=== PATIENT | female | born 1995 | race Caucasian/White ===

== ENCOUNTER → 2018-04-09 12:10 | Outpatient (CLI) | payer OTHER, SELFPAY ==
[2018-04-09 13:01] LABS: hCG Titer Quant., Serum 1918 mIU/mL (<9 non-preg)
--- OUTSIDE RECORDS SUMMARY | 2018-06-03 19:58 | XMS RPT_ITS ---
:07/05/1963 Author Organization [employer] Address [address] [place] [address] Phone Care Team Providers Name Role Phone Aj FERRO, Catalino Guerra Unavailable Reason for Visit Reason For Visit Description Start Date New - 1st visit with practice Preliminary reason for visit data, not yet signed by the author as of right knee pain Preliminary reason for visit data, not yet signed by the author as of Chief Complaint Chief Complaint Description Start Date right knee pain Preliminary chief complaint data, not yet signed by the author as of Instructions No information available. Plan of Care Type Date Detail Appointment 07:00 AM Dean Salinas PT, [address], [place], [address], Appointment 11:15 AM Catalino Rocha MD, [address] [place] [address], [place], [address], Appointment 07:00 AM Dean Salinas PT, [address], [place], [address], Appointment 07:30 AM Catalino Rocha MD, [address] , [place], [address], Appointment 01:10 PM Sydnee Sanchez PA-C, [address] [place], [address], Pending order XR KNEE 1-2 VWS-RT Medications Medication Instructions Start Stop Generic Name NDC Provider Date Date MILK THISTLE takes one daily MILK THISTLE 06295720122 Aarti CAPS 0 CAPS Czyzyk PA-C CALCIUM 1200+D3 takes 1 tablet CALCIUM-MAGN 46369574050 Hanna Gordon TABLET EXTENDED daily 0 ESIUM-VITAMI DIRECTOR OF HOTEL 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 RELEASE 24 HOUR N D BR95A-CIP VITAMIN C 500 MG takes 1 tablet ASCORBIC 58425780829 Hanna Gordon TABS daily 0 ACID DIRECTOR OF HOTEL OPERATIONS PROBIOTIC CAPS takes 1 capsule PROBIOTIC [id number] Hanna Gordon daily 0 PRODUCT DIRECTOR OF HOTEL OPERATIONS MULTIVITAMIN takes 1 tablet MULTIPLE 77762884075 Hanna Gordon ADULT TABS once a day 0 VITAMINS-MIN DIRECTOR OF HOTEL OPERATIONS ERALS Conditions or Problems Problem Name Problem Onset Status Entry Provider Comment Standard Annotate Code Date Date Description Acute medial 887073594 Active Sydnee L Acute meniscal meniscus (SNOMED 12/27 12/27 Sanchez tear, medial tear of CT) PA-C right knee Left ACL 651564396 Active Sydnee L Rupture of tear (SNOMED 12/27 12/[address]) PA-C cruciate ligament Complete 392128006 Active Sydnee L Complete tear, tear of (SNOMED 12/27 12/27 Sanchez knee, anterior right ACL CT) PA-C cruciate ligament Rupture of 678615044 Active Trae Vasquez Rupture of dislocation right (SNOMED 07/22 07/22 Joseph FERRO tendon of no tear proximal CT) biceps biceps tendon, subsequent encounter Complete 544355579 Active Trae Vasquez Full thickness tear of (SNOMED 06/22 06/22 Joseph FERRO rotator cuff right CT) tear rotator cuff Tear of 389154042 Active Trae Vasquez Disorders of 2005 surgery anterior (SNOMED 06/22 06/22 Joseph FERRO musculoskeletal reconstructi cruciate CT) implants and on spectron ligament repairs ortho graft, initial encounter Tear of 720221391 Active Trae Vasquez Current tear of medial (SNOMED 06/22 06/22 Joseph FERRO medial meniscus of CT) cartilage right knee, AND/OR meniscus current, of knee unspecified tear type, initial encounter Hx of 357836654 Active Trae Vasquez History of right knee anterior (SNOMED 06/22 06/22 Joseph FERRO reconstruction [address]) of anterior ligament cruciate tear ligament tear reconstructi on Hx of 469378031 Active Trae Vasquez History of left Dr anterior (SNOMED 06/22 06/22 Joseph FERRO operative Joseph cruciate CT) procedure on ligament knee surgery Impingement 705955773 Active Eduardo R Impingement syndrome of (SNOMED 06/07 06/07 Tu FERRO syndrome of right CT) shoulder region shoulder Allergies, Adverse Reactions, Alerts Allergy Name Reaction Start Date Severity Status Provider Description TOMATOES rash Critical Active Aarti SALCEDO-C CASHEWS rash Moderate Active Trae Ruiz MD DUST rash Mild Active Trae Ruiz MD DOGS AND CATS Critical Active Trae Ruiz MD CORNS Critical Active Trae Ruiz MD PEANUTS Critical Active Aarti Carr PA-C FEATHERS Critical Active Aarti Carr PA-C MORPHINE convulsions, Critical Active Colincharline Anaya SULFATE shortness of breath, blacking out SEASONAL Critical Active Colin Anaya Social History No information available. Vital Signs Date Name Value Unit Description BMI (Body Mass 20.62 kg/m2 Body Mass Index Index) [Ratio] Preliminary vital sign data, not yet signed by the author as of BP Diastolic 68 mm[Hg] blood pressure, diastolic Preliminary vital sign data, not yet signed by the author as of BP Systolic 100 mm[Hg] blood pressure, systolic Preliminary vital sign data, not yet signed by the author as of Heart Rate 65 /min pulse rate E&M Preliminary vital sign data, not yet signed by the author as of Height 63 [in_us] height E&M Preliminary vital sign data, not yet signed by the author as of Height 160 cm height in centimeters E&M Preliminary vital sign data, not yet signed by the author as of Weight Measured 116 [lb_av] weight E&M Preliminary vital sign data, not yet signed by the author as of Weight Measured 53 kg weight in kilograms E&M Preliminary vital sign data, not yet signed by the author as of Results Date Name Value Unit Range Flag Description Office Visit: New - 1st visit with practice, Rm: 7 MEDS REVIEW Done Documentation of current medications (procedure) Preliminary observation data, not yet signed by the author as of Preliminary observation data, not yet signed by the author as of XRAY HX of the right knee xray history - PA Flex and Beatty on 06/22/2017 at [facility] Preliminary observation data, not yet signed by the author as of MRI HX of the right knee MRI (magnetic on 07/06/[address] [facility]) history Preliminary observation data, not yet signed by the author as of Clinical Summary: [facility] [place] Office Visit: Postop - subsequent visit, Rm: 43 MEDS REVIEW Done Documentation of current medications (procedure) Clinical Summary: [facility] [place] Procedures Code Procedure Name Date Entry Date [id number] POLAR CARE [place] COMBO - KNEE (BREG) J1453C CRUTCHES - ADULT ([facility]) L1833 T-SCOPE POST-OP KNEE (BREG) P2050Q OTS ACL (DJO) J1041X CUSTOM ACL (DJO) G8730 Pain assessment documented as positive - follow-up documented G8427 Current medications documented 1036F Tobacco screening was negative - non user G8420 BMI documented within normal parameters - no follow-up plan is required G8783 Blood pressure within normal parameters - no follow-up required [facility]-[id number] Patient Encounter Medications Administered No information available. Immunizations No information available. Advance Directives There may be information available, but it has not been provided by the sender. Assessments There may be information available, but it has not been provided by the sender. Review of Systems There may be information available, but it has not been provided by the sender. Family History There may be information available, but it has not been provided by the sender. History of Past Illness There may be information available, but it has not been provided by the sender. History of Present Illness There may be information available, but it has not been provided by the sender.
--- OUTSIDE RECORDS SUMMARY | 2018-06-03 19:59 | XMS RPT_ITS ---
:1995 Author Organization OHIP Care Team Providers Name Role Phone Monique Benjamin Attending Unavailable Deoras, Shivani Referring Unavailable SealsRyan Attending Unavailable Deoras, Shivani Primary Care Unavailable MysRyan Referring Unavailable Christina Kumar Attending Unavailable Deoras, Shivani Primary Care Unavailable Christina Kumar Referring Unavailable SouravMonique Attending Unavailable Deoras, Shivani Primary Care Unavailable Deoras, Shivani Referring Unavailable Deoras, Shivani Primary Care Unavailable PROVIDER, UNKNOWN Attending Unavailable Gardenia Villafana Attending Unavailable Deoras, Shivani Referring Unavailable Deoras, Shivani Primary Care Unavailable Deoras, Shivani Referring Unavailable Deoras, Shivani Primary Care Unavailable UNKNOWN, PROVIDER Attending Unavailable Deoras, Shivani Referring Unavailable Deoras, Shivani Primary Care Unavailable Jass Scott Attending Unavailable DEORAS, SHIVANI S Attending Unavailable REFERRED, SELF Referring Unavailable DEORAS, SHIVANI S Primary Care Unavailable DEORAS, SHIVANI S Attending Unavailable REFERRED, SELF Referring Unavailable DEORAS, SHIVANI S Primary Care Unavailable AIDEN CRESPO Attending Unavailable Kathie CRESPO Attending Unavailable DEORAS, SHIVANI S Primary Care Unavailable PROBLEMS PROBLEMS DATE TYPE CONDITION / CODE ATTENDING STATUS SOURCE 04/26/2018 Unknown Z34.90 - Monique Benjamin Active [place] Encounter for Community supervision of Hospital normal , Repository unspecified, unspecified trimester / Z34.90(ICD-10) 04/26/2018 Unknown Z34.01 - Monique Benjamin Active [place] Encounter for Community supervision of [facility] normal first Repository , first trimester / Z34.01(ICD-10) 04/26/2018 Unknown Z3A.01 - Less Monique Benjamin Active [place] than 8 weeks Community gestation of Hospital / Repository Z3A.01(ICD-10) 04/11/2018 Unknown N91.2 - Antonio Active [place] Amenorrhea, Christina [facility] unspecified / Hospital N91.2(ICD-10) Repository 11/11/2017 Admitting Pneumonia, Jass Scott [employer] Diagnosis unspecified System organism / Repository J18.9(ICD-10) 11/11/2017 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) use of System non-steroidal Repository non-inflam (NSAID) / Z79.1(ICD-10) 11/11/2017 Admitting Pleurodynia / SoniaBradyin Active [facility] Diagnosis R07.81(ICD-10) System Repository 07/19/2017 Admitting Cardiac murmur, Unknown Active [facility] Diagnosis unspecified / System R01.1(ICD-10) Repository 07/19/2017 Admitting Contusion of Unknown Active [facility] Diagnosis lower back and System pelvis, initial Repository encounter / S30.0XXA(ICD-10) 07/19/2017 Admitting Unspecified Unknown Active [facility] Diagnosis injury of head, System initial encounter Repository / S09.90XA(ICD-10) 07/19/2017 Admitting Sprain of Unknown Active [facility] Diagnosis unspecified System ligament of left Repository ankle, init encntr / S93.402A(ICD-10) 07/19/2017 Admitting Sprain of Unknown Active [facility] Diagnosis unspecified site System of left knee, Repository initial encounter / S83.92XA(ICD-10) 07/19/2017 Admitting Fall (on) (from) Unknown Active [facility] Diagnosis other stairs and System steps, initial Repository encounter / W10.8XXA(ICD-10) 07/19/2017 Admitting Pain in Unknown Active [facility] Diagnosis unspecified ankle System / M25.579(ICD-10) Repository 06/21/2017 Admitting Urinary tract JeromGardenia woods Active [facility] Diagnosis infection, site System not specified / Repository N39.0(ICD-10) 06/21/2017 Admitting Rash and other Gardenia Villafana Active [facility] Diagnosis nonspecific skin System eruption / Repository R21(ICD-10) 05/22/2017 Active Unspecified lump DROGELL, Active [facility] in unspecified [facility] breast / Repository N63.0(ICD-10) 05/22/2017 Admitting Unknown / Kathie CRESPO Active [facility] diagnosis UNK(Unknown) [facility] Repository 04/30/2017 Admitting Unsp injury of Unknown Active [facility] Diagnosis left wrist, hand System and finger(s), Repository init encntr / S69.92XA(ICD-10) 04/30/2017 Admitting Striking against Unknown Active [facility] Diagnosis other stationary System object, initial Repository encounter / W22.09XA(ICD-10) PROCEDURES PROCEDURES No Procedure Records FoundRESULTS RESULTS CT/NG [facility] BY PCR Collected: 04/26/2018 Status: F Source: MICHELLE 6:48 PM [facility] REPOSITORY TYPE CODE TESTS RESULT OUT OF RANGE REFERENCE UNITS LAB L8200.2100 Negative Normal Chlam Negative Trac PCR LAB L8200.2200 Negative Normal NG by Negative PCR Performed By: #### L8200.2000 #### [facility] [address] [place], [address] PUBLIC INFORMATION DIRECTOR OFFICE VISIT Observed: 04/26/2018 Status: F Source: MICHELLE REPORT 1:19 PM [facility] REPOSITORY [facility] [address] [place] [address] OFFICE VISIT Date of Service: 04/26/18 MR#: [id number] Acct: [id number] Name: DELMA BARTON Rep #: [id number] : 1995 Provider: JOANN Benjamin Age/Sex: 22/F Location: [facility] Status: Signed Intake Intake Visit Reasons: NOB LMP? Medications promethazine 12.5 mg tablet 12.5 mg PO Q6H PRN #60 tab 04/22/18 [Rx] Last Menstral Period: 02/25/17 HPI NOB LMP?: Details: DELMA BARTON is a 22 year old who presents for New OB visit. OB Visit BEV Calculator Estimated Delivery Date 12/12/18 Based on Ultrasound Date 04/26/18 Current WG 7w 1d Number 1 Expected Delivery Route/Plan Specific Issue/Plans flu vaccine: declines minichart given: yes tdap vaccine: [] rhogam: [] LARC form signed: [] labor support person: Amy pain management: [] cut cord/dad catch: [] : [] PP control planned: [] special requests: [] Initial Weight: Not Recorded Date Weight BP Urine PrFHR FuHt Pres MoCTX DilationFetal StVisit NoProviderComments E ot v te GA G Effac lucose ed Menstrual History Last Menstral Period: 02/25/17 Reported LMP: approximate (month known) (Feb) Normal amount/duration: Yes On hormonal BC at conception: No Antepartum Record Genetic Screening: Congenital Heart Defect: Other, Neural Tube Defect: Other, Hemoglobinopathy Or Carrier: Other, Cystic Fibrosis: Other, Chromosome Abnormality: Other, Nicola-Sachs: Other, Hemophilia: Other, Intellectual Disability/Autism: Other (Cousin with autism), Recurrent Loss/Stillbirth: Other, Other Structural Defect: Other, Other Genetic Disease: Other, Maternal Metabolic Disorder: Other Comments/Counseling: Reviewed and negative Infection History: Live with someone with TB or Exposed to TB: No, Patient or Partner has history of Genital Herpes: No, Rash or Viral illness since last mentrual period: No, Prior GBS-Infected child: No, History of STD: No, HIV Infection: No, History of Hepatitis: No, Recent travel outside of : No, Concern for Hep exposure: No, Varicella immune: Yes (had vaccine) Medical History Medical History: Negative: Diabetes, Hypertension, Heart disease, Auto-immune disorder, Kidney disease/UTI, Neurologic/epilepsy, Psychiatric, Depression/ depression, Hepatitis/liver disease, Varicosities/phlebitis, Thyroid dysfunction, Trauma/domestic violence, History of blood transfusions, D (Rh) Sensitized, Pulmonary (e.g.,TB,Asthma), Seasonal allergies, Drug/latex allergies/reactions, Breast, 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, Operations/hospitalizations, Anesthetic complications, History of abnormal pap, Uterine anomaly/shandra, Infertility, Anti-retroviral treatment, Relevant family history, Other ROS Const Reports as per HPI Card Denies chest pain, Denies shortness of breath Resp Denies shortness of breath GI Denies change in stools Denies difficulty urinating, Denies abnormal vaginal bleeding, Denies vaginal odor, Denies vaginal itching, Denies vaginal discharge Exam Const General: cooperative, healthy appearing, well developed Nutritional Appearance: average body habitus, well nourished Orientation: oriented x3 Neck Neck: normal visual inspection Neck mass: No Thyroid: thyroid normal Chest Chest palpation AND inspection: normal inspection of the chest Breast inspection: normal inspection of the breasts, normal inspection of the axillae Resp Effort AND Inspection: normal respiratory effort GI Inspection: normal to inspection Palpation: soft, nontender, no masses External Female Exam: normal external appearance, normal appearance of the urethra Urethra: normal appearance of the urethra Speculum Exam - Vagina: normal appearance of the vagina, normal vaginal discharge Speculum Exam - Cervix: normal appearance of the cervix, closed cervix, other ( GCC collected) Bimanual Exam- Vagina AND Uterus: normal bimanual exam, uterine shape normal, uterine size normal (10 weeks) Bimanual Exam- Adnexa, other: normal adnexae, no adnexal masses, adnexae non-tender Other: CRL 10.5mm per US DAX: 7 wk 1 d. BEV 12/12/18 Skin General: no rashes or lesions noted, turgor normal Assessment AND Plan Problems 1. Encounter for supervision of normal first in first trimester Z34.01 Grav 1 BEV 12/12/18 BF: Amy 2. Less than 8 weeks gestation of Z3A.01 Plans NIPT Plan Patient oriented to practice and discussed care expectations and screenings. ACOG book offered to patient. labs and 19-20 week anatomy ultrasound ordered Genetic screening offered to patient and patient chose: NIPT RTO 4 weeks Coding Level of Care Code Off vis,new,level 4 Diagnoses Encounter for supervision of normal first in first trimester Z34.01 Trimester: first trimester Less than 8 weeks gestation of Z3A.01 Weeks of gestation: less than 8 weeks 04/26/18 1319 <Electronically signed by Monique THAKKAR> Date Monique THAKKAR Cosigner Signature: Date (if applicable) CC: HCG TITER QUANT., Collected: 04/09/2018 Status: F Source: MICHELLE SERUM 12:11 PM [facility] REPOSITORY Order Comment: PER REQ, PLEASE CALL DR KUMAR WITH RESULTS: [phone] TYPE CODE TESTS RESULT OUT OF RANGE REFERENCE UNITS LAB L700.8000 <9 non-preg mIU/mL High HCG 1918 QUANT. Result Comment: Critical Result(s) Called at: 13:02:31 04/09/2018 by: Charlie Fuentes to Performed By: #### L700.8000 #### [facility] [address] [place], [address] CTA CHEST W/ + W/O Observed: 11/11/2017 Status: F Source: [employer] CONTRAST 2:53 PM SYSTEM REPOSITORY Patient Name: DELMA BARTON CT Exam Date/Time 11/11/2017 14:33:39 EDT Exam CTA Chest w/ + w/o Contrast Ordering Physician MANJINDER RAMÍREZ DANIEL M Accession Number [id number] CPT4 Codes 21571 (), Q9967 () Reason For Exam dyspnea, chest pain Report Reasons for examination: Cough chest pain. CT scan of the chest were performed with bolus contrast and high resolution scans for CT pulmonary angiographic study, with images post-processed by myself on [employer] workstation, with 3D - volume rendered CT and MPR angiographic images reconstructed. The heart size is normal, and there are no pericardial or pleural effusions. There are no congestive changes in the pulmonary vasculature. The thoracic aorta is unremarkable. CT pulmonary angiographic examination is a high quality study, which demonstrates no evidence of acute pulmonary embolism. The right side of the heart, pulmonary outflow tract, right and left main, lobar, and larger segmental pulmonary arteries all appear clear. Note that the technique is limited for detection of small, subsegmental, peripheral emboli, but none are seen. IMPRESSION: 1.Negative CT scan of the chest for evidence of acute pulmonary embolism. 2. Left lower lobe alveolar infiltrate compatible with pneumonia Report Dictated on Final Dictating Physician: MD WONG WILLIAM Signed Date and Time: 11/11/2017 2:56 pm Signed by: MD WONG WILLIAM Transcribed Date and Time: 11/11/2017 2:57 CR CHEST PA/LAT Observed: 11/11/2017 Status: F Source: [employer] 1:31 PM SYSTEM REPOSITORY Patient Name: DELMA BARTON Diagnostic Radiology Exam Date/Time 11/11/2017 13:16:43 EDT Exam CR Chest PA/LAT Ordering Physician MANJINDER RAMÍREZ DANIEL M Accession Number [id number] CPT4 Codes 05112 () Reason For Exam cough, chest pain Report CHEST: CLINICAL INDICATION: Cough, chest pain TECHNIQUE: PA and Lateral COMPARISON: None FINDINGS: Patchy airspace opacities of the left lung base, which may represent atelectasis versus infiltrate. No pulmonary edema. No pleural effusions or pneumothorax. The cardiac and mediastinal silhouettes are normal. The osseous structures are unremarkable. IMPRESSION: Patchy airspace opacities of the left lung base, which may represent atelectasis versus infiltrate. Report Dictated on Final Dictating Physician: MD NEUMANN KEVIN Signed Date and Time: 11/11/2017 1:32 pm Signed by: MD NEUMANN KEVIN Transcribed Date and Time: 11/11/2017 1:33 HEMOGRAM W/ AUTODIFF Collected: 11/11/2017 Status: F Source: [employer] 12:31 PM SYSTEM REPOSITORY TYPE CODE TESTS RESULT OUT OF REFERENCE UNITS RANGE LAB IWBC 3.6-10.7 10*3/uL WBC Normal 5.1 LAB RBC 3.80-5.20 10*6/uL RBC Normal 3.81 LAB HGB 11.7-16.0 g/dL Hemoglobin Normal 11.8 LAB HCT 35.0-47.0 % Low Hematocrit 33.0 LAB MCV 79.0-98.0 fL MCV Normal 86.7 LAB MCH 26.0-34.0 pg MCH Normal 31.1 LAB MCHC 32.0-36.0 % MCHC Normal 35.9 LAB RDW 11.5-14.5 % RDW Normal 12.8 LAB PLT 140-440 10*3/uL Platelet Normal 176 LAB MPV 7.4-10.4 fL MPV Normal 9.8 LAB GRAN% 40.0-80.0 % Granulocytes Normal 51.7 LAB LYMP% 20.0-40.0 % Lymphocytes Normal 34.4 LAB MONO% 2.0-10.0 % Monocytes Normal 9.8 LAB EOS% 1.0-6.0 % Eosinophils Normal 3.4 LAB BAS% 0.0-2.0 % Basophils Normal 0.7 LAB ANC 1.8-7.0 10*3/uL Abs Normal Neutrophile Cnt 2.6 LAB ALC 1.0-4.3 10*3/uL Abs Lymph Cnt Normal 1.7 LAB AMC 0.0-0.8 10*3/uL Abs Monocyte Normal Cnt 0.5 LAB AEC 0.0-0.5 10*3/uL Abs Eosin Cnt Normal 0.2 LAB ABC 0.0-0.2 10*3/uL Abs Baso Cnt Normal 0.0 Performed By: #### HEMDF, BMP3, DDI2, TROPN, QWAL #### [employer] [facility] [address] [place] [address] BASIC METABOLIC PANEL Collected: 11/11/2017 Status: F Source: [employer] 12:31 PM SYSTEM REPOSITORY TYPE CODE TESTS RESULT OUT OF RANGE REFERENCE UNITS LAB NA3 137-145 mmol/L Sodium Normal 142 LAB K3 3.5-5.1 mmol/L Low Potassium 3.4 LAB CL3 98-107 mmol/L Chloride Normal 106 LAB CO23 22-30 mmol/L Carbon Normal Dioxide 28 LAB ANIN3 NA Anion Gap 9 LAB GLUC3 70-100 mg/dL Glucose Normal 80 LAB BUN3 7-20 mg/dL Urea Normal Nitrogen 12 LAB CRET3 0.52-1.25 mg/dL Normal Creatinine 0.75 LAB GF3BR >60 mL/min eGFR > 60.0 LAB GF3WR >60 mL/min eGFR OTHER > 60.0 Result Comment: Source- MDRD equation with creatinine calibration to IDMS(NKDEP) eGFR not recommended for drug dose adjustment LAB CA3 8.4-10.4 mg/dL Normal Calcium 9.4 Performed By: #### HEMDF, BMP3, DDI2, TROPN, QWAL #### [facility] [address] [place] [address] D-DIMER, INNOVANCE Collected: 11/11/2017 Status: F Source: [employer] 12:31 PM SYSTEM REPOSITORY TYPE CODE TESTS RESULT OUT OF REFERENCE UNITS RANGE LAB 2DDI 0.00-0.50 mg/L High D-Dimer, 0.60 [employer] Result Comment: [employer] D-Dimer values of <0.50 mg/L FEU can be used in combination with a pre-test probability model (e.g. Well's) to exclude pulmonary embolism (PE) disease, as well as an aid in the diagnosis of deep vein thrombosis (DVT). Performed By: #### HEMDF, BMP3, DDI2, TROPN, QWAL #### [facility] [employer] [facility] [address] [place] [address] TROPONIN I Collected: 11/11/2017 Status: F Source: [employer] 12:31 PM SYSTEM REPOSITORY TYPE CODE TESTS RESULT OUT OF RANGE REFERENCE UNITS LAB TROP4 0.000-0.034 ng/mL Normal Troponin I < 0.012 Result Comment: 0.046 - 0.400 = Indeterminate > 0.400 = Consider Myocardial Injury Performed By: #### HEMDF, BMP3, DDI2, TROPN, QWAL #### [facility] [address] [place] [address] HCG QUAL PREG Collected: 11/11/2017 Status: F Source: [employer] 12:31 PM SYSTEM REPOSITORY TYPE CODE TESTS RESULT OUT OF RANGE REFERENCE UNITS LAB QWLC m[IU]/mL Normal hCG NEGATIVE Qual Preg Result Comment: REF RANGE: Negative .... < 3 Questionable Rpt 48-72 Hr Positive ..... > 10 Performed By: #### HEMDF, BMP3, DDI2, TROPN, QWAL #### [employer] [facility] [address] [place] [address] CR ANKLE 3+ VIEWS Observed: 07/19/2017 Status: F Source: [employer] [facility] 1:14 PM SYSTEM REPOSITORY Patient Name: DELMA BARTON Diagnostic Radiology Exam Date/Time 07/19/2017 13:24:48 EDT Exam CR Ankle 3+ Views Left Ordering Physician MANJINDER RAMÍREZ DANIEL M Accession Number [id number] CPT4 Codes 90626 () Reason For Exam pain Report LEFT ANKLE: CLINICAL INDICATION: Left ankle pain. TECHNIQUE: AP, Lat, Oblique COMPARISON: None. FINDINGS: There is no evidence for fracture or dislocation. No bone lesion is identified. Mild lateral malleolus soft tissue swelling. IMPRESSION: Mild lateral malleolus soft tissue swelling. No fracture or dislocation. Report Dictated on Final Dictating Physician: MD NEUMANN KEVIN Signed Date and Time: 07/19/2017 1:15 pm Signed by: MD NEUMANN KEVIN Transcribed Date and Time: 07/19/2017 1:24 CR KNEE 3 VIEWS Observed: 07/19/2017 Status: F Source: [facility] LEFT 1:13 PM SYSTEM REPOSITORY Patient Name: DELMA BARTON Diagnostic Radiology Exam Date/Time 07/19/2017 13:24:48 EDT Exam CR Knee 3 Views Left Ordering Physician MANJINDER RAMÍREZ DANIEL M Accession Number [id number] CPT4 Codes 84090 () Reason For Exam pain/injury Report Left knee: 07/19/2017. Clinical Information: Pain. Findings: Three views of the left knee reveal the bones to be well mineralized. There is no evidence of fracture or dislocation. The joint spaces are maintained. No joint effusion is identified. Screws are present in the distal femur and proximal tibia from prior ligamentous reconstruction. Impression: No acute process. Report Dictated on Final Dictating Physician: MD BOWEN RISA Signed Date and Time: 07/19/2017 1:14 pm Signed by: MD BOWEN RISA Transcribed Date and Time: 07/19/2017 1:24 Observed: 06/21/2017 Status: F Source: [facility] CHLAMYDIA AND GC PCR 10:55 PM SYSTEM REPOSITORY PANEL Specimen Source Comment:[facility] Patient name: DELMA BARTON M.R.N.: [id number] : 1995 Age: 22 Sex: F Ord. Physician: GARDENIA VILLAFANA Location: [place] [address] Copy to: GARDENIA VILLAFANA DISCHARGED: 06/22/17 Adm. Date: 06/21/17 MICROBIOLOGY ORDER#: [id number] COLLECTED: 06/21/17 22:55 SOURCE: Cervix RECEIVED: 06/21/17 23:01 OE C O M M E N T S Specimen Source Comment:Cervix Chlamydia trachomatis PCR FINAL 06/22/17 12:12 06/22/17 NOT Detected Chlamydia trachomatis Nucleic Acid NOT Detected by DNA Amplification using the [employer] System. Culture is the only recommended test in medical-legal cases such as suspected child abuse or molestation. Neisseria gonorrhoeae PCR FINAL 06/22/17 12:12 06/22/17 NOT Detected Neisseria gonorrhoeae Nucleic Acid NOT Detected by DNA Amplification using the [employer] System. Culture is the only recommended test in medical-legal cases such as suspected child abuse or molestation. Performed By: #### CTNGP #### [address] [address] Observed: 06/21/2017 Status: F Source: [facility] [employer] VAGINAL PATHOGENS DNA 10:55 PM SYSTEM REPOSITORY - AFFIRM [facility] Patient name: JESUS BARTONRAJWINDER Guerra M.R.N.: [id number] : 1995 Age: 22 Sex: F Ord. Physician: GARDENIA VILLAFANA Location: Copy to: GARDENIA VILLAFANA DISCHARGED: 06/22/17 Adm. Date: 06/21/17 MICROBIOLOGY ORDER#: [id number] COLLECTED: 06/21/17 22:55 SOURCE: Vagina (Vagina) RECEIVED: 06/21/17 23:01 Danni - Vaginal Pathogens DNA FINAL 06/23/17 07:08 06/23/17 POSITIVE Gardnerella - Vaginal Pathogens DNA FINAL 06/23/17 07:08 06/23/17 POSITIVE Trichomonas - Vaginal Pathogens DNA FINAL 06/23/17 07:08 06/23/17 Negative Performed By: #### AFIRM #### [address] [address] Observed: 06/21/2017 Status: F Source: [facility] [employer] CULTURE URINE 10:55 PM SYSTEM REPOSITORY Specimen Source Comment:Urine, clean catch [facility] Patient name: JESUS BARTONRAJWINDER Guerra M.R.N.: [id number] : 1995 Age: 22 Sex: F Ord. Physician: GARDENIA VILLAFANA Location: Copy to: GARDENIA VILLAFANA DISCHARGED: 06/22/17 Adm. Date: 06/21/17 MICROBIOLOGY ORDER#: [id number] COLLECTED: 06/21/17 22:55 SOURCE: Urine RECEIVED: 06/21/17 23:09 OE C O M M E N T S Specimen Source Comment:Urine, clean catch CULTURE URINE FINAL 06/24/17 08:17 06/23/17 Normal urogenital geo present. <10,000 CFU/ml Streptococcus agalactiae (Group B) Susceptibility testing not routinely performed. Group B streptococcus is universally susceptible to beta-lactam antibiotics and vancomycin. If patient is beta-lactam allergic, please call [facility] Microbiology lab ([phone]) within 2 days to request susceptibility testing. If isolated from urine, Group B strep may indicate colonization or infection. Performed By: #### C/UR #### [place] [place] [address] BREAST LIMITED Observed: 05/31/2017 Status: F Source: [place] UNILATERAL 3:05 PM [facility] REPOSITORY [facility] Imaging Services [address] [place] [address] Breast Limited Unilateral MR#: [id number] Acct: [id number] Name: DELMA BARTON Rep #: [id number] : 1995 F 22 From: Santos Crooks MD PCP: Shivani Nur MD Status: REG CLI Study: Breast Limited Unilateral Date of Exam: 05/31/17 Exam# [id number] Ordering Dr: Ryan Sanabria MD STUDY: ULTRASOUND BREAST - RIGHT REASON FOR EXAM: Female, 22 years old. Palpable lump in the upper outer quadrant of the right breast. TECHNIQUE: Axial and longitudinal images of the RIGHT breast were performed with a high resolution ultrasound transducer. COMPARISON: None. FINDINGS: RIGHT Breast: There is a 6 mm x 8 mm x 5 mm lymph node at the 10:00 in the breast at 6 cm from the nipple. This corresponds to the palpable abnormality. IMPRESSION: The palpable abnormality corresponds to an 8 mm x 6 mm x 5 mm lymph node. ASSESSMENT CATEGORY: BIRADS Category 2: Benign. A letter regarding these results will be sent to the patient by the facility within 30 days. Electronically Signed: Santos Crooks MD at 19:24 EST Tel [phone], Service support , STUDY: ULTRASOUND BREAST - LEFT REASON FOR EXAM: Female, 22 years old. Palpable abnormality in the left retroareolar region. Breast discharge. TECHNIQUE: Axial and longitudinal images of the LEFT breast were performed with a high resolution ultrasound transducer. COMPARISON: None. FINDINGS: LEFT Breast: There is a 9 mm x 10 mm x 5 mm lymph node at the 3:00 position in the breast at 1 cm from nipple. US/Breast Limited Unilateral IMPRESSION: 9 mm x 10 mm x 5 mm lymph node in the retroareolar region of the left breast. ASSESSMENT CATEGORY: BIRADS Category 2: Benign. A letter regarding these results will be sent to the patient by the facility within 30 days. Electronically Signed: Santos Crooks MD at 19:24 EST Tel [phone], Service support , CC: Shivani Nur MD; Ryan Sanabria MD Sheet Metal Apprentice: Signed ED PROV NOTE Observed: 05/22/2017 Status: COMPLETED Source: [place] 6:55 PM [facility] REPOSITORY HNO ID: [id number] Author: Aiden Crespo MD Service: Emergency Medicine Author Type: Physician Type: ED Provider Notes Filed: 05/22/2017 6:58 PM Note Text: 22-year-old female presenting for a left breast mass. Patient states she noticed a palpable mass left breast. It is tender with palpation. She denies overlying redness, warmth. She denies fevers, chills. She denies trauma or injury. She is a family history of breast cancer. She saw her PCP has an appointment with a plating equipment tender on Wednesday. She states she noted some blood in her bra this morning and was concerned about presented for evaluation. On exam, she is nontoxic, well-appearing. Afebrile. Nontoxic, well-appearing. She has a small palpable left breast mass that is movable. She does have cystic breasts bilaterally. No overlying redness, warmth. No discharge from the nipple. No signs of cellulitis or abscess. Exam done with resident physician, Dr. Nieto. At this point, we recommended follow-up with her plating equipment tender for further workup and management. Patient and mother were comfortable with this plan. Discussed the importance of close follow-up with the specialist. They verbalized understanding. Aiden Crespo MD 05/22/17 1858 ED PROV NOTE Observed: 05/22/2017 Status: COMPLETED Source: [place] 6:29 PM [facility] REPOSITORY HNO ID: [id number] Author: Petra Vick MD Service: Emergency Medicine Author Type: Resident Type: ED Provider Notes Filed: 05/22/2017 10:21 PM Note Text: Attestation signed by Aiden Crespo MD at 05/22/2017 11:14 PM Attending Note I evaluated the patient and personally participated in the dennis components. I agree with the resident's findings and plan as documented and have discussed the case and management of the patient's care with the resident. Signature: Aiden Crespo MD Date: 05/22/2017 Time: 11:13 PM ED Provider Note Patient Name: Delma Barton SERVICE DATE: 05/22/17 History Patient presents with: Breast Mass History provided by: Patient hand alterations tailor used: No Patient is a 22-year-old female presenting with a left breast mass that has been present for the last few days. Patient states she went to her primary care physician with the mass and was instructed to make an appointment with PUBLIC INFORMATION DIRECTOR which is scheduled for May 25, 2017. Patient states however this morning when she woke up she noticed blood in her bra the left breast that she assumed was from the lesion on her breast. Patient's review was of systems was otherwise negative. PAST MEDICAL HISTORY Diagnosis Date - ACL (anterior cruciate ligament) tear - Dysfunctional uterine bleeding - Dysmenorrhea PAST SURGICAL HISTORY Procedure Laterality Date - NONE FAMILY HISTORY Problem Relation Age of Onset - Breast Cancer Maternal Grandmother - Cancer - other [Other] [OTHER] Maternal Grandfather - Hypertension Mother - Lung cancer [Other] [OTHER] Maternal Grandmother Social History Social History Main Topics - Smoking status: Never Smoker - Smokeless tobacco: None - Alcohol use No Comment: Non-drinker - Drug use: No - Sexual activity: Not Asked ALLERGIES No Known Allergies Review of Systems Constitutional: Negative for activity change, chills and fever. HENT: Negative for hearing loss, sinus pressure and tinnitus. Eyes: Negative for pain, discharge and itching. Respiratory: Negative for cough, shortness of breath and stridor. Gastrointestinal: Negative for abdominal pain, constipation and vomiting. Genitourinary: Negative for dysuria, frequency, hematuria and urgency. Musculoskeletal: Negative for arthralgias, joint swelling and myalgias. Skin: Negative for color change, pallor, rash and wound. Neurological: Negative for dizziness, weakness and numbness. Psychiatric/Behavioral: Negative for agitation and confusion. The patient is not nervous/anxious. Physical Exam BP 118/95 Pulse 63 Temp (Src) 97.5 (Oral) Resp 16 Ht 5' 5 (1.65m) Wt 155 lb (70.3kg) SpO2 99% BMI 25.79 kg/(m2). Physical Exam Constitutional: She is oriented to person, place, and time. She appears well-developed and well-nourished. No distress. HENT: Head: Normocephalic and atraumatic. Mouth/Throat: Oropharynx is clear and moist. No oropharyngeal exudate. Eyes: Right eye exhibits no discharge. Left eye exhibits no discharge. Neck: No tracheal deviation present. Cardiovascular: Normal rate, regular rhythm and normal heart sounds. No murmur heard. Pulmonary/Chest: No stridor. No respiratory distress. She has no wheezes. She has no rales. Abdominal: She exhibits no distension. There is no tenderness. There is no rebound. Musculoskeletal: She exhibits no edema or tenderness. Lymphadenopathy: She has no cervical adenopathy. Neurological: She is alert and oriented to person, place, and time. Skin: Skin is warm and dry. No rash noted. She is not diaphoretic. No erythema. No pallor. Psychiatric: She has a normal mood and affect. Her behavior is normal. Diagnostic Testing ED Labs Ordered and Reviewed - No data to display Procedures Medical Decision Making / ED Course ED Course On evaluated the patient and appreciated the 1 cm diameter nodule at the 2 O'clock position the patient is sitting up light and the need for any pole while patient is laying flat in bed. No imaging obtained as patient is denies fevers or chills, the area is not erythematous And no flatulence or drainage appreciated on palpation. 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 Discussed this plan with the patient and patient is in agreement with the plan. Encounter Diagnosis ICD-10-CM 1. Breast nodule N63.0 Plan The Patient was DISCHARGED: Counseled patient regarding need for follow-up. Discharged home with verbal and written instructions. They were instructed to return as needed for persistent or worsening symptoms or any new concerns. Condition at time of disposition: stable SIGNATURE: MD Petra Atwood (Res) MD Nava Resident 05/22/17 2221 Aiden Crespo MD 05/22/17 2314 8 Observed: 05/22/2017 Status: COMPLETED Source: [place] 5:02 PM [facility] REPOSITORY HNO ID: [id number] Author: Johnny Chaudhry) MANJINDER Pena Service: Emergency Medicine Author Type: Nurse Practitioner Type: ED Triage Notes Filed: 05/22/2017 5:04 PM Note Text: ED INTAKE NOTE Patient Name: Delma Barton Service Date: 05/22/17 BRIEF HPI: Provider in triage. Patient is 22-year-old female with a reddened area on the lateral left breast/nipple area. Patient states that she was bleeding from her left nipple upon waking this morning. Patient reports pain in left breast area. Patient denies dizziness, any known injury or trauma, chest pain, abdominal pain, nausea vomiting, consultation or diarrhea. BRIEF EXAM: Awake and Alert RRR CTAB Abd soft/NT/ND; no rebound/guarding YU Left breast 3 cm redness INTAKE WORKUP: Plan deferred SIGNATURE: Johnny Pena CNP ED NOTE Observed: 05/22/2017 Status: COMPLETED Source: [place] 4:29 PM [facility] REPOSITORY HNO ID: [id number] Author: Ivory SloanRnMary Arnold RN Service: Emergency Medicine Author Type: Registered Nurse Type: ED Notes Filed: 05/22/2017 4:29 PM Note Text: Pt has a lump on left breast. Made appt with , but this am found blood in bra. CR HAND COMPLETE 3+ Observed: 04/30/2017 Status: F Source: [employer] LEFT 2:42 PM SYSTEM REPOSITORY Patient Name: DELMA BARTON Diagnostic Radiology Exam Date/Time 04/30/2017 14:32:46 EST Exam CR Hand Complete 3+ Views Left Ordering Physician JOANN RUSHING RYAN Accession Number [id number] CPT4 Codes 42452 () Reason For Exam pain Report EXAMINATION: Left hand: Three views. COMPARISON: None. REASON FOR STUDY: Pain. FINDINGS: Osseous structures appear intact and anatomically aligned. No abnormal erosion, periosteal reaction or sclerosis is identified. Soft tissues appear normal. CONCLUSION(S): No evidence of acute bone injury or malalignment. Report Dictated on Final Dictating Physician: MD GOFF B NELSON Signed Date and Time: 04/30/2017 2:43 pm Signed by: MD GOFF B NELSON Transcribed Date and Time: 04/30/2017 2:44 ALLERGIES ALLERGIES DATE TYPE / CODE NAME / CODE REACTION SEVERITY SOURCE Drug NO KNOWN [facility] Class/[id number](SNO ALLERGIES Clinic Other MED CT) [place] Rep[facility] NG/[id number](SNOMED NO KNOWN [facility]) ALLERGIES [facility] Repository Miscellaneous NO KNOWN [place] Allergy/[id number](S ALLERGIES [facility] NOM[facility] Hospital Repository ENCOUNTERS ENCOUNTERS ADMIT/DISCHARGE ACCOUNT NUMBER ADMITTING ENCOUNTER LOCATION SOURCE CLASS 04/26/2018 [id number] Ambulatory [facility] ding:LABSPEC Repository 04/26/2018/04/26/20 [id number] Ambulatory BMSBuilding: [address] Repository 04/09/2018 [id number] Ambulatory [facility] ding:LAB.FUT Repository URE 11/15/2017/11/16/19 [id number] Ambulatory Building:[address] Repository 11/11/2017 [id number] Emergency BuildinA [facility] EDRoom: 2A System 444Bed: Repository [id number] 07/19/2017 [id number] Emergency BuildinA [facility] EDRoom: 2A System 444Bed: Repository [id number] 06/21/2017 [id number] Emergency BuildinB [facility] EDRoom: System [id number]: Repository [id number] 05/31/2017 [id number] Ambulatory [facility] ding:USHP Repository 05/22/2017/05/22/19 [id number] Emergency [address] Other [place] Repository 05/22/2017/05/22/19 [id number] Emergency [address] MEDICAL Repository CENTERildi ng:AKEDRoom: RWBed: 20 05/21/2017/05/21/19 [id number] Ambulatory Building:[address] Repository 04/30/2017 [id number] Amb[address] [place] [address] EDRoom: System 444Bed: Repository [id number] PAYERS PAYERS ENCOUNTER GUARANTOR PAYER SUBSCRIBER SOURCE 04/26/2018 DELMA Charlie PIETERJosueMicheal Primary BILL BUCYDOB: [place] Insurance:[facility] [id number] [place], [place] CAREPolicy Number: Hospital [address]Pdl: (330) [id number] Repository [phone] (HP) Date:4762-51-58XR [address] [place] [address]XV: 04/26/2018 Secondary NOT GIVENUNK Michelle Insurance:SELF PAY [facility] Number: Effective Repository Date:2018-04-26 04/26/2018 DELMA STAPLETONJosueMicheal Primary BILL BUCYDOB: [place] TANG Insurance:[facility] [id number] [place] CAREPolicy Number: Hospital [address]Rka: (330) [id number] Repository [phone] () Date:6467-71-77BS [address]OX [facility] [place] [address]PQ: 04/26/2018 Secondary NOT GIVENUNK Michelle Insurance:SELF PAY [facility] Number: Effective Repository Date:2018-04-26 04/09/2018 DELMA STAPLETONJosueMicheal Primary BILL BUCYDOB: [place] Insurance:[facility] [id number] [place] CAREPolicy Number: Hospital [id number]: (330) [id number] Repository [phone] () Date:1250-57-00DS [address] [place] [place] [address]EJ: 04/09/2018 Secondary NOT GIVENUNK [place] Insurance:SELF PAY [facility] Number: Effective Repository Date:2018-04-09 11/15/2017 DELMA KRISTIE Primary DELMA [facility] BUCYDOB: Insurance:SUMMACAREPo BUCYDOB: Hospital licy Number: [id number] Repository [place] [id number] [place], [place] Date: [place], [place] [address]Sjb: [phone] (HP) 11/15/2017 Secondary DELMA [facility] Insurance:SUMMACAREPo BUCYDOB: Hospital licy Number: [id number] Repository [id number] [place] Date: [place] [address] 11/11/2017 Delma Guerra Primary [facility] BucyDOB: Insurance:SummaCarePo BucyDOB: System licy Number: [id number] Repository [place] Effective Date: [place], [place] [address]Plz: (HP) 07/19/2017 Delma Guerra Primary [facility] BucyDOB: Insurance:SummaCarePo BucyDOB: System licy Number: [id number] Repository [place] Effective Date: [place], [place] [address]Ywt: (HP) 06/21/2017 Delma Guerra Primary [facility] BucyDOB: Insurance:SummaCarePo BucyDOB: System licy Number: [id number] [facility] Effective Date: [place], [place] [address]Tbf: (HP) 05/31/2017 DELMA [place] Primary BILL BUCYDOB: [place] Insurance:SUMMA [id number] [facility] Number: Hospital [address]Zyr: (808) [id number] Repository [phone] (HP) Date:5469-63-42MH [address] [place] [address]ZF: 05/31/2017 Secondary NOT GIVENUNK [place] Insurance:SELF PAY [facility] Number: Effective Repository Date:2017-05-25 05/22/2017 DELMA Guerra Primary Insurance:SC BILL BUCYDOB: [facility] BUCYDOB: PREMI[facility] PPOPolicy [id number] [facility] Number: Repository [place] [id number] [place], [place] Date: [address]Pzo: (HP) 05/21/2017 DELMA KRISTIE Primary [facility]MA [facility] BUCYDOB: Insurance:SUMMACAREPo BUCYDOB: Hospital licy Number: [id number] Repository [place] [id number] [place], [place] Date: [place], [place] [address]Jeh: [phone] (HP) 05/21/2017 Secondary DELMA [facility] Insurance:SUMMACAREPo BUCYDOB: Hospital licy Number: [id number] Repository [id number] [place] Date: [place] [address] 04/30/2017 Delma Guerra Primary [facility] BucyDOB: Insurance:SummaCarePo BucyDOB: System licy Number: [id number] Repository [place] Effective Date: [place], [place] [address]Aak: (HP)
== END ==
PROVIDERS: Nurse Practitioner Women's Health; Family Provider Pediatrics; PCP Pediatrics; Referring Provider Obstetrics & Gynecology; Visit Provider Obstetrics & Gynecology
DX: N91.2 Amenorrhea, unspecified (principal)
CPT/HCPCS: 84702

== ENCOUNTER → 2018-04-26 18:46 | Outpatient (CLI) | payer OTHER, SELFPAY ==
[2018-04-26 21:41] LABS: Chlamydia Trachomatis by PCR Negative (Negative); Neisserai gonorrhoeae by PCR Negative (Negative); Probe Check PASS; Sample Adequacy Control PASS; Specimen Processing Control PASS
--- OUTSIDE RECORDS SUMMARY | 2018-07-29 06:08 | XMS RPT_ITS ---
:1995 Author Organization [place] Support Name Relationship Address Phone GEORGIE BARTON Unavailable [address] + [address] [facility] [employer] Unavailable [address] + [place] [address] BUCY, GEORGIE Unavailable [address] + [address] [employer] [employer] Unavailable [address] + [place] [address] BUCY, GEORGIE Unavailable [address] + [address] [facility] [employer] Unavailable [address] + [place] [address] BUCY, GEORGIE Unavailable [address] + [address] [facility] [employer] Unavailable [address] + [place] [address] Bucy, Georgie Unavailable Unavailable + BUCY, GEORGIE Unavailable [address] + [address] [facility] [employer] Unavailable [address] + [place] [address] BUCY, GEORGIE Unavailable [address] + [address] [facility] [employer] Unavailable [address] + [place] [address] BUCY, GEORGIE Unavailable [address] + [address] [facility] [employer] Unavailable [address] + [place] [address] GEORGIE, BUCY Unavailable [address] + [place] [address] BILL, BUCY Unavailable [address] + [place] [address] Bucy, Georgie Unavailable Unavailable + Bucy, Georgie Unavailable Unavailable + Bucy, Georgie Unavailable Unavailable + Care Team Providers Name Role Phone DEORAS, SHIVANI S Attending Unavailable REFERRED, SELF Referring Unavailable DEORAS, SHIVANI S Primary Care Unavailable Gardenia Villafana Attending Unavailable Deoras, Shivani Referring Unavailable Deoras, Shivani Primary Care Unavailable Deoras, Shviani Referring Unavailable Deoras, Shivani Primary Care Unavailable UNKNOWN, PROVIDER Attending Unavailable Deoras, Shivani Referring Unavailable Deoras, Shivani Primary Care Unavailable Jass Scott Attending Unavailable PROVIDER, UNKNOWN Attending Unavailable Deoras, Shivani Referring Unavailable Deoras, Shivani Primary Care Unavailable Sourav, Monique Attending Unavailable Deoras, Shivani Primary Care Unavailable [place], Monique Referring Unavailable SantillanPatricia Attending Unavailable Sourav, Monique Attending Unavailable Deoras, Shivani Primary Care Unavailable Christina Kumar Attending Unavailable Deoras, Shivani Primary Care Unavailable Marcanthony Christina Referring Unavailable Sourav, Monique Attending Unavailable [place], Monique Referring Unavailable Deoras, Shivani Primary Care Unavailable Sourav, Monique Attending Unavailable Deoras, Shivani Referring Unavailable Sourav, Monique Attending Unavailable Deoras, Shivani Referring Unavailable PROBLEMS PROBLEMS DATE TYPE CONDITION / CODE ATTENDING STATUS SOURCE 05/24/2018 Unknown N39.0 - Urinary Sourav, Active [place] tract infection, [facility] site not specified / Hospital N39.0(ICD-10) Repository 05/24/2018 Unknown N89.8 - Other [place], Active [place] specified [facility] noninflammatory Hospital disorders of vagina Repository / N89.8(ICD-10) 04/29/2018 Admitting Mild hyperemesis Unknown Active [facility] Diagnosis gravidarum / System O21.0(ICD-10) Repository 04/29/2018 Admitting Less than 8 weeks Unknown Active [facility] Diagnosis gestation of System / Repository Z3A.01(ICD-10) 04/29/2018 Admitting Personal history of Unknown Active [facility] Diagnosis other diseases of System the circulatory Repository system / Z86.79(ICD-10) 04/29/2018 Admitting Nausea / Unknown Active [facility] Diagnosis R11.0(ICD-10) System Repository 04/27/2018 Unknown Z34.90 - Encounter Sourav, Active [place] for supervision of [facility] normal , Hospital unspecified, Repository unspecified trimester / Z34.90(ICD-10) 04/26/2018 Unknown Z34.01 - Encounter [place], Active [place] for supervision of [facility] normal first Hospital , first Repository trimester / Z34.01(ICD-10) 04/26/2018 Unknown Z3A.01 - Less than 8 Sourav, Active [place] weeks gestation of [facility] / Hospital Z3A.01(ICD-10) Repository 04/11/2018 Unknown N91.2 - Amenorrhea, Marcanthony, Active [place] unspecified / [facility] N91.2(ICD-10) Hospital Repository 11/11/2017 Admitting Pneumonia, Jass Scott Active [facility] Diagnosis unspecified organism System / J18.9(ICD-10) Repository 11/11/2017 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 manager (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) Jass Scott Active [facility] Diagnosis use of non-steroidal System non-inflam (NSAID) / Repository Z79.1(ICD-10) 11/11/2017 Admitting Pleurodynia / Jass Scott Active [facility] Diagnosis R07.81(ICD-10) System Repository 07/19/2017 Admitting Cardiac murmur, Unknown Active [facility] Diagnosis unspecified / System R01.1(ICD-10) Repository 07/19/2017 Admitting Contusion of lower Unknown Active [facility] Diagnosis back and pelvis, System initial encounter / Repository S30.0XXA(ICD-10) 07/19/2017 Admitting Unspecified injury Unknown Active [facility] Diagnosis of head, initial System encounter / Repository S09.90XA(ICD-10) 07/19/2017 Admitting Sprain of Unknown Active [facility] Diagnosis unspecified ligament System of left ankle, init Repository encntr / S93.402A(ICD-10) 07/19/2017 Admitting Sprain of Unknown Active [facility] Diagnosis unspecified site of System left knee, initial Repository encounter / S83.92XA(ICD-10) 07/19/2017 Admitting Fall (on) (from) Unknown Active [facility] Diagnosis other stairs and System steps, initial Repository encounter / W10.8XXA(ICD-10) 07/19/2017 Admitting Pain in unspecified Unknown Active [facility] Diagnosis ankle / System M25.579(ICD-10) Repository 06/21/2017 Admitting Urinary tract [place], Active [facility] Diagnosis infection, site not [place] System specified / Repository N39.0(ICD-10) 06/21/2017 Admitting Rash and other [place], Active [facility] Diagnosis nonspecific skin [place] System eruption / Repository R21(ICD-10) PROCEDURES PROCEDURES No Procedure Records FoundRESULTS RESULTS CBC W/DIFF, AUTOMATED Collected: 06/01/2018 Status: F Source: [place] 2:19 PM [facility] HOSPITAL REPOSITORY TYPE CODE TESTS RESULT OUT OF RANGE REFERENCE UNITS LAB L100.1000 4.4-11.0 K/mm3 Normal WBC 4.5 LAB L100.1200 4.2-5.4 M/mm3 Low RBC 3.93 LAB L100.1300 12.0-15.0 g/dl Low HGB 11.7 LAB L100.1400 37-47 % Low HCT 33.5 LAB L100.1500 81-99 fL Normal MCV 85.2 LAB L100.1600 27.0-32.0 pg Normal MCH 29.8 LAB L100.1700 32-36 g/gl Normal MCHC 34.9 LAB L100.1810 11.6-14.6 % Normal RDW CV 12.9 LAB L100.1820 35.1-43.9 fl Normal RDW SD 39.8 LAB L100.1900 150-450 K/mm3 Normal PLT 163 LAB L100.2000 6.2-12.0 fl Normal MPV 11.0 LAB L100.2100 47-70 % Normal NEUT% 63.7 LAB L100.2200 19-41 % Normal LY% 27.0 LAB L100.2300 0-10 % Normal MONO% 7.1 LAB L100.2400 0-5 % Normal EO% 1.8 LAB L100.2500 0-1 % Normal BASO% 0.2 LAB L100.2550 0.0-0.9 % Normal IM GRAN % 0.200 Result Comment: IG% - Immature Granulocytes (promyelocytes, myelocytes and metamyelocytes) > 1% indicates that a LEFT SHIFT is Present. LAB L100.2620 2.0-7.7 X10 3/uL Normal Absolute Neut 2.9 LAB L100.2720 0.83-4.51 X10 3/ul Normal Absolute Lymph 1.21 Performed By: #### L100.0100 #### [facility] [address] [place], [place], [address] TYPE AND SCREEN Collected: 06/01/2018 Status: F Source: [place] 2:19 PM [facility] REPOSITORY Order Comment: Reason for Type AND Screen/Red Cells: TYPE CODE TESTS RESULT OUT OF RANGE REFERENCE UNITS LAB B10.0800 O Normal BLOOD TYPE GEL POSITIVE LAB B100.4000 Normal Antibody NEGATIVE Screen Performed By: #### B101.7450 #### [facility] [address] [place], [address] RUBELLA IGG Collected: 06/01/2018 Status: F Source: [place] 2:19 PM [facility] REPOSITORY TYPE CODE TESTS RESULT OUT OF RANGE REFERENCE UNITS LAB L509.4000 IU/mL Normal Rubella IgG 91.6 Result Comment: Antibody results Interpretation of Immune Status < 5 IU/ml Presumed Non-immune 5 - < 10 IU/ml Equivocal > or = 10 IU/ml Presumed Immune Performed By: #### L509.4000, L3890.6005 #### [facility] [address] [place], [address] HIV - [facility] Collected: 06/01/2018 Status: F Source: [place] 2:19 PM [facility] REPOSITORY TYPE CODE TESTS RESULT OUT OF RANGE REFERENCE UNITS LAB L3890.6005 Nonreactive Normal HIV - [facility] Non-Reactive Performed By: #### L509.4000, L3890.6005 #### [facility] [address] [place], [address] Observed: 05/24/2018 Status: F Source: [place] CULTURE, GENITAL 5:39 PM [facility] COMPREHENSIVE REPOSITORY Reason for Exam: pelvic pain Gram Stain Score = 1 Interpretation: 0-3 Normal, 4-6 Intermediate, 7-10 Positive BV Gram Stain 4+ Gram positive rods Rare Gram negative rods No Gram negative diplococci No Yeast Like Organisms Gent Cult Comp Normal vaginal geo isolated. No yeast, Gardnerella, Neisseria or beta-hemolytic Streptococcus isolated. Performed By: #### M100.1599 #### [facility] [address] [place], [address] URINALYSIS, ROUTINE Collected: 05/24/2018 Status: F Source: [place]HELLE (DIPSTICK) 2:55 PM [facility] REPOSITORY Order Comment: How was Urine Obtained? Urine, Random TYPE CODE TESTS RESULT OUT OF RANGE REFERENCE UNITS LAB L400.3000 Yellow COLOR Normal Yellow LAB L400.3050 Clear Normal CLARITY Sl. Cloudy LAB L400.3200 Normal mg/dl Normal GLUCOSE, UR Normal LAB L400.3300 Negative mg/dL Normal BILIRUBIN URINE Negative LAB L400.3400 Negative mg/dl Normal KETONE UR Negative LAB L400.3465 1.002-1.030 Normal SP.GR. DIPSTX 1.015 LAB L400.3550 5.0 - 8.0 pH UR Normal 6.5 LAB L400.3600 Negative mg/dl High PROT 15 DIPSTX LAB L400.3700 Normal mg/dl Normal UROBILI Normal LAB L400.3750 Negative Normal NITRITE UR Negative LAB L400.3780 Negative /ul Normal OCCULT BLOOD-UR Negative LAB L400.3800 Negative /ul High LEUK 25 ESTERASE Performed By: #### L400.2010 #### [facility] [address] 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 Smoking Status: Never smoker alcohol intake: never substance use type: does not use seatbelt use: always do you feel safe at home: Yes Pregancy History 1 Elective abortions Hx Para Spontaneous abortions HPI ABD pain ?UTI: Details: DELMA BARTON is a 23 year old who presents for routine OB visit. OB Visit BEV Calculator Estimated Delivery Date 12/12/18 Based on Ultrasound Date 04/26/18 Current WG 11w 1d Number 1 Expected Delivery Route/Plan Specific [...] v te GA G Effac lucose ed 04/26/18 136 7w 1d Visit Notes Visit Date: 05/24/18 Work in for lower right pelvic pain and increased vag discharge. No VB, LOF ARIANE Cobb on 05/24/18 Visit Date: 04/26/18 No visit notes to display Diagnostics Diagnostics Labs Chlam trachomat DNA PCR Negative (Negative) 04/26/18 N.gonorrhoeae DNA (PCR) Negative (Negative) 04/26/18 Details: HIV: Urine Culture: Sequential Screen: NIPT Screen: Exam External Female Exam: normal external appearance, normal appearance of the urethra Urethra: normal appearance of the urethra Speculum Exam - Vagina: normal appearance of the vagina, normal vaginal discharge Speculum Exam - Cervix: normal appearance of the cervix (closed) Results BMS[facility] Office Urine Color ANNE Last Edit by Aarti Lira on 05/24/18 14:04 Office Urine Clarity Cloudy Last Edit by Aarti Lira on 05/24/18 14:04 Assessment AND Plan Problems 1. Encounter for supervision of normal first in first trimester Z34.01 Grav 1 BEV 12/12/18 BF: Amy 2. Less than 8 weeks gestation of Z3A.01 Plans NIPT 3. Vaginal discharge N89.8 4. Pelvic pain affecting in first trimester, antepartum O26.891; R10.2 Plan Orders placed: MARCELO BV, comp vaginal culture, urine culture:call only if positive NIPT due next week. Will want gender on order Pain may be round ligament discomfort Brief US confirmed active IUP with FHT Reviewed of labor precautions, movement/kick counts ACOG trimester education reviewed and updated See problem list details for updated plan of care Gestational age appropriate handout given RTO: 4 weeks Orders Orders: Coding Level of Care Code OB Routine Diagnoses Encounter for supervision of normal first in first trimester Z34.01 Trimester: first trimester Less than 8 weeks gestation of Z3A.01 Weeks of gestation: less than 8 weeks Vaginal discharge N89.8 Pelvic pain affecting in first trimester, antepartum O26.891; R10.2 05/24/18 5485 <Electronically signed by Monique THAKKAR> Date Monique THAKKAR Cosigner Signature: Date (if applicable) CC: COMP METABOLIC PANEL Collected: 04/29/2018 Status: F Source: [facility] [email or web address] 3:40 AM SYSTEM REPOSITORY TYPE CODE TESTS RESULT OUT OF RANGE REFERENCE UNITS LAB NA3 135-145 mmol/L Normal Sodium 137 Result Comment: NOTE: New Sodium Reference Range effective 2018 @ 10:00 LAB K3 3.5-5.1 mmol/L Normal Potassium 3.6 LAB CL3 98-107 mmol/L Normal Chloride 104 LAB CO23 22-30 mmol/L Normal Carbon Dioxide 22 LAB ANIN3 NA Anion Gap 12 LAB GLUC3 70-100 mg/dL High Glucose 102 LAB BUN3 7-20 mg/dL Normal Urea Nitrogen 11 LAB CRET3 0.52-1.25 mg/dL Normal Creatinine 0.69 LAB GF3BR >60 mL/min eGFR > 60.0 LAB GF3WR >60 mL/min eGFR OTHER > 60.0 Result Comment: Source- MDRD equation with creatinine calibration to IDMS(NKDEP) eGFR not recommended for drug dose adjustment LAB CA3 8.4-10.4 mg/dL Calcium Normal 9.2 LAB ALB3 3.5-5.0 g/dL Albumin, Serum Normal 4.5 LAB TP3 6.3-8.2 g/dL Total Protein Normal 7.6 LAB BILT3 0.2-1.3 mg/dL Normal Bilirubin,Total 0.7 LAB ALKP3 38-126 U/L Alkaline Normal Phosphatase 52 LAB ALT3 13-69 U/L ALT (SGPT) Normal 42 LAB AST3 15-46 U/L AST (SGOT) Normal 34 Performed By: #### CMP3 #### [facility] [address] [place] [address] CT/NG WC BY PCR Collected: 04/26/2018 Status: F Source: [place] 6:48 PM [facility] REPOSITORY TYPE CODE TESTS RESULT OUT OF RANGE REFERENCE UNITS LAB L8200.2100 Negative Normal Chlam Negative Trac PCR LAB L8200.2200 Negative Normal NG by Negative PCR Performed By: #### L8200.2000 #### [facility] [address] [place], [place], [address] Observed: 04/26/2018 Status: F Source: [place] CULTURE, URINE 6:48 PM [facility] REPOSITORY Urine Culture Culture exhibits no growth. Performed By: #### M100.0650 #### 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 [place] [address] OFFICE VISIT Date of Service: 04/26/18 MR#: [id number] Acct: [id number] Name: DELMA BARTON Rep #: [id number] : 1995 Provider: JOANN Benjamin Age/Sex: 22/F [place] [facility] [place]: Signed Intake Intake Visit Reasons: NOB [...] of Hepatitis: No, Recent travel outside of [place]: No, Concern for Hep exposure: No, Varicella immune: Yes (had vaccine) Medical History Medical History: Negative: Diabetes, Hypertension, Heart disease, Auto-immune disorder, Kidney disease/UTI, Neurologic/epilepsy, Psychiatric, Depression/ depression, Hepatitis/liver disease, Varicosities/phlebitis, Thyroid dysfunction, Trauma/domestic violence, History of blood transfusions, D (Rh) Sensitized, Pulmonary (e.g.,TB,Asthma), Seasonal allergies, Drug/latex allergies/reactions, Breast, Power Mule Operator surgery, Operations/hospitalizations, Anesthetic complications, History of abnormal [...] TITER QUANT., Collected: 04/09/2018 Status: F Source: [place] SER[place] 12:11 PM [facility] REPOSITORY Order Comment: PER REQ, PLEASE CALL DR UKMAR WITH RESULTS: [phone] TYPE CODE TESTS RESULT OUT OF RANGE REFERENCE UNITS LAB L700.8000 <9 non-preg mIU/mL High HCG 1918 QUANT. Result Comment: Critical Result(s) Called at: 13:02:31 04/09/2018 by: Charlie Fuentes to Performed By: #### L700.8000 #### [facility] [address] [place], [address] CTA CHEST W/ + W/O Observed: 11/11/2017 Status: F Source: e994 CONTRAST 2:53 PM SYSTEM REPOSITORY Patient Name: DELMA BARTON CT Exam Date/Time 11/11/2017 14:33:39 EDT Exam CTA Chest w/ + w/o Contrast Ordering Physician MANJINDER RAMÍREZ DANIEL M Accession Number [id number] CPT4 Codes 14792 (), Q9967 () Reason For Exam dyspnea, chest pain Report Reasons for examination: Cough chest pain. CT scan of the chest were performed with bolus contrast and high resolution scans for CT pulmonary angiographic study, with images post-processed by myself on [employer] workstation, with 3D - volume rendered CT [...] CHEST PA/LAT Observed: 11/11/2017 Status: F Source: e994 1:31 PM SYSTEM REPOSITORY Patient Name: DELMA BARTON Diagnostic Radiology Exam Date/Time 11/11/2017 13:16:43 EDT Exam CR Chest PA/LAT Ordering Physician MANJINDER RAMÍREZ DANIEL M Accession Number [id number] CPT4 Codes 38282 () Reason For Exam cough, chest pain [...] W/ AUTODIFF Collected: 11/11/2017 Status: F Source: e994 12:31 PM SYSTEM REPOSITORY TYPE CODE TESTS [...] #### HEMDF, BMP3, DDI2, TROPN, QWAL #### [facility] [address] [place] [address] BASIC METABOLIC PANEL Collected: 11/11/2017 Status: F Source: e994 12:31 PM SYSTEM REPOSITORY TYPE CODE TESTS [...] mg/dL Normal Calcium 9.4 Performed By: #### HEMODALYS, BMP3, DDI2, TROPN, QWAL #### [facility] [address] [place] [address] D-DIMER, INNOVANCE Collected: 11/11/2017 Status: F Source: e994 12:31 PM SYSTEM REPOSITORY TYPE CODE TESTS [...] #### HEMDF, BMP3, DDI2, TROPN, QWAL #### [facility] [address] [place] [address] TROPONIN I Collected: 11/11/2017 Status: F Source: e994 12:31 PM SYSTEM REPOSITORY TYPE CODE TESTS RESULT OUT OF RANGE REFERENCE UNITS LAB TROP4 0.000-0.034 ng/mL Normal Troponin I < 0.012 Result Comment: 0.046 - 0.400 = Indeterminate > 0.400 = Consider Myocardial Injury Performed By: #### HEMDF, BMP3, DDI2, TROPN, QWAL #### [facility] [address] [place] [address] HCG QUAL PREG Collected: 11/11/2017 Status: F Source: e994 12:31 PM SYSTEM REPOSITORY TYPE CODE TESTS RESULT OUT OF RANGE REFERENCE UNITS LAB QWLC m[IU]/mL Normal hCG NEGATIVE Qual Preg Result Comment: REF RANGE: Negative .... < 3 Questionable Rpt 48-72 Hr Positive ..... > 10 Performed By: #### HEMDF, BMP3, DDI2, TROPN, QWAL #### [facility] [address] [place] [address] CR ANKLE 3+ VIEWS Observed: 07/19/2017 Status: F Source: [place] 1:14 PM SYSTEM REPOSITORY Patient Name: DELMA BARTON Diagnostic Radiology Exam Date/Time 07/19/2017 13:24:48 EDT Exam CR Ankle 3+ Views Left Ordering Physician MANJINDER RAÍMREZ DANIEL M Accession Number [id number] CPT4 Codes 46411 () Reason For Exam pain Report LEFT [...] 3 VIEWS Observed: 07/19/2017 Status: F Source: [place] 1:13 PM SYSTEM REPOSITORY Patient Name: DELMA BARTON Diagnostic Radiology Exam Date/Time 07/19/2017 13:24:48 EDT Exam CR Knee 3 Views Left Ordering Physician MANJINDER RAMÍREZ DANIEL M Accession Number [id number] CPT4 Codes 33241 () Reason For Exam pain/injury Report Left [...] 07/19/2017 1:24 Observed: 06/21/2017 Status: F [facility] AND GC PCR 10:55 PM SYSTEM REPOSITORY PANEL Specimen Source Comment:Cervix [facility] Patient name: DELMA BARTON M.R.N.: [id number] : 1995 Age: 22 Sex: F Ord. Physician: GARDENIA VILLAFANA Location: [place] [address] Copy to: GARDENIA VILLAFANA DISCHARGED: 06/22/17 Adm. Date: 06/21/17 MICROBIOLOGY ORDER#: [id number] COLLECTED: 06/21/17 22:55 SOURCE: Cervix RECEIVED: 06/21/17 23:01 OE C O M M E N T S Specimen Source Comment:Cervix Chlamydia trachomatis PCR FINAL 06/22/17 12:12 06/22/17 NOT Detected Chlamydia trachomatis Nucleic Acid NOT Detected by DNA Amplification using the [employer] System. Culture is the only recommended test in medical-legal cases such as suspected child abuse or molestation. Neisseria gonorrhoeae PCR FINAL 06/22/17 12:12 06/22/17 NOT Detected Neisseria gonorrhoeae Nucleic Acid NOT Detected by DNA Amplification using the [employer] System. Culture is the only recommended test in medical-legal cases such as suspected child abuse or molestation. Performed By: #### CTNGP #### [facility] [address] [place] [address] Observed: 06/21/2017 Status: F Source: [facility] VAGINAL PATHOGENS DNA 10:55 PM SYSTEM REPOSITORY - AFFIRM [facility] Patient name: DELMA BARTON Charlie MJericaR.N.: [id number] : 1995 Age: 22 Sex: F Ord. Physician: GARDENIA VILLAFANA Location: Copy to: GARDENIA VILLAFANA DISCHARGED: 06/22/17 Adm. Date: 06/21/17 MICROBIOLOGY ORDER#: [id number] COLLECTED: 06/21/17 22:55 SOURCE: Vagina (Vagina) RECEIVED: 06/21/17 23:01 Danni - Vaginal Pathogens DNA FINAL 06/23/17 07:08 06/23/17 POSITIVE Gardnerella - Vaginal Pathogens DNA FINAL 06/23/17 07:08 06/23/17 POSITIVE Trichomonas - Vaginal Pathogens DNA FINAL 06/23/17 07:08 06/23/17 Negative Performed By: #### AFIRM #### [place] [address] Observed: 06/21/2017 Status: F Source: [facility] CULTURE URINE 10:55 PM SYSTEM REPOSITORY Specimen Source Comment:Urine, clean catch [facility] Patient name: DELMA BARTON Charlie iRchR.N.: [id number] : 1995 Age: 22 Sex: F Ord. Physician: GARDENIA VILLAFANA Location: Copy to: GARDENIA VILLAFANA DISCHARGED: 06/22/17 Adm. Date: 06/21/17 MICROBIOLOGY ORDER#: [id number] COLLECTED: 06/21/17 22:55 SOURCE: Urine RECEIVED: 06/21/17 23:09 OE C O M M E N T S Specimen Source Comment:Urine, clean catch CULTURE URINE FINAL 06/24/17 08:17 06/23/17 Normal urogenital geo present. <10,000 CFU/ml Streptococcus agalactiae (Group B) Susceptibility testing not routinely performed. Group B streptococcus is universally susceptible to beta-lactam antibiotics and vancomycin. If patient is beta-lactam allergic, please call [facility] Microbiology lab ([phone]) within 2 days to request susceptibility testing. If isolated from urine, Group B strep may indicate colonization or infection. Performed By: #### C/UR #### [address] [address] ALLERGIES ALLERGIES DATE TYPE / CODE NAME / CODE REACTION SEVERITY SOURCE 05/24/2018 Drug No Known Unknown [place] Allergy/[id number](S Allergies/F[address] [facility]) [address](RXNORM) Hospital Repository Miscellaneous NO KNOWN [place] Allergy/683923531(S ALLERGIES [facility] Hospital Repository ENCOUNTERS ENCOUNTERS ADMIT/DISCHARGE ACCOUNT NUMBER ADMITTING ENCOUNTER LOCATION SOURCE CLASS 06/01/2018 [id number] [facility]ulatory [facility] ding:PAVLAB Repository 05/27/2018 [id number] Ambulatory BMSBuilding: [place] BMS.[facility] Repository 05/24/2018 [id number] [facility] ding:LABSPEC Repository 05/24/2018/05/24/19 [id number] Ambulatory BMSBuilding: Michelle [address] [facility] Repository 04/29/2018 [id number] Emergency Buildin[address] [place] [address] EDRoom: System [id number]: Repository [id number] 04/26/2018 [id number] [facility] ding:LABSPEC Repository 04/26/2018/04/26/20 [id number] Ambulatory BMSBuilding: Michelle 18 [facility] Repository 04/09/2018 [id number] [facility] ding:LAB.FUT Repository URE 11/15/2017/07/09 [id number] Ambulatory Building:[facility] [address] Repository 11/11/2017 [id number] Emergency BuildinA [facility] EDRoom: 2A System 444Bed: Repository [id number] 07/19/2017 [id number] Emergency BuildinA [facility] EDRoom: 2A System 444Bed: Repository [id number] 06/21/2017 [id number] Emergency BuildinB [facility] EDRoom: System [id number]: Repository [id number] PAYERS PAYERS ENCOUNTER GUARANTOR PAYER SUBSCRIBER SOURCE 06/01/2018 DELMA Guerra [id number] Primary BILL BUCYDOB: [place] TANG Insurance:ANTHEMPolic [id number] [place] Number: [facility] [id number]: (330) [id number] Repository [phone] () Date:4744-88-47ME [address] [place] [address]66[address]UF: 06/01/2018 Secondary NOT GIVENUNK Michelle Insurance:SELF PAY [facility] Hospital Number: Effective Repository Date:2018-06-01 05/27/2018 DELMA Guerra [id number] Primary BILL BUCYDOB: Michelle TANG Insurance:ANTHEMPolic [id number] [place] Number: [facility] [id number]: (330) [id number] Repository [phone] () Date:1575-41-94ZB [address] [place] [address] [id number]: 05/27/2018 Secondary NOT GIVENUNK [place] Insurance:SELF PAY [facility] Hospital Number: Effective Repository Date:2018-05-27 05/24/2018 DELMA Guerra [id number] Primary BILL BUCYDOB: [place] TANG Insurance:ANTHEMPolic [id number] [place] Number: [facility] [id number]: (330) [id number] Repository [phone] () Date:8073-79-43QO [address], [place] [address]EW: 05/24/2018 Secondary NOT GIVENUNK Michelle Insurance:SELF PAY [facility] Hospital Number: Effective Repository Date:2018-05-24 05/24/2018 DELMARosie BARTON60 Primary BILL BUCYDOB: [place] TANG Insurance:ANTHEMPolic [id number] [place] Number: Hospital [id number]: 330 [id number] Repository [phone] (HP) Date:8521-52-65LE [address], [place] [address]FR: 05/24/2018 Secondary NOT GIVENUNK [place] Insurance:SELF PAY [facility] Number: Effective Repository Date:2018-05-24 04/29/2018 Delma Guerra Primary [facility] [employer] BucyDOB: Insurance:[facility] BucyDOB: System licy Number: [id number] Effective Date: [place], [place] [address]Ijk: (HP) 04/26/2018 DELMA BARTON60 Primary BILL BUCYDOB: [place] TANG Insurance:SUMMA [id number] [place] CAREPolicy Number: Hospital [id number]: (620) [id number] Repository [phone] (HP) Date:2959-92-60XN [address] [place] [id number]: 04/26/2018 Secondary NOT GIVENUNK Michelle Insurance:SELF PAY [facility] Effective Repository Date:2018-04-26 04/26/2018 DLEMA Charlie BARTON60 Primary BILL BUCYDOB: Michelle TANG Insurance:SUMMA [id number] [place] CAREPolicy Number: Hospital [id number]: (028) [id number] Repository [phone] (HP) Date:4750-45-12MO [address] [place] [id number]: 04/26/2018 Secondary NOT GIVENUNK Michelle Insurance:SELF PAY [facility] Number: Effective Repository Date:2018-04-26 04/09/2018 DELMA BARTON60 Primary BILL BUCYDOB: [place] TANG Insurance:SUMMA [id number] [place] CAREPolic Number: Hospital [id number]: (642) [id number] Repository [phone] (HP) Date:0867-76-78ND [address] [phone]: 04/09/2018 Secondary NOT GIVENUNK [place] Insurance:SELF PAY [facility] Number: Effective Repository Date:2018-04-09 11/15/2017 [facility] Primary DELMA KRISTIE [facility] BUCYDOB: Insurance:SUMMACAREPo BUCYDOB: Hospital licy Number: [id number] Repository [place] [id number] [place], [place] Date: [place], [place] [address]Vvu: [phone] (HP) 11/15/2017 Secondary DELMARAJWINDER FLOWERS [facility] Insurance:SUMMACAREPo BUCYDOB: Hospital licy Number: [id number] Repository [id number] [place] Date: [place] [address] 11/11/2017 Delma Guerra Primary [facility] BucyDOB: Insurance:[facility] BucyDOB: System licy Number: [id number] Repository [place] Effective Date: [place], [place] [address]Jfc: (HP) 07/19/2017 Delma Guerra Primary [facility] BucyDOB: Insurance:SummaCarePo BucyDOB: System licy Number: [id number] Repository [place] Effective Date: [place], [place] [address]Ybv: (HP) 06/21/2017 Delma Guerra Primary [facility] BucyDOB: Insurance:SummaCarePo BucyDOB: System licy Number: [id number] Repository [place] Effective Date: [place], [place] [address]Zah: (HP)
== END ==
PROVIDERS: Family Provider Pediatrics; PCP Pediatrics; Referring Provider Nurse Practitioner Women's Health; Visit Provider Nurse Practitioner Women's Health
DX: Z34.90 Encounter for supervision of normal pregnancy, unspecified, unspecified trimester (principal)
CPT/HCPCS: 87086; 87491; 87591

== ENCOUNTER → 2018-05-24 14:40 | Outpatient (CLI) | payer BC, SELFPAY ==
[2018-05-24 14:25] VITALS: BMI 31.1
[2018-05-24 15:03] LABS: Color, Urine Yellow (Yellow); Glucose, Dipstick Normal (Normal); Ketone-Dipstick Negative (Negative); Leukocyte Esterase-Dipstick 25 /ul (Negative); Nitrite-Dipstick Negative (Negative); Occult Blood-Urine Negative /ul (Negative); Protein-Dipstick 15 mg/dl (Negative); Specific Gravity, Urine 1.015 (1.002-1.030); Urine Bilirubin Dipstick Negative (Negative); Urine Clarity Sl. Cloudy (Clear); Urine Urobilinogen Normal (Normal); Urine pH 6.5 (5.0 - 8.0)
== END ==
PROVIDERS: Family Provider Pediatrics; PCP Pediatrics; Referring Provider Nurse Practitioner Women's Health; Visit Provider Nurse Practitioner Women's Health
DX: N39.0 Urinary tract infection, site not specified (principal); N89.8 Other specified noninflammatory disorders of vagina
CPT/HCPCS: 81002; 87070; 87205

== ENCOUNTER → 2018-06-01 13:52 | Outpatient (CLI) | payer BC, SELFPAY ==
[2018-05-24 14:25] VITALS: BMI 31.1
[2018-06-01 14:43] LABS: Absolute Lymphocyte Count 1.21 X10^3/ul (0.83-4.51); Absolute Neutrophil Count 2.9 X10^3/uL (2.0-7.7); Basophil# 0.01 X10^3/uL; Basophil% 0.2 % (0-1); Eosinophil# 0.08 X10^3/uL; Eosinophils% 1.8 % (0-5); Hematocrit 33.5 % (37-47); Hemoglobin 11.7 g/dl (12.0-15.0); Lymphocyte # 1.21 X10^3/ul (4.0); Mean Corp Hgb Conc 34.9 g/gl (32-36); Mean Corpuscular Hgb 29.8 pg (27.0-32.0); Mean Corpuscular Volume 85.2 fL (81-99); Monocyte# 0.32 X10^3/uL; Monocyte% 7.1 % (0-10); Neutrophil # 2.85 X10^3/uL (2.7-7.7); Neutrophil % 63.7 % (47-70); Platelet Count 163 K/mm3 (150-450); RBC Distribution Width CV 12.9 % (11.6-14.6); RBC Distribution Width SD 39.8 fl (35.1-43.9); Red Blood Count 3.93 M/mm3 (4.2-5.4); White Blood Count 4.5 K/mm3 (4.4-11.0)
[2018-06-01 14:46] LABS: POSITIVE COUNT NO; POSITIVE DIFFERENTIAL NO; POSITIVE MORPHOLOGY NO
[2018-06-01 16:01] LABS: HIV - WCH Non-Reactive (Nonreactive); Rubella IgG 91.6 IU/mL
[2018-06-02 10:36] LABS: HEPATITIS B SURFACE AG Negative (Negative)
[2018-06-03 01:11] LABS: Rapid Plasmin Reagin (RPR) NONREACTIVE (NONREACTIVE)
--- OUTSIDE RECORDS SUMMARY | 2018-08-03 13:49 | XMS RPT_ITS ---
:1995 Author Organization [place] Support Name Relationship Address Phone GEORGIE BARTON Unavailable [address] + [address] [employer] Unavailable [address] + [place] [address] BUCY, GEORGIE Unavailable [address] + [address] [employer] Unavailable [address] + [place] [address] BUCY, GEORGIE Unavailable [address] + [address] [employer] DISABIL[employer] Unavailable [address] + [place] [address] BUCY, GEORGIE Unavailable [address] + [address] [employer]OP[employer]AL DISABILIT[employer] Unavailable [address] + [place] [address] Bucy, Georgie Unavailable Unavailable + BUCY, GEORGIE Unavailable [address] + [address] [employer]MENTAL DISABIL[employer] Unavailable [address] + [place] [address] BUCY, GEORGIE Unavailable [address] + [address] [employer]OPMENTAL DISABILIT[employer] Unavailable [address] + [place] [address] BUCY, GEORGIE Unavailable [address] + [address] [employer]MENTAL DISABILITIE Unavailable [address] + [place] [address] GEORGIE, BUCY Unavailable [address] + [place] [address] BILL, BUCY Unavailable [address] + [facility] [place] [address] Bucy, Georgie Unavailable Unavailable + Bucy, Georgie Unavailable Unavailable + Bucy, Georgie Unavailable Unavailable + Care Team Providers Name Role Phone Abrahamleonard Gardenia Attending Unavailable Deoras, Shivani Referring Unavailable Deoras, Shivani Primary Care Unavailable Deoras, Shivani Referring Unavailable Deoras, Shivani Primary Care Unavailable UNKNOWN, PROVIDER Attending Unavailable Deoras, Shivani Referring Unavailable Deoras, Shivani Primary Care Unavailable Jass Scott Attending Unavailable PROVIDER, UNKNOWN Attending Unavailable Deoras, Shivani Referring Unavailable Deoras, Shivani Primary Care Unavailable DEORAS, SHIVANI S Attending Unavailable REFERRED, SELF Referring Unavailable DEORAS, SHIVANI S Primary Care Unavailable Sourav, Monique Attending Unavailable Deoras, Shivani Referring Unavailable Sourav, Monique Attending Unavailable Deoras, Shivani Primary Care Unavailable Sourav, Monique Referring Unavailable Sourav, Monique Attending Unavailable Deoras, Shivani Referring Unavailable Sourav, Monique Attending Unavailable [place], Monique Referring Unavailable Deoras, Shivani Primary Care Unavailable Patricia Santillan Attending Unavailable Sourav, Monique Attending Unavailable Deoras, Shivani Primary Care Unavailable Christina Kumar Attending Unavailable Deoras, Shivani Primary Care Unavailable Christina Kumar Referring Unavailable PROBLEMS PROBLEMS DATE TYPE CONDITION / CODE ATTENDING STATUS SOURCE 05/24/2018 Unknown N39.0 - Urinary Sourav, Active [place] tract infection, [facility] site not specified / Hospital N39.0(ICD-10) Repository 05/24/2018 Unknown N89.8 - Other [place], Active [place] specified [facility] noninflammatory Hospital disorders of vagina Repository / N89.8(ICD-10) 04/29/2018 Admitting Mild hyperemesis Unknown Active [facility] Diagnosis gravidarum / System O21.0(ICD-10) Repository 04/29/2018 Admitting Less than 8 weeks Unknown Active [facility] Diagnosis gestation of System / Repository Z3A.01(ICD-10) 04/29/2018 Admitting Personal history of Unknown Active [facility] Diagnosis other diseases of System the circulatory Repository system / Z86.79(ICD-10) 04/29/2018 Admitting Nausea / Unknown Active [facility] Diagnosis R11.0(ICD-10) System Repository 04/27/2018 Unknown Z34.90 - Encounter Sourav, Active [place] for supervision of [facility] normal , Hospital unspecified, Repository unspecified trimester / Z34.90(ICD-10) 04/26/2018 Unknown Z34.01 - Encounter [place], Active [place] for supervision of [facility] normal first Hospital , first Repository trimester / Z34.01(ICD-10) 04/26/2018 Unknown Z3A.01 - Less than 8 Sourav, Active [place] weeks gestation of [facility] / Hospital Z3A.01(ICD-10) Repository 04/11/2018 Unknown N91.2 - Amenorrhea, Marcanthony, Active [place] unspecified / [facility] N91.2(ICD-10) Hospital Repository 11/11/2017 Admitting Pneumonia, Jass Scott Active [facility] Diagnosis unspecified organism System / J18.9(ICD-10) Repository 11/11/2017 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) Jass Scott Active [facility] Diagnosis use of non-steroidal System non-inflam (NSAID) / Repository Z79.1(ICD-10) 11/11/2017 Admitting Pleurodynia / Jass Scott Active [facility] Diagnosis R07.81(ICD-10) System Repository 07/19/2017 Admitting Cardiac murmur, Unknown Active [facility] Diagnosis unspecified / System R01.1(ICD-10) Repository 07/19/2017 Admitting Contusion of lower Unknown Active [facility] Diagnosis back and pelvis, System initial encounter / Repository S30.0XXA(ICD-10) 07/19/2017 Admitting Unspecified injury Unknown Active [facility] Diagnosis of head, initial System encounter / Repository S09.90XA(ICD-10) 07/19/2017 Admitting Sprain of Unknown Active [facility] Diagnosis unspecified ligament System of left ankle, init Repository encntr / S93.402A(ICD-10) 07/19/2017 Admitting Sprain of Unknown Active [facility] Diagnosis unspecified site of System left knee, initial Repository encounter / S83.92XA(ICD-10) 07/19/2017 Admitting Fall (on) (from) Unknown Active [facility] Diagnosis other stairs and System steps, initial Repository encounter / W10.8XXA(ICD-10) 07/19/2017 Admitting Pain in unspecified Unknown Active [facility] Diagnosis ankle / System M25.579(ICD-10) Repository 06/21/2017 Admitting Urinary tract Jeromin, Active [facility] Diagnosis infection, site not [place] System specified / Repository N39.0(ICD-10) 06/21/2017 Admitting Rash and other Jeromin, Active [facility] Diagnosis nonspecific skin [place] System eruption / Repository R21(ICD-10) PROCEDURES PROCEDURES No Procedure Records FoundRESULTS RESULTS CBC W/DIFF, AUTOMATED Collected: 06/01/2018 Status: F Source: MICHELLE 2:19 PM [facility] RE[facility] TYPE CODE TESTS RESULT OUT [...] Lymph 1.21 Performed By: #### L100.0100 #### [facility] [address] [place], [address] TYPE AND SCREEN Collected: 06/01/2018 Status: F Source: TAFT 2:19 PM [facility] REPOSITORY Order Comment: Reason for Type AND Screen/Red Cells: TYPE CODE TESTS RESULT OUT OF RANGE REFERENCE UNITS LAB B10.0800 O Normal BLOOD TYPE GEL POSITIVE LAB B100.4000 Normal Antibody NEGATIVE Screen Performed By: #### B101.7450 #### [facility] [address], [address] RUBELLA IGG Collected: 06/01/2018 Status: F Source: TAFT 2:19 PM [facility] REPOSITORY TYPE CODE TESTS RESULT OUT OF RANGE REFERENCE UNITS LAB L509.4000 IU/mL Normal Rubella IgG 91.6 Result Comment: Antibody results Interpretation of Immune Status < 5 IU/ml Presumed Non-immune 5 - < 10 IU/ml Equivocal > or = 10 IU/ml Presumed Immune Performed By: #### L509.4000, L3890.6005 #### [facility] [address] [place], [address] HIV - [facility] Collected: 06/01/2018 Status: F Source: TAFT 2:19 PM [facility] REPOSITORY TYPE CODE TESTS RESULT OUT OF RANGE REFERENCE UNITS LAB L3890.6005 Nonreactive Normal HIV - [facility] Non-Reactive Performed By: #### L509.4000, L3890.6005 #### [facility] [address] [place], [address] HEPATITIS B SURFACE Collected: 06/01/2018 Status: F Source: MICHELLE AG 2:19 PM [facility] REPOSITORY TYPE CODE TESTS RESULT OUT OF RANGE REFERENCE UNITS LAB L3100.0400 Negative Normal HB Negative SURF AG Result Comment: Performed at: [facility] [address] [id number] Medicine And Health Service Manager: Hany Florentino PhD, Phone: [phone] Performed By: #### L3100.0390 #### [facility] (refer to report for specific site) refer to report for address and phone number RAPID PLASMIN REAGIN Collected: 06/01/2018 Status: F Source: MICHELLE (RPR) 2:19 PM [facility] REPOSITORY TYPE CODE TESTS RESULT OUT OF REFERENCE UNITS RANGE LAB L700.5000 NONREACTIVE NONREACTIVE Normal RPR Performed By: #### L700.5000 #### [facility] [address] [place], [place], [address] Observed: 05/24/2018 Status: F Source: MICHELLE CULTURE, GENITAL 5:39 PM [facility] COMPREHENSIVE REPOSITORY Reason for Exam: pelvic pain Gram Stain Score = 1 Interpretation: 0-3 Normal, 4-6 Intermediate, 7-10 Positive BV Gram Stain 4+ Gram positive rods Rare Gram negative rods No Gram negative diplococci No Yeast Like Organisms Gent Cult Comp Normal vaginal geo isolated. No yeast, Gardnerella, Neisseria or beta-hemolytic Streptococcus isolated. Performed By: #### M100.1600 #### [facility] [address] [place], [place], [address] URINALYSIS, ROUTINE Collected: 05/24/2018 Status: F Source: MICHELLE (DIPSTICK) 2:55 PM [facility] REPOSITORY Order Comment: How was Urine Obtained? [...] 25 ESTERASE Performed By: #### L400.2010 #### [facility] [address] [place], [address] SPECIAL DELIVERY CLERK OFFICE VISIT Observed: 05/24/2018 Status: F Source: TAFT REPORT 2:25 PM [facility] REPOSITORY [facility] [address] [place] [address] OFFICE VISIT Date of Service: 05/24/18 MR#: [id number] Acct: [id number] Name: DELMA BARTON Rep #: [id number] : 1995 Provider: JOANN Benjamin Age/Sex: 23/F [facility] [facility] Status: Signed Intake Vital Signs05/24/18 Height 5 ft 5 in 05/24/18 Weight: 187 lb 05/24/18 Body Mass Index (BMI) 31.1 05/24/18 Blood Pressure 120/78 Intake Visit Reasons: ABD pain ?UTI Puncher Required: No Is patient in pain?: Yes Allergies No Known Allergies Allergy (Verified 05/24/18 13:47) Medications promethazine 12.5 mg tablet 12.5 mg PO Q6H PRN #60 tab 04/22/18 [Rx Confirmed 05/24/18] Last Menstral Period: 02/25/17 Zika: Zika virus screening: Negative : No PFSH PFSH Surgical History ACL injury tear (Acute) [place] teeth extracted (Acute) Social History number of children: 0 current occupational status: employed current occupation: [employer] Smoking Status: Never [...] in first trimester, antepartum O26.891; R10.2 05/24/18 1425 <Electronically signed by Monique THAKKAR> Date Monique THAKKAR Cosigner Signature: Date (if applicable) CC: COMP METABOLIC PANEL Collected: 04/29/2018 Status: F Source: Strut 3:40 AM SYSTEM REPOSITORY TYPE CODE TESTS [...] Normal 34 Performed By: #### CMP3 #### [facility] [address] [place] [address] CT/NG [facility] BY PCR Collected: 04/26/2018 Status: F Source: TAFT 6:48 PM [facility] REPOSITORY TYPE CODE TESTS RESULT OUT OF RANGE REFERENCE UNITS LAB L8200.2100 Negative Normal Chlam Negative Trac PCR LAB L8200.2200 Negative Normal NG by Negative PCR Performed By: #### L8200.2000 #### [facility] [address] [place], [address] Observed: 04/26/2018 Status: F Source: TAFT CULTURE, URINE 6:48 PM [facility] REPOSITORY Urine Culture Culture exhibits no growth. Performed By: #### M100.0650 #### [facility] [address] [place], [place], [address] SPECIAL DELIVERY CLERK OFFICE VISIT Observed: 04/26/2018 Status: F Source: MICHELLE REPORT 1:19 PM [facility] REPOSITORY [facility] [address] [place] [address] OFFICE VISIT Date of Service: 04/26/18 MR#: [id number] Acct: [id number] Name: DELMA BARTON Rep #: [id number] : 1995 Provider: JOANN Benjamin Age/Sex: 22/F [place] [facility] Status: Signed Intake Intake Visit Reasons: NOB [...] Pulmonary (e.g.,TB,Asthma), Seasonal allergies, Drug/latex allergies/reactions, Breast, Middleware Engineer surgery, Operations/hospitalizations, Anesthetic complications, History of abnormal [...] <Electronically signed by Monique THAKKAR> Date Monique [place] EGG BREAKING MACHINE OPERATOR-C Cosigner Signature: Date (if applicable) CC: HCG TITER QUANT., Collected: 04/09/2018 Status: F Source: TAFT SERUM 12:11 PM [facility] REPOSITORY Order Comment: PER REQ, PLEASE CALL DR KUMAR WITH RESULTS: [phone] TYPE CODE TESTS RESULT OUT OF RANGE REFERENCE UNITS LAB L700.8000 <9 non-preg mIU/mL High HCG 1918 QUANT. Result Comment: Critical Result(s) Called at: 13:02:31 04/09/2018 by: Charlie Fuentes to Performed By: #### L700.8000 #### [facility] [address] [place], [address] CTA CHEST W/ + W/O Observed: 11/11/2017 Status: F Source: Strut CONTRAST 2:53 PM SYSTEM REPOSITORY Patient Name: DELMA BARTON CT Exam Date/Time 11/11/2017 14:33:39 EDT Exam CTA Chest w/ + w/o Contrast Ordering Physician MANJINDER RAMÍREZ DANIEL M Accession Number [id number] CPT4 Codes 61699 (), Q9967 () Reason For Exam dyspnea, chest pain Report Reasons for examination: Cough chest pain. CT scan of the chest were performed with bolus contrast and high resolution scans for CT pulmonary angiographic study, with images post-processed by myself on [employer] workstation, with 3D - volume rendered CT [...] CHEST PA/LAT Observed: 11/11/2017 Status: F Source: Strut 1:31 PM SYSTEM REPOSITORY Patient Name: DELMA BARTON Diagnostic Radiology Exam Date/Time 11/11/2017 13:16:43 EDT Exam CR Chest PA/LAT Ordering Physician MANJINDER RAMÍREZ DANIEL M Accession Number [id number] CPT4 Codes 06570 () Reason For Exam cough, chest pain [...] W/ AUTODIFF Collected: 11/11/2017 Status: F Source: Strut 12:31 PM SYSTEM REPOSITORY TYPE CODE TESTS [...] #### HEMDF, BMP3, DDI2, TROPN, QWAL #### [employer] [facility] [employer] [facility] [address] [place] [address] BASIC METABOLIC PANEL Collected: 11/11/2017 Status: F Source: Strut 12:31 PM SYSTEM REPOSITORY TYPE CODE TESTS [...] #### HEMDF, BMP3, DDI2, TROPN, QWAL #### [employer] [facility] [employer] [facility] [address] [place] [address] D-DIMER, INNOVANCE Collected: 11/11/2017 Status: F Source: Strut 12:31 PM SYSTEM REPOSITORY TYPE CODE TESTS [...] #### HEMDF, BMP3, DDI2, TROPN, QWAL #### [employer] [address] [place] [address] TROPONIN I Collected: 11/11/2017 Status: F Source: Strut 12:31 PM SYSTEM REPOSITORY TYPE CODE TESTS RESULT OUT OF RANGE REFERENCE UNITS LAB TROP4 0.000-0.034 ng/mL Normal Troponin I < 0.012 Result Comment: 0.046 - 0.400 = Indeterminate > 0.400 = Consider Myocardial Injury Performed By: #### HEMDF, BMP3, DDI2, TROPN, QWAL #### [employer] [address] [place] [address] HCG QUAL PREG Collected: 11/11/2017 Status: F Source: Strut 12:31 PM SYSTEM REPOSITORY TYPE CODE TESTS RESULT OUT OF RANGE REFERENCE UNITS LAB QWLC m[IU]/mL Normal hCG NEGATIVE Qual Preg Result Comment: REF RANGE: Negative .... < 3 Questionable Rpt 48-72 Hr Positive ..... > 10 Performed By: #### HEMDF, BMP3, DDI2, TROPN, QWAL #### [employer] [address] [place] [address] CR ANKLE 3+ VIEWS Observed: 07/19/2017 Status: F Source: Strut [facility] 1:14 PM SYSTEM REPOSITORY Patient Name: DELMA BARTON Diagnostic Radiology Exam Date/Time 07/19/2017 13:24:48 EDT Exam CR Ankle 3+ Views Left Ordering Physician MANJINDER RAMÍREZ DANIEL M Accession Number [id number] CPT4 Codes 87890 () Reason For Exam pain Report LEFT [...] 3 VIEWS Observed: 07/19/2017 Status: F Source: [facility] 1:13 PM SYSTEM REPOSITORY Patient Name: DELMA BARTON Diagnostic Radiology Exam Date/Time 07/19/2017 13:24:48 EDT Exam CR Knee 3 Views Left Ordering Physician MANJINDER RAMÍREZ DANIEL M Accession Number [id number] CPT4 Codes 48217 () Reason For Exam pain/injury Report Left [...] 07/19/2017 1:24 Observed: 06/21/2017 Status: F [facility] CHLAMYDIA AND GC PCR 10:55 PM SYSTEM REPOSITORY PANEL Specimen Source Comment:Cervix [facility] Patient name: DELMA BARTON M.R.N.: [id number] : 1995 Age: 22 Sex: F Ord. Physician: GARDENIA VILLAFANA Location: Copy to: ABRAHAMLEONARD GARDENIA DISCHARGED: 06/22/17 Adm. Date: 06/21/17 MICROBIOLOGY ORDER#: [id number] COLLECTED: 06/21/17 22:55 SOURCE: Cervix RECEIVED: 06/21/17 23:01 OE C O M M E N T S Specimen Source Comment:Cervix Chlamydia trachomatis PCR FINAL 06/22/17 12:12 06/22/17 NOT Detected Chlamydia trachomatis Nucleic Acid NOT Detected by DNA Amplification using the F[employer] System. Culture is the only recommended test in medical-legal cases such as suspected child abuse or molestation. Neisseria gonorrhoeae PCR FINAL 06/22/17 12:12 06/22/17 NOT Detected Neisseria gonorrhoeae Nucleic Acid NOT Detected by DNA Amplification using the Fliqz System. Culture is the only recommended test in medical-legal cases such as suspected child abuse or molestation. Performed By: #### CTNGP #### [place] [address] Observed: 06/21/2017 Status: F Source: [facility] [employer] VAGINAL PATHOGENS DNA 10:55 PM SYSTEM REPOSITORY - AFFIRM [facility] Patient name: PIETERJosueDELMANJerica: [id number] : 1995 Age: 22 Sex: F Ord. Physician: GARDENIA VILLAFANA Location: Copy to: GARDENIA VILLAFANA DISCHARGED: 06/22/17 Adm. Date: 06/21/17 MICROBIOLOGY ORDER#: [id number] COLLECTED: 06/21/17 22:55 SOURCE: Vagina (Vagina) RECEIVED: 06/21/17 23:01 Danni - Vaginal Pathogens DNA FINAL 06/23/17 07:08 06/23/17 POSITIVE Gardnerella - Vaginal Pathogens DNA FINAL 06/23/17 07:08 06/23/17 POSITIVE Trichomonas - Vaginal Pathogens DNA FINAL 06/23/17 07:08 06/23/17 Negative Performed By: #### AFIRM #### [facility] [address] [place] [address] Observed: 06/21/2017 Status: F Source: [facility] CULTURE URINE 10:55 PM SYSTEM REPOSITORY Specimen Source Comment:Urine, clean catch [facility] Patient name: DELMA BARTON LaylaR.N.: [id number] : 1995 Age: 22 Sex: F Ord. Physician: GARDENIA VILLAFANA Location: Copy to: GARDENIA VILLAFANA DISCHARGED: 06/22/17 Adm. Date: 06/21/17 MICROBIOLOGY ORDER#: [id number] COLLECTED: 06/21/17 22:55 SOURCE: Urine RECEIVED: 06/21/17 23:09 OE C O M M E N T S Specimen Source Comment:Urine, clean catch CULTURE URINE FINAL 06/24/17 08:17 06/23/17 Normal urogenital geo present. <10,000 CFU/ml Streptococcus agalactiae (Group B) Susceptibility testing not routinely performed. Group B streptococcus is universally susceptible to beta-lactam antibiotics and vancomycin. If patient is beta-lactam allergic, please call [facility] lab ([phone]) within 2 days to request susceptibility testing. If isolated from urine, Group B strep may indicate colonization or infection. Performed By: #### C/UR #### [facility] [address] [place] [address] ALLERGIES ALLERGIES DATE TYPE / CODE NAME / CODE REACTION SEVERITY SOURCE 05/24/2018 Drug No Known Unknown [place] Allergy/340538954(S Allergies/F[address] [place]) [address](RXNORM) Hospital Repository Miscellaneous NO KNOWN [place] Allergy/148532018(S ALLERGIES [facility] NOM[facility]) Hospital Repository ENCOUNTERS ENCOUNTERS ADMIT/DISCHARGE ACCOUNT NUMBER ADMITTING ENCOUNTER LOCATION SOURCE CLASS 06/01/2018 [id number] Ambulatory [facility] ding:PAVLAB Repository 05/27/2018 [id number] Ambulatory BMSBuilding: Michelle BMS.[facility] Repository 05/24/2018 [id number] Ambulatory [facility] ding:LABSPEC Repository 05/24/2018/05/24/19 [id number] Ambulatory BMSBuilding: Michelle 19 BMS.[facility] Repository 04/29/2018 [id number] Emergency BuildinB [facility] EDRoom: System [id number]: Repository [id number] 04/26/2018 [id number] Ambulatory [facility] ding:LABSPEC Repository 04/26/2018/04/26/20 [id number] Ambulatory BMSBuilding: Michelle 18 BMS.[facility] Repository 04/09/2018 [id number] Ambulatory [facility] ding:LAB.FUT Repository URE 11/15/2017/11/16/19 [id number] Ambulatory Building:[address] Repository 11/11/2017 [id number] Emergency BuildinA [facility] EDRoom: 2A System 444Bed: Repository [id number] 07/19/2017 [id number] Emergency BuildinA [facility] EDRoom: 2A System 444Bed: Repository [id number] 06/21/2017 [id number] Emergency BuildinB [facility] EDRoom: System [id number]: Repository [id number] PAYERS PAYERS ENCOUNTER GUARANTOR PAYER SUBSCRIBER SOURCE 06/01/2018 DELMA [place] Primary BILL BUCYDOB: Michelle TANG Insurance:ANTHEMPolic [id number] Number: [facility] [address]Sye: (186) [id number] Repository [phone] () Date:[id number] [address]VT: 06/01/2018 Secondary NOT GIVENUNK [place] Insurance:SELF PAY [facility] Number: Effective Repository Date:2018-06-01 05/27/2018 DELMA BARTON60 Primary BILL BUCYDOB: [place] TANG Insurance:ANTHEMPolic [id number] [facility] [place] Number: Hospital [id number]: (330 [id number] Repository [phone] (HP) Date:1771-80-36BO [address] [place] [address]VN: 05/27/2018 Secondary NOT GIVENUNK [place] Insurance:SELF PAY [facility] Number: Effective Repository Date:2018-05-27 05/24/2018 DELMA [place] Primary BILL BUCYDOB: [place] TANG Insurance:ANTHEMPolic [id number] [place] Number: Hospital [address]Nhi: (330) [id number] Repository [phone] () Date:6042-76-86XC [address] [place] [address]OK: 05/24/2018 Secondary NOT GIVENUNK [place] Insurance:SELF PAY [facility] Hospital Number: Effective Repository Date:2018-05-24 05/24/2018 DELMA BARTON60 Primary BILL BUCYDOB: [place] TANG Insurance:ANTHEMPolic [id number] [place] Number: Hospital [address]Hiz: (330) [id number] Repository [phone] (HP) Date:7010-87-55NM [address] [place] [address]XV: 05/24/2018 Secondary NOT GIVENUNK [place] Insurance:SELF PAY [facility] Hospital Number: Effective Repository Date:2018-05-24 04/29/2018 Delma Guerra Primary [facility] BucyDOB: Insurance:[facility] BucyDOB: System licy Number: [id number] [facility] Effective Date: [place], [place] [address]Osz: (HP) 04/26/2018 DELMA BARTON60 Primary BILL BUCYDOB: Michelle TANG [facility] [id number] [place] CAREPolic Number: Hospital [id number]: (330 [id number] Repository [phone] (HP) Date:4073-21-23FK [address] [facility] [place] [address]FR: 04/26/2018 Secondary NOT GIVENUNK [place] Insurance:SELF PAY [facility] Number: Effective Repository Date:2018-04-26 04/26/2018 DELMA BARTON60 Primary BILL BUCYDOB: [place] TANG Insurance[facility] [id number] [place] CAREPolicy Number: Hospital [id number]: 330) [id number] Repository [phone] () Date:6898-82-10FI [address] [facility] [place] [address]AE: 04/26/2018 Secondary NOT GIVENUNK [place] Insurance:SELF PAY [facility] Number: Effective Repository Date:2018-04-26 04/09/2018 DELMA Guerra PIETERJosue60 Primary BILL BUCYDOB: [place] TANG Insurance:[facility] [id number] [place] CAREPolicy Number: Hospital [id number]: 330 [id number] Repository [phone] () Date:2900-12-74XR [address] [place] [id number]: 04/09/2018 Secondary NOT GIVENUNK [place] Insurance:SELF PAY [facility] Number: Effective Repository Date:2018-04-09 11/15/2017 DELMA [place] Primary [facility]MA [facility] BUCYDOB: Insurance:SUMMACAREPo BUCYDOB: [facility] licy Number: [id number] [facility] [id number], [place] Date: [place], [place] [address]Joo: [phone] () 11/15/2017 Secondary DELMA [facility] Insurance:SUMMACAREPo BUCYDOB: Hospital licy Number: [id number] Repository [id number] [place] Date: [place] [address] 11/11/2017 Delma Mckeon Raul [facility] BucyDOB: Insurance:SummaCarePo BucyDOB: System licy Number: [id number] Repository [place] Effective Date: [place] [address]Rmv: (HP) 07/19/2017 Delma Guerra [facility] BucyDOB: Insurance:SummaCarePo BucyDOB: System licy Number: [id number] Repository [place] [facility] [place] [address]Bby: (HP) 06/21/2017 Delma Mckeon Raul [facility] BucyDOB: Insurance:SummaCarePo BucyDOB: System licy Number: [id number] Repository [place] Date: [place] [address]Nfc: (HP)
== END ==
PROVIDERS: Family Provider Pediatrics; PCP Pediatrics; Visit Provider Nurse Practitioner Women's Health
DX: Z34.81 Encounter for supervision of other normal pregnancy, first trimester (principal)
CPT/HCPCS: 36415; 85025; 86592; 86703; 86762; 86850; 86900; 87340

== ENCOUNTER → 2018-09-13 11:44 | Outpatient (CLI) | payer BC, MEDICAID, SELFPAY ==
[2018-09-13 11:27] VITALS: BMI 31.1
[2018-09-13 13:11] LABS: Absolute Lymphocyte Count 1.01 X10^3/ul (0.83-4.51); Absolute Neutrophil Count 4.6 X10^3/uL (2.0-7.7); Basophil# 0.02 X10^3/uL; Basophil% 0.3 % (0-1); Eosinophil# 0.06 X10^3/uL; Hematocrit 30.9 % (37-47); Hemoglobin 10.5 g/dl (12.0-15.0); Lymphocyte # 1.01 X10^3/ul (4.0); Lymphocyte % 16.6 % (19-41); Mean Corpuscular Hgb 29.9 pg (27.0-32.0); Mean Platelet Vol. 11.3 fl (6.2-12.0); Monocyte# 0.34 X10^3/uL; Monocyte% 5.6 % (0-10); Neutrophil # 4.62 X10^3/uL (2.7-7.7); POSITIVE COUNT NO; POSITIVE DIFFERENTIAL NO; POSITIVE MORPHOLOGY NO; Platelet Count 180 K/mm3 (150-450); RBC Distribution Width CV 13.1 % (11.6-14.6); RBC Distribution Width SD 40.2 fl (35.1-43.9); Red Blood Count 3.51 M/mm3 (4.2-5.4); White Blood Count 6.1 K/mm3 (4.4-11.0)
[2018-09-13 13:29] LABS: Glucose Challenge Gest 1H 50g 108 mg/dL (70-140)
== END ==
LOC: PAVLAB 11:47 → LAB 11:52
PROVIDERS: Family Provider Pediatrics; PCP Pediatrics; Referring Provider Obstetrics & Gynecology; Visit Provider Obstetrics & Gynecology
DX: Z34.92 Encounter for supervision of normal pregnancy, unspecified, second trimester (principal); Z3A.27 27 weeks gestation of pregnancy
CPT/HCPCS: 36415; 82950; 85025

== ENCOUNTER → 2018-11-18 09:18 | Outpatient (CLI) | payer BC, MEDICAID, SELFPAY ==
[2018-11-18 08:59] VITALS: BMI 32.8
[2018-11-18 09:35] LABS: Absolute Neutrophil Count 6.7 X10^3/uL (2.0-7.7); Basophil# 0.01 X10^3/uL; Basophil% 0.1 % (0-1); Eosinophil# 0.11 X10^3/uL; Eosinophils% 1.3 % (0-5); Hematocrit 32.6 % (37-47); Hemoglobin 11.2 g/dl (12.0-15.0); Lymphocyte % 14.8 % (19-41); Mean Corp Hgb Conc 34.4 g/gl (32-36); Mean Corpuscular Hgb 30.3 pg (27.0-32.0); Mean Corpuscular Volume 88.1 fL (81-99); Mean Platelet Vol. 10.7 fl (6.2-12.0); Monocyte# 0.59 X10^3/uL; Monocyte% 6.7 % (0-10); Neutrophil # 6.69 X10^3/uL (2.7-7.7); Platelet Count 178 K/mm3 (150-450); RBC Distribution Width CV 13.2 % (11.6-14.6); RBC Distribution Width SD 40.8 fl (35.1-43.9); White Blood Count 8.8 K/mm3 (4.4-11.0)
[2018-11-18 09:36] LABS: POSITIVE COUNT NO; POSITIVE DIFFERENTIAL NO; POSITIVE MORPHOLOGY NO
[2018-11-18 09:55] LABS: ALB/GLOB Ratio 0.7 RATIO (0.9-2.4); AST(SGOT) 13 U/L (15-37); Alanine Aminotransfer ALT/SGPT 12 U/L (13-56); Albumin, Serum 2.9 g/dL (3.2-5.0); Alkaline Phosphatase 159 U/L (45-117); Anion Gap 6 (5-15); BUN 8 mg/dL (7-18); BUN/Creat Ratio 11.7 RATIO (10-20); Calcium,Total 8.9 mg/dL (8.5-10.1); Chloride 105 mmol/L (98-107); Creatinine, Serum 0.68 mg/dL (0.55-1.02); EST Glomerular Filtration Rate 115 mL/min (>60); Est Glom Filt Rate - Afr Amer 139 mL/min (>60); Globulin 4.4 g/dL (2.2-4.2); Glucose 107 mg/dL (74-106); LDH 150 U/L (84-246); Potassium 4.2 mmol/L (3.5-5.1); Protein, Total 7.3 g/dL (6.4-8.2); Sodium Level 137 mmol/L (136-145)
== END ==
PROVIDERS: Family Provider Pediatrics; PCP Pediatrics; Referring Provider Obstetrics & Gynecology; Visit Provider Obstetrics & Gynecology
DX: Z34.03 Encounter for supervision of normal first pregnancy, third trimester (principal)
CPT/HCPCS: 36415; 80053; 83615; 84550; 85025

== ENCOUNTER → 2018-11-18 16:21 | Outpatient (CLI) | payer BC, MEDICAID, SELFPAY ==
[2018-11-18 08:59] VITALS: BMI 32.8
== END ==
PROVIDERS: Family Provider Pediatrics; PCP Pediatrics; Referring Provider Obstetrics & Gynecology; Visit Provider Obstetrics & Gynecology
DX: Z34.00 Encounter for supervision of normal first pregnancy, unspecified trimester (principal)
CPT/HCPCS: 87081

== ENCOUNTER 2018-11-21 12:40 | Outpatient (CLI) | payer BC, MEDICAID, SELFPAY ==
[2018-11-18 08:59] VITALS: BMI 32.8
[2018-11-21 12:54] VITALS: BMI 33.5
--- NOTE | 2018-11-23 04:49 | OB.TRI.PN ---
Progress Notes Date of Service: 11/21/18 Progress Note: Patient seen for decreased movement FHT 140 moderate variability to mild variables lasting 20 seconds. Resolution and and reactive NST category 1 tracing afterwards BPP 8 out of 8 and normal KAI and growth Assessment and plan decreased movement feeling good movement now and reassuring status DC home follow-up scheduled
== END 2018-11-21 14:41 | disposition home or self-care (01) ==
LOC: WPOUT 12:48 → OBT 12:48
PROVIDERS: Family Provider Pediatrics; PCP Pediatrics; Referring Provider Obstetrics & Gynecology; Visit Provider Obstetrics & Gynecology
DX: O36.8190 Decreased fetal movements, unspecified trimester, not applicable or unspecified (principal); Z3A.00 Weeks of gestation of pregnancy not specified
CPT/HCPCS: 59025; 59050; 99218; G0378

== ENCOUNTER → 2018-11-21 13:53 | Outpatient (CLI) | payer BC, MEDICAID, SELFPAY ==
[2018-11-18 08:59] VITALS: BMI 32.8
[2018-11-21 12:54] VITALS: BMI 33.5
--- NOTE | 2018-11-21 13:55 | US_ITS ---
STUDY: SECOND AND THIRD TRIMESTER OBSTETRICAL ULTRASOUND REASON FOR EXAM: Female, 23 years old. Routine survey. LMP: March 07, 2018. TECHNIQUE: Transabdominal TECHNICAL QUALITY: Adequate. PRIOR ULTRASOUND: None. FINDINGS: There is a single intrauterine fetus. The fetus is in a cephalic presentation. There is demonstrated cardiac activity with a heart rate of 160 bpm. There is a normal amniotic fluid volume. The largest amniotic fluid pocket measures 3.4 cm. The amniotic fluid index (KAI) is 9.98 cm. The placenta is fundal in location. There are Grade 2 placental changes. The cervix is not well seen. The bilateral adnexal regions are normal. BIOMETRY: BPD: 8.63 cm: 34 weeks, 6 days HC: 32.16 cm: 36 weeks, 3 days AC: 33.31 cm: 37 weeks, 2 days FL: 6.99 cm: 35 weeks, 6 days CI: 78% FL/BPD: 81% FL/HC: FL/AC: 21% HC/AC: 0.97 age by current US: 36 weeks, 1 days. BEV by current US: December 18, 2018. Estimated weight: 2956 grams, +/- 432 grams, 42 %. Age by LMP: 37 weeks, 0 days. BEV by LMP: December 12, 2018. IMPRESSION: Single live intrauterine gestation with a mean gestational age of 36 weeks and 1 day. Electronically Signed: Santos Crooks, at 15:10 EDT , Service support , STUDY: OBSTETRICAL ULTRASOUND - BIOPHYSICAL PROFILE REASON FOR EXAM: Female, 23 years old. Decelerations on NST. LMP: March 07, 2018. PRIOR ULTRASOUND: None. TECHNIQUE: Transabdominal TECHNICAL QUALITY: Adequate. FINDINGS: BIOPHYSICAL PROFILE: Breathing Movements (FBM): 2 Gross Body Movements (GBM): 2 Tone (FT): 2 Amniotic Fluid Volume (AFV): 2 TOTAL SCORE: US/OB Limited With Biometrics IMPRESSION: Normal biophysical profile of 12/15. Electronically Signed: Santos Crooks, at 15:11 EDT , Service support ,
== END ==
PROVIDERS: Family Provider Pediatrics; PCP Pediatrics; Referring Provider Obstetrics & Gynecology; Visit Provider Obstetrics & Gynecology
DX: O26.843 Uterine size-date discrepancy, third trimester (principal); Z3A.00 Weeks of gestation of pregnancy not specified
CPT/HCPCS: 76816; 76819

== ENCOUNTER 2018-12-09 20:10 | Outpatient (CLI) | payer BC, MEDICAID, SELFPAY ==
[2018-12-07 09:21] VITALS: BMI 33.5
[2018-12-09 20:56] VITALS: BMI 34.7
[2018-12-09 21:43] VITALS: RESP 18
--- NOTE | 2018-12-15 06:05 | OB.TRI.PN_ITS ---
Progress Notes Date of Service: 12/09/18 Progress Note: co ctx fht 130 moderate variability reactive no decelerations category I tracing [place]: regular no cervical change a/p false labor reactive NST cat I tracing dc home labor precautions Multi Select Codes - Urinary/Genital Urinary/Genital CPT Codes: 72592-20 non-stress test Interp
== END 2018-12-09 21:43 | disposition home or self-care (01) ==
LOC: WPOUT 20:34 → WP 20:35
PROVIDERS: Family Provider Pediatrics; PCP Pediatrics; Referring Provider Obstetrics & Gynecology; Visit Provider Obstetrics & Gynecology
DX: O47.9 False labor, unspecified (principal); Z3A.00 Weeks of gestation of pregnancy not specified
CPT/HCPCS: 59025; 59050; 99218; G0378

== ENCOUNTER 2018-12-12 00:15 | Inpatient (IN) | payer BC, MEDICAID, SELFPAY ==
[2018-12-11 21:10] VITALS: BMI 34.6
[2018-12-11] MEDS: Lactated Ringers 1,000 ML 100 ML IV ×2 (22:33→23:31)
[2018-12-11] MEDS: Nalbuphine 10 MG/ML Ampul IV (22:33)
[2018-12-12 00:42] LABS: Absolute Lymphocyte Count 1.94 X10^3/uL (0.83-4.51); Absolute Neutrophil Count 9.4 X10^3/uL (2.0-7.7); Basophil# 0.04 X10^3/uL; Basophil% 0.3 % (0-1); Eosinophil# 0.14 X10^3/uL; Eosinophils% 1.1 % (0-5); Hematocrit 33.2 % (37-47); Hemoglobin 11.5 g/dL (12.0-15.0); Lymphocyte # 1.94 X10^3/ul (4.0); Lymphocyte % 15.6 % (19-41); Mean Corp Hgb Conc 34.6 g/dL (32-36); Mean Corpuscular Hgb 31.3 pg (27.0-32.0); Mean Corpuscular Volume 90.2 fL (81-99); Mean Platelet Vol. 11.8 fl (6.2-12.0); Monocyte# 0.77 X10^3/uL; Monocyte% 6.2 % (0-10); NRBC Flagged by Analyzer 0 % (0-5); Neutrophil # 9.42 X10^3/uL (2.7-7.7); Neutrophil % 76.1 % (47-70); Platelet Count 180 K/mm3 (150-450); RBC Distribution Width CV 12.8 % (11.6-14.6); RBC Distribution Width SD 42.4 fl (35.1-43.9); Red Blood Count 3.68 M/mm3 (4.2-5.4); White Blood Count 12.4 K/mm3 (4.4-11.0)
[2018-12-12] MEDS: fentaNYL-bupivacaine (epidural) 100 ML BAG EPIDURAL ×2 (01:52→06:03)
[2018-12-12] MEDS: Lactated Ringers 1,000 ML 50 ML IV (05:25)
--- NOTE | 2018-12-12 05:43 | PCM.HP.OB ---
- Problem List (1) Active labor at term Status: Acute (2) Anemia Status: Acute Qualifiers: (3) Status: Acute Qualifiers: Comment: NIPT- low risk, carrier, ntd screening declined. anatomy scan scheduled. repeat us in 2 weeks to complete spine views, otherwise normal 2 week scan shows complete spine view and normal appearance (4) Supervision of normal first Status: Acute Qualifiers: Comment: PRR BEV 12/12/18 girl Parris BF: Amy History Date of Admission: 12/12/18 Final BEV: 12/12/18 Gestational age: 40 Weeks and 0 Days History of this : This is a 23 year-old, , at 40 weeks gestational age and is in active labor. Patient was 4 cm dilated and may change to 6 cm with spontaneous rupture membranes clear fluid. Patient admits good movement and denies any vaginal bleeding. Surgical History: Surgical History (Last Reviewed 12/07/18 @ 09:21 by Patricia Santillan) ACL injury tear S83.519A [place] teeth extracted K08.409 Allergies No Known Allergies Allergy (Verified 12/11/18 21:21) Home Medications: Home Medications vitamin#30 30 mg iron-10 mg iron-folic acid 1 mg-omg3 capsule 1 cap PO DAILY cap 06/21/18 breast pump See Rx Instructions .ROUTE .MEDSUPPLY #1 ea 10/27/18 Ferrous Sulfate [Iron] 325 mg PO DAILY 12/09/18 Smoking Status: Never smoker Alcohol: None Number of Fetus(es): 1 Heart Tracin moderate variability reactive no decelerations category I tracing [place]: regular History Past Pregnancies: Past Pregnancies Delivery Date Name GA/Weeks Outcome Route Weight Infant Gender Labor Length Anesthesia Delivery Location Provider FOB Labs: Mom's Labs & Results 12/11/18 12/11/18 22:30 22:30 WBC 12.4 H RBC 3.68 L Hgb 11.5 L Hct 33.2 L MCV 90.2 MCH 31.3 MCHC 34.6 RDW Std Deviation 42.4 RDW Coeff of Christy 12.8 Plt Count 180 MPV 11.8 Immature Gran % (Auto) 0.700 Neut % (Auto) 76.1 H Lymph % (Auto) 15.6 L Cameron % (Auto) 6.2 Eos % (Auto) 1.1 Baso % (Auto) 0.3 Absolute Neuts (auto) 9.4 H Absolute Lymphs (auto) 1.94 Nucleated RBC % 0 Blood Type O POSITIVE Antibody Screen NEGATIVE Course Did the patient receive Yes care? Labs Blood Type: O RH: POSITIVE RPR/VDRL/Syphilis Nonreactive Rubella status Immune HbSAg Negative Date Done: 06/01/18 Chlamydia Negative Gonorrhea Negative HIV/AIDS Non-Reactive Group B Strep: Negative Current Obstetrical History Gestational Diabetes No Incompetent Cervix No Infertility No IUGR No Macrosomia No Hypertension/Pre-eclampsia No Placenta Previa/Abruption No PTL/PROM No Uterine anomaly No Oligohydramnios No Polyhydramnios No Multiple gestation No Past Medical History Asthma No Diabetes No Hypertension No Heart disease No Mitral valve prolapse No Neurologic/Seizure disorder/ No Migraines Kidney disease No Liver disease No Varicosities No Clotting disorders/Hx of DVT No Thyroid Dysfunction No Other medical diseases No Psychiatric disorders No Major trauma No Abnormal PAP smear No Sleep apnea No Mammogram in the last 2 years No Social History Marital Status: SINGLE Alleged father Amy Hx Smoking No Smoking Status Never smoker How long have you used n/a substances (years)? Expected Infant Delivery Method: Spontaneous Vaginal Review of Systems Constitutional: Denies: Fever, Malaise Eyes: Denies: Blurred vision, Vision Change HEENT: Denies: Head Aches, Visual Changes Cardiovascular: Denies: Chest Pain, Palpitations Respiratory: Denies: Cough, Shortness of Breath, Wheezing Gastrointestinal: Denies: Abdominal Pain, Diarrhea, Nausea, Vomiting Genitourinary: Denies: Dysuria, Hematuria Musculoskeletal: Denies: Joint Pain, Muscle pain Skin: Denies: Lesions, Rash Neurological: Denies: Blurred vision, Focal weakness, Headaches Psychiatric: Denies: Anxiety, Depression Endocrine: Denies: Heat/ Cold Intolerance Hematologic/ Lymphatic: Denies: Easy Bruising, Easy Bleeding Physical Exam General: Alert, Cooperative, No apparent distress HEENT: Atraumatic, Normocephalic. Negative for: Thyromegaly, Lymphadenopathy Cardiovascular: Regular rate Lungs: Normal air movement Abdomen: Soft, Non Tender, Gravid Neurological: Deep Tendon Reflexes 2+/4 and Symmetrical, Neuro grossly intact. Negative for: Clonus LEATHER STRETCHER: Normal external genitalia. Negative for: Vulvar lesions Estimated gestational size: Appropriate for gestational size Presentation: Cephalic Cervix Dilation (cm): 6 Station: -1 Effacement (%): 90 Assessment/Plan All Active Problems (Last Reviewed 12/07/18 @ 09:21 by Patricia Santillan) Active labor at term (Acute) Anemia (Acute) (Acute) Supervision of normal first (Acute) This is a 23 year-old, , at 40 weeks gestational age presents in active labor. Patient presents active labor plan expectant management for , Pitocin as needed. Pain management: Plans epidural. GBS negative. Management of any complications: None I have reviewed the [facility] and made any clinically relevant updates.
[2018-12-12] MEDS: Ondansetron 4 MG/2 ML Vial IV (06:51)
[2018-12-12] MEDS: Oxytocin 30 units/NS 500 ml 30 UNITS/500 ML IV.SOLN 334 UNITS IV (07:29)
[2018-12-12] MEDS: Oxytocin 30 units/NS 500 ml 30 UNITS/500 ML IV.SOLN 167 UNITS IV (08:00)
--- NOTE | 2018-12-12 10:36 | PCM.OPRPT ---
Problem List (1) Active labor at term Status: Acute (2) Anemia Status: Acute Qualifiers: (3) Status: Acute Qualifiers: Comment: NIPT- low risk, carrier, ntd screening declined. anatomy scan scheduled. repeat us in 2 weeks to complete spine views, otherwise normal 2 week scan shows complete spine view and normal appearance (4) Supervision of normal first Status: Acute Qualifiers: Comment: PRR BEV 12/12/18 girl Parris BF: Amy Vaginal Delivery Maternal Presentation: Active Labor ial Amniotic Membrane Rupture Type: Spontaneous Amniotic Fluid Description: Clear Final BEV: 12/12/18 Gestational age: 40 Weeks and 0 Days Date of Procedure: 12/12/18 Pre-Operative Diagnosis: ial Post-Operative Diagnosis: same Surgery/ Procedure Performed: Spontaneous Vaginal Delivery Type of Anesthesia: Epidural Description of Procedure: Patient began pushing and delivered the head in the ORTEGA presentation. The head was delivered atraumatically. The anterior and posterior shoulders delivered without complication followed by the rest of the and the infant was placed on the maternal abdomen. Delayed cord clamping was employed for approximately 60 seconds. Cord was clamped and cut and gentle traction was applied to the cord and the placenta delivered spontaneously immediately following it was noted to be intact with three-vessel cord. The perineum and vagina were inspected and noted to have a second-degree perineal laceration that was pared in the usual fashion with 3-0 Vicryl Rapide. EBL was 200 cc. Patient and infant tolerated delivery well. Presentation: ORTEGA Placental Delivery Description: Spontaneous Placenta Disposition: [facility] Cord Vessel Description: 3 Vessels Cord Entanglement: None Drain: Elliott to straight drain Estimated Blood Loss: 200 Infant A gender: Female Episiotomy Description: None Laceration: Perineal Extension/lac, 2nd degree Medications given after delivery: IV Pitocin Complications: None
[2018-12-12] MEDS: Naproxen 250 MG Tablet 500 MG PO ×2 (10:56→18:57)
[2018-12-12 13:25] VITALS: BP 121/73; PULSE 108; RESP 16; TEMP 36.9
[2018-12-12] MEDS: Senna/Docusate Sodium 1 Tablet PO (15:16)
[2018-12-12] MEDS: Acetaminophen 500 MG Tablet 1000 MG PO ×2 (15:16→23:17)
[2018-12-12 17:25] VITALS: BP 98/50; PULSE 94; RESP 16; TEMP 36.7
[2018-12-12 20:01] VITALS: BP 121/74; PULSE 88; RESP 18; TEMP 37.2
[2018-12-12 22:07] VITALS: BP 116/68; PULSE 82; RESP 16; O2SAT 99
--- NOTE | 2018-12-12 22:09 | NURSING ---
Pt. called this RN to room to assess a blood clot she passed when she was using the restroom. A solid clot approx. the size of a baseball was passed. Pt's uterus firm at u-2 with scant to small bleeding. Pt. blood pressure obtained and resulted at 116/68. SPO2 99% with a heart rate of 82 bpm.
[2018-12-12 23:18] VITALS: BP 107/63; PULSE 85; RESP 16; TEMP 36.8; O2SAT 97
[2018-12-13] MEDS: Naproxen 250 MG Tablet 500 MG PO ×2 (03:38→13:41)
[2018-12-13 03:39] VITALS: BP 104/53; PULSE 77; RESP 16; TEMP 36.7; O2SAT 98
--- NOTE | 2018-12-13 09:47 | PCM.PN.OB ---
Patient Problems: Active and Suspected Problems (Last Reviewed 12/07/18 @ 09:21 by Patricia Santillan) Active labor at term (Acute) Subjective: doing well no complaints pain controlled no CP SOB N V ambulating well tolerating po lochia moderate, going well - Physical Exam Vital Signs Temp Pulse Resp BP Pulse Ox 98.0 F 77 16 104/53 L 98 12/13/18 03:39 12/13/18 03:39 12/13/18 03:39 12/13/18 03:39 12/13/18 03:39 Oxygen Delivery Method Room Air Weight: 208 lb Body Mass Index (BMI) 34.6 Intake and Output for Last 24 Hours 12/11/18 12/12/18 12/13/18 23:59 23:59 23:59 Intake Total 2352 / 2352 Output Total 1950 / 1950 Balance 402 / 402 Medical Necessity - Tobacco Use Smoking Status: Never smoker Assessment/Plan All Active Problems (Last Reviewed 12/07/18 @ 09:21 by Patricia Santillan) Active labor at term (Acute) Anemia (Acute) (Acute) Supervision of normal first (Acute) s/p PPD # 1 1. routine post delivery care 2. breast feeding- support given 3. rh positive 4. rubella immune
--- NOTE | 2018-12-13 09:48 | DCINST_ITS ---
Discharge Diet: No Restrictions Discharge Activity: Return to Normal Activity, May not drive while taking narcotic pain medications., May Shower May resume sexual activity in: 4-6 weeks Call your doctor if your incision/area has: Continuous Slow Oozing, Sudden Increased Bleeding, Increased Pain/ Swelling, Increased Redness, Foul Smelling Discharge Additional Instructions: If you experience any of the following, contact your healthcare provider. * Bleeding that soaks a pad every hour for 2 hours * Fever 100.4 or higher * Unrelieved incision or abdominal pain * Swelling, redness, discharge or bleeding from your incision or episiotomy site * Your incision begins to separate * Problems urinating (including inability to urinate or burning while urinating). * Visual changes * Severe headache * Flu-like symptoms * Pain or redness in one of both of your breasts * Pain, warmth, tenderness or swelling in your legs, especially the calf area * Frequent nausea and vomiting * Symptoms of depression or anxiety If you experience any of the following, call 911 or go to the nearest Emergency Room. * Chest pain * Problems breathing * Seizure activity * Partial or complete paralysis of a body part, slurred speech, weakness or drooping of the face, or a sudden inability to walk or hold your balance Allergies/Adverse Reactions: Allergies No Known Allergies Allergy (Verified 12/11/18 21:21) Medications to take at Discharge vitamin#30 30 mg iron-10 mg iron-folic acid 1 mg-omg3 capsule 1 cap PO DAILY cap 06/21/18 breast pump See Rx Instructions .ROUTE .MEDSUPPLY #1 ea 10/27/18 Ferrous Sulfate [Iron] 325 mg PO DAILY 12/09/18 Naproxen [Naprosyn] 250 - 500 mg PO Q8H PRN PRN #30 tab 12/13/18 The following prescriptions were given: Naproxen [Naprosyn] 250 - 500 mg PO Q8H PRN PRN #30 tab PRN Reason: MILD PAIN Transmission Status: Pending to [facility] Please Follow Up With: Christina Alvarez MD - [phone] When: Call to make an appointment with your doctor in 6 weeks. If you had elevated Blood pressure or 4th degree laceration you will need to be seen in 2 weeks. Primary Care Physician: Deoras,Shivani, MD [Primary Care Provider] - Test Results: Test results from this visit will be discussed in further detail at your follow- up appointment, if applicable.
--- NOTE | 2018-12-13 09:48 | PCM.DCVAG ---
Discharge Diet: No Restrictions Discharge Activity: Return to Normal Activity, May not drive while taking narcotic pain medications., May Shower May resume sexual activity in: 4-6 weeks Call your doctor if your incision/area has: Continuous Slow Oozing, Sudden Increased Bleeding, Increased Pain/ Swelling, Increased Redness, Foul Smelling Discharge Additional Instructions: If you experience any of the following, contact your healthcare provider. Bleeding that soaks a pad every hour for 2 hours Fever 100.4 or higher Unrelieved incision or abdominal pain Swelling, redness, discharge or bleeding from your incision or episiotomy site Your incision begins to separate Problems urinating (including inability to urinate or burning while urinating). Visual changes Severe headache Flu-like symptoms Pain or redness in one of both of your breasts Pain, warmth, tenderness or swelling in your legs, especially the calf area Frequent nausea and vomiting Symptoms of depression or anxiety If you experience any of the following, call 911 or go to the nearest Emergency Room. Chest pain Problems breathing Seizure activity Partial or complete paralysis of a body part, slurred speech, weakness or drooping of the face, or a sudden inability to walk or hold your balance Allergies/Adverse Reactions: Allergies No Known Allergies Allergy (Verified 12/11/18 21:21) Medications to take at Discharge vitamin#30 30 mg iron-10 mg iron-folic acid 1 mg-omg3 capsule 1 cap PO DAILY cap 06/21/18 breast pump See Rx Instructions .ROUTE .MEDSUPPLY #1 ea 10/27/18 Ferrous Sulfate [Iron] 325 mg PO DAILY 12/09/18 Naproxen [Naprosyn] 250 - 500 mg PO Q8H PRN PRN #30 tab 12/13/18 The following prescriptions were given: Naproxen [Naprosyn] 250 - 500 mg PO Q8H PRN PRN #30 tab PRN Reason: MILD PAIN Transmission Status: Pending to [facility] Please Follow Up With: Christina Alvarez MD - [phone] When: Call to make an appointment with your doctor in 6 weeks. If you had elevated Blood pressure or 4th degree laceration you will need to be seen in 2 weeks. Primary Care Physician: Shivani Nur MD [Primary Care Provider] - Test Results: Test results from this visit will be discussed in further detail at your follow-up appointment, if applicable.
[2018-12-13 09:49] VITALS: BP 110/65; PULSE 87; RESP 16; TEMP 36.5; O2SAT 99
[2018-12-13] MEDS: Acetaminophen 500 MG Tablet 1000 MG PO (09:59)
[2018-12-13] MEDS: Senna/Docusate Sodium 1 Tablet PO (09:59)
[2018-12-13 10:00] VITALS: BP 111/69; PULSE 75; RESP 16; TEMP 36.8; O2SAT 98
[2018-12-13 14:00] VITALS: BP 111/69; PULSE 75; RESP 16; TEMP 36.8
== END 2018-12-13 15:05 | disposition home or self-care (01) | DRG 807 ==
LOC: WPOUT 00:33
PROVIDERS: Admitting Provider Obstetrics & Gynecology; Family Provider Pediatrics; PCP Pediatrics; Referring Provider Obstetrics & Gynecology; Visit Provider Obstetrics & Gynecology
DX: O70.1 Second degree perineal laceration during delivery (principal); Z37.0 Single live birth; D64.9 Anemia, unspecified; O99.02 Anemia complicating childbirth; Z3A.40 40 weeks gestation of pregnancy
CPT/HCPCS: 59025; 59050; 85025; 86850; 86900; 99218; J7120; G0378; J2405

== ENCOUNTER → 2019-01-30 17:05 | Outpatient (CLI) | payer BC, MEDICAID, SELFPAY ==
[2019-01-30 14:37] VITALS: BMI 34.6
[2019-02-05 13:33] LABS: HPV Reflexed? NOT INDICATED
== END ==
PROVIDERS: Family Provider Pediatrics; PCP Pediatrics; Referring Provider Obstetrics & Gynecology; Visit Provider Obstetrics & Gynecology
DX: Z12.4 Encounter for screening for malignant neoplasm of cervix (principal)
CPT/HCPCS: 88175; G0145

== ENCOUNTER → 2019-02-22 13:48 | Outpatient (CLI) | payer BC, MEDICAID, SELFPAY ==
[2019-01-30 14:37] VITALS: BMI 34.6
--- NOTE | 2019-02-22 13:50 | US_ITS ---
STUDY: ULTRASOUND OF THE FEMALE PELVIS - COMPLETE REASON FOR EXAM: Female, 23 years old. IUD placement. Bilateral pelvic pain. LMP: The patient is 10 weeks . TECHNIQUE: Transabdominal and Transvaginal TECHNICAL QUALITY: Adequate. COMPARISON: None. FINDINGS: The uterus is anteverted and is in a midline position. The uterus measures 10.2 cm x 6 cm x 3.5 cm. Normal uterine cervix. The endometrium measures 5.5 mm in thickness, and is hyperechoic. There is no demonstrated endometrial mass. There is no demonstrated myometrial mass. I.U.D. - The patient does have an I.U.D. and lies in the lower uterine segment. The right ovary is visualized. The right ovary measures 3.2 cm x 3.9 cm x 1.7 cm. Dominant follicle is seen within it measuring 1.5 cm x 1.6 x 2 x 1.1 cm. There is no visualized right adnexal mass or complex lesion. There is normal arterial and normal venous vascularity. The left ovary is visualized. The left ovary measures 3 cm by 2.7 cm x 1.8 cm. There is no left ovarian cyst or ovarian mass. There is no visualized left adnexal mass or complex lesion. There is normal arterial and normal venous vascularity. There is no fluid in the cul-de-sac. Polycystic ovary disease: No. US/Transvaginal Non- IMPRESSION: IUD seen within the lower uterine segment. Electronically Signed: Santos Crooks, at 15:25 EDT , Service support ,
--- NOTE | 2019-02-22 13:50 | US_ITS ---
STUDY: ULTRASOUND OF THE FEMALE PELVIS - COMPLETE REASON FOR EXAM: Female, 23 years old. IUD placement. Bilateral pelvic pain. LMP: The patient is 10 weeks . TECHNIQUE: Transabdominal and Transvaginal TECHNICAL QUALITY: Adequate. COMPARISON: None. FINDINGS: The uterus is anteverted and is in a midline position. The uterus measures 10.2 cm x 6 cm x 3.5 cm. Normal uterine cervix. The endometrium measures 5.5 mm in thickness, and is hyperechoic. There is no demonstrated endometrial mass. There is no demonstrated myometrial mass. I.U.D. - The patient does have an I.U.D. and lies in the lower uterine segment. The right ovary is visualized. The right ovary measures 3.2 cm x 3.9 cm x 1.7 cm. Dominant follicle is seen within it measuring 1.5 cm x 1.6 x 2 x 1.1 cm. There is no visualized right adnexal mass or complex lesion. There is normal arterial and normal venous vascularity. The left ovary is visualized. The left ovary measures 3 cm by 2.7 cm x 1.8 cm. There is no left ovarian cyst or ovarian mass. There is no visualized left adnexal mass or complex lesion. There is normal arterial and normal venous vascularity. There is no fluid in the cul-de-sac. Polycystic ovary disease: No. US/Pelvic (Non ) IMPRESSION: IUD seen within the lower uterine segment. Electronically Signed: Santos Crooks, at 15:25 EDT , Service support ,
--- NOTE | 2019-02-22 15:18 | RAD_ITS ---
STUDY: X-RAY - PELVIS REASON FOR EXAM: Female, 23 years old. Pain since placement of IUD 3 weeks ago. TECHNIQUE: One view of the pelvis was obtained. COMPARISON: None. FINDINGS: There is a non-specific bowel gas pattern. A Mirena IUD is present near the midline consistent with intrauterine position. Normal bilateral iliac wings, sacroiliac joints and visualized sacrum. Normal visualized bilateral superior and inferior pubic rami. Normal pubic symphysis. Normal ischial tuberosities. Normal visualized right femoral head. Normal right acetabulum. Normal right hip joint. Normal visualized left femoral head. Normal left acetabulum. Normal left hip joint. RAD/Pelvis 1 or 2 Views IMPRESSION: Recurrent IUD is present in the midline of the mid pelvis consistent with intrauterine position. Otherwise, normal osseous structures and soft tissues of the pelvis. Electronically Signed: Rut Anna MD at 15:40 EDT , Service support ,
== END ==
PROVIDERS: Family Provider Pediatrics; PCP Pediatrics; Referring Provider Obstetrics & Gynecology; Visit Provider Obstetrics & Gynecology
DX: Z97.5 Presence of (intrauterine) contraceptive device (principal)
CPT/HCPCS: 72170; 76830; 76856; 93976

== ENCOUNTER → 2022-02-16 | Outpatient (CLI) | payer BC, SELFPAY ==
[2022-02-16 12:21] LABS: hCG Titer Quant., Serum 42 mIU/mL (1-3)
== END | disposition home or self-care (01) ==
PROVIDERS: PCP Pediatrics; Referring Provider Nurse Practitioner Women's Health; Visit Provider Nurse Practitioner Women's Health
DX: N92.0 Excessive and frequent menstruation with regular cycle (principal)
CPT/HCPCS: 36415; 84702

== ENCOUNTER → 2022-02-18 | Outpatient (CLI) | payer BC, SELFPAY ==
[2022-02-18 10:43] LABS: hCG Titer Quant., Serum 78 mIU/mL (1-3)
== END | disposition home or self-care (01) ==
LOC: PAVLAB 09:29
PROVIDERS: PCP Pediatrics; Referring Provider Nurse Practitioner Women's Health; Visit Provider Nurse Practitioner Women's Health
DX: N92.0 Excessive and frequent menstruation with regular cycle (principal)
CPT/HCPCS: 36415; 84702

== ENCOUNTER → 2022-02-18 | Outpatient (CLI) | payer BC, SELFPAY ==
--- NOTE | 2022-02-18 16:50 | US_ITS ---
STUDY: FIRST TRIMESTER OBSTETRICAL ULTRASOUND REASON FOR EXAM: Female, 26 years old viability LMP: TECHNIQUE: Transvaginal TECHNICAL QUALITY: Adequate. PRIOR ULTRASOUND: None. FINDINGS: There is no intrauterine gestational sac is present. The uterus measures 9.8 x 6.5 x 4.5 cm. There is no demonstrated uterine fibroid. The cervix is closed. The right ovary measures 3.6 x 2 x 1.3 cm. There is no right ovarian cyst. There is no visualized right adnexal mass or complex lesion. The left ovary measures 4.5 x 2.3 x 2.5 cm. Small cyst measuring 2.2 x 1.9 x 1.9 cm. There is no visualized left adnexal mass or complex lesion. There is no fluid in the cul de sac. US/Transvaginal w/Preg US IMPRESSION: Small left ovarian cyst. No evidence for intrauterine gestation or definitive evidence for ectopic Recommend clinical correlation and follow-up studies if clinically warranted Electronically Signed: Trae Cantu MD at 18:11 EDT ,
== END | disposition home or self-care (01) ==
LOC: US 16:49
PROVIDERS: PCP Family Medicine; Referring Provider Nurse Practitioner Women's Health; Visit Provider Nurse Practitioner Women's Health
DX: O36.80X0 Pregnancy with inconclusive fetal viability, not applicable or unspecified (principal)
CPT/HCPCS: 76817

== ENCOUNTER → 2022-02-20 | Outpatient (CLI) | payer BC, SELFPAY ==
[2022-02-20 13:47] LABS: Internal QC Validated? YES +Cl - CLEAR BKGD
[2022-02-20 13:48] LABS: Pregnancy, Serum, hCG Quali. POSITIVE Negative
[2022-02-20 14:53] LABS: hCG Titer Quant., Serum 185 mIU/mL (1-3)
== END | disposition home or self-care (01) ==
PROVIDERS: Obstetrics & Gynecology; PCP Family Medicine; Visit Provider Obstetrics & Gynecology
DX: O20.0 Threatened abortion (principal)
CPT/HCPCS: 36415; 84702; 84703

== ENCOUNTER 2022-03-11 17:32 | Emergency (ER) | payer BC, SELFPAY ==
[2022-03-11 17:32] VITALS: BP 146/78; PULSE 79; RESP 16; TEMP 36.6; O2SAT 99; BMI 34.3
--- NOTE | 2022-03-11 18:24 | EDS_ITS ---
HPI HPI - Female History of Present Illness Chief Complaint: Vag Bld, Preg Narrative Narrative: 26-year-old female here for vaginal bleeding in the setting of . Patient states he is approximate 7 weeks . She states Old chart reviewed: Ultrasound from 02/18/2022 shows IMPRESSION: Small left ovarian cyst.? No evidence for intrauterine gestation or definitive evidence for ectopic Recommend clinical correlation and follow-up studies if clinically warranted Serum hCG was 185 on 02/20/2022 PFSH PFSH Home Medications vitamin#30 30 mg iron-10 mg iron-folic acid 1 mg-omg3 capsule 1 cap PO DAILY 06/21/18 [History Last Taken 12/11/18 08:00] prochlorperazine maleate 10 mg tablet (Compazine) 10 mg PO Q8H PRN nausea and v omiting #90 tabs 02/27/22 [Rx Last Taken Unknown] Allergy/AdvReac Type Severity Reaction Status Date / Time No Known Allergies Allergy Verified 03/11/22 17:34 Surgical History ACL injury tear Gilbert teeth extracted Social History (Updated 02/22/19 @ 16:01 by Monique Benjamin LITIGATION COORDINATOR, LITIGATION COORDINATOR-C) number of children: 1 current occupational status: employed current occupation: [employer] Smoking Status: Never smoker alcohol intake: never substance use type: does not use seatbelt use: always do you feel safe at home: Yes ROS ROS ED ROS Narrative Constitutional: Denies fever HEENT: Denies sore throat Neck: Denies neck pain Cardiovascular: Denies chest pain, syncope Respiratory: Denies shortness of breath GI: Denies nausea vomiting or abdominal pain : Endorses vaginal bleeding Musculoskeletal: Denies muscle or joint pain Neurologic: Denies numbness weakness or loss of sensation Skin denies rash EXAM Physical Exam Narrative Exam Narrative: Nursing triage notes reviewed, Vital signs reviewed Constitutional: please see mdm HENT: MMM Eyes: Pupils equal round and reactive to light, Extraocular muscles intact Neck: No stridor, no JVD, full neck ROM Lungs: Clear to auscultation, No wheezing or rales. No increased work of breathing, no conversational dyspnea, no accessory muscle use, no nasal flaring. No respiratory distress noted Heart: Regular rate and rhythm, No murmurs, No rubs and No gallops, 2+ distal pulses (radial, femoral, posterior tibial) in all extremities Abdomen: Soft, there is no tenderness, rigidity, rebound or guarding, no obvious peritoneal signs, no palpable pulsatile abdominal masses, no auscultated abdominal bruit : No CVAT Extremities: No edema Neuro: No focal neurological deficits, cranial nerves II through XII intact, 5/5 strength in all extremities. Intact sensation to light touch in all extremities, 2+ reflexes bilateral patella dens. Normal gait. No ataxia. Skin: No rash or lesions noted Const Vital Signs: 03/11/22 17:32 Temperature 97.8 F Temperature Source Temporal Pulse Rate 79 Respiratory Rate 16 Blood Pressure 146/78 H Blood Pressure Mean 100 Pulse Ox 99 Oxygen Delivery Method Room Air MDM MDM MDM Narrative Medical decision making narrative: 26-year-old female here with concern for miscarriage vaginal bleeding in early . Abdominal exam was benign. Ultrasound obtained rule out ectopic . Ultrasound showed a live intrauterine but has a low heart rate. This concerning for demise. Patient's Rh+ no need for RhoGAM. Quant is appropriately elevating. 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 Lab results narrative: CBC without leukocytosis, severe anemia, no thrombocytopenia. BMP without evidence of significant electrolyte abnormalities, no anion gap, no acute kidney injury. Quant is elevated 6624 The patient is Rh+, no need for RhoGAM UA without evidence of inflammation or infection Labs: Laboratory Results - last 24 hr 03/11/22 03/11/22 03/11/22 17:55 17:55 17:55 WBC 4.6 RBC 4.21 Hgb 12.7 Hct 36.1 L MCV 85.7 MCH 30.2 MCHC 35.2 RDW Std Deviation 39.4 RDW Coeff of Christy 12.7 Plt Count 228 MPV 11.4 Immature Gran % (Auto) 0.200 Neut % (Auto) 61.3 Lymph % (Auto) 29.3 [place] % (Auto) 6.3 Eos % (Auto) 2.2 Baso % (Auto) 0.7 Absolute Neuts (auto) 2.8 Absolute Lymphs (auto) 1.35 Nucleated RBC % 0 Sodium 137 Potassium 3.6 Chloride 105 Carbon Dioxide 25.0 Anion Gap 7 BUN 9 Creatinine 0.86 Estim Creat Clear Calc 87.10 Est GFR (MDRD) Af Amer 103 Est GFR (MDRD) Non-Af 85 BUN/Creatinine Ratio 10.4 Glucose 107 H Calcium 9.1 HCG, Quant 6624 H Urine Color Urine Clarity Urine pH Ur Specific [place] Urine Protein Urine Glucose (UA) Urine Ketones Urine Occult Blood Urine Nitrite Urine Bilirubin Urine Urobilinogen Ur Leukocyte Esterase Urine RBC Urine WBC Ur Squamous Epith Cells Urine Bacteria Urine Mucus Blood Type 03/11/22 03/11/22 17:55 18:43 WBC RBC Hgb Hct MCV MCH MCHC RDW Std Deviation RDW Coeff of Christy Plt Count MPV Immature Gran % (Auto) Neut % (Auto) Lymph % (Auto) [place] % (Auto) Eos % (Auto) Baso % (Auto) Absolute Neuts (auto) Absolute Lymphs (auto) Nucleated RBC % Sodium Potassium Chloride Carbon Dioxide Anion Gap BUN Creatinine Estim Creat Clear Calc Est GFR (MDRD) Af Amer Est GFR (MDRD) Non-Af BUN/Creatinine Ratio Glucose Calcium HCG, Quant Urine Color Yellow Urine Clarity Clear Urine pH 6.5 Ur Specific [place] 1.010 Urine Protein Negative Urine Glucose (UA) Normal Urine Ketones 50 H Urine Occult Blood 10 H Urine Nitrite Negative Urine Bilirubin Negative Urine Urobilinogen Normal Ur Leukocyte Esterase 25 H Urine RBC 0 SEEN Urine WBC 0-5 SEEN Ur Squamous Epith Cells 0-5 SEEN Urine Bacteria RARE Urine Mucus 0 SEEN Blood Type O POSITIVE Radiography Diagnostic Testing: Clinical Impression(s) from Imaging Studies Obstetrics Ultrasound 03/11/22 18:27 IMPRESSION: 1. Single live intrauterine gestation with EGA 6 weeks 2 days. 2. heart rate less then 100 BPM is a risk factor for demise. Follow-up is recommended. Electronically Signed: Ana France MD at 19:45 EDT Reading Location ID and State: [email or web address] / Tel , Service support , Treatment and Re-Evaluation Narrative: Repeat abdominal exam is benign. Patient is appropriate for discharge home. 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 I recommend the next 2 days for repeat lab testing and possible repeat ultrasound Disposition Disposition: Home, Self Care
--- NOTE | 2022-03-11 18:27 | US_ITS ---
EXAM: US , TRANSVAGINAL CLINICAL INDICATION: vaginal bleeding early TECHNIQUE: Real-time transvaginal obstetrical ultrasound of the maternal pelvis and a first trimester with image documentation. Transvaginal imaging was used for better evaluation of the fetus and adnexa. This report was created using [employer] report generation technology. COMPARISON: 02/18/2022. FINDINGS: GESTATION: Gravid uterus is normal in size measuring 10.2 x 4.3 x 6.6 cm. Intrauterine gestational sac. Normal yolk sac. Single live intrauterine gestation. Cardiac activity is documented with heart rate of 96 BPM. Mean sonographic estimated gestational age based on crown-rump length measures 6 weeks 2 days. Estimated date of delivery 11/02/2022. PLACENTA/AMNIOTIC FLUID: Cannot be adequately evaluated due to the early gestational age. OVARIES: Right ovary is normal in size and echogenicity measuring 3.3 x 1.1 x 2 cm. No mass or dominant cyst. Left ovary is normal in size and echogenicity measuring 3 x 1.9 x 2.8 cm. No mass or dominant cyst. FREE FLUID: No free fluid. US/Transvaginal w/Preg US IMPRESSION: 1. Single live intrauterine gestation with EGA 6 weeks 2 days. 2. heart rate less then 100 BPM is a risk factor for demise. Follow-up is recommended. Electronically Signed: Ana France MD at 19:45 EDT Reading Location ID and State: [id number] / Tel , Service support ,
[2022-03-11 18:45] LABS: Absolute Lymphocyte Count 1.35 X10^3/uL (0.83-4.51); Absolute Neutrophil Count 2.8 X10^3/uL (2.0-7.7); Basophil# 0.03 X10^3/uL; Basophil% 0.7 % (0-1); Eosinophils% 2.2 % (0-5); Hematocrit 36.1 % (37-47); Hemoglobin 12.7 g/dL (12.0-15.0); Lymphocyte # 1.35 X10^3/ul (0.83-4.51); Lymphocyte % 29.3 % (19-41); Mean Corp Hgb Conc 35.2 g/dL (32-36); Mean Corpuscular Hgb 30.2 pg (27.0-32.0); Mean Corpuscular Volume 85.7 fL (81-99); Mean Platelet Vol. 11.4 fl (6.2-12.0); Monocyte# 0.29 X10^3/uL; Monocyte% 6.3 % (0-10); NRBC Flagged by Analyzer 0 % (0-5); Neutrophil # 2.82 X10^3/uL (2.7-7.7); Neutrophil % 61.3 % (47-70); Platelet Count 228 K/mm3 (150-450); RBC Distribution Width CV 12.7 % (11.6-14.6); RBC Distribution Width SD 39.4 fl (35.1-43.9); Red Blood Count 4.21 M/mm3 (4.2-5.4); White Blood Count 4.6 K/mm3 (4.4-11.0)
[2022-03-11 18:48] LABS: Mucous, Urine 0 SEEN /hpf (<or=2+); Red Blood Cells-Urine 0 SEEN /hpf (0-5)
[2022-03-11 18:58] LABS: Color, Urine Yellow (Yellow); Glucose, Dipstick Normal (Normal); Ketone-Dipstick 50 mg/dl (Negative); Leukocyte Esterase-Dipstick 25 /ul (Negative); Nitrite-Dipstick Negative (Negative); Occult Blood-Urine 10 /ul (Negative); Protein-Dipstick Negative (Negative); Urine Bilirubin Dipstick Negative (Negative); Urine Clarity Clear (Clear); Urine Urobilinogen Normal (Normal); Urine pH 6.5 (5.0 - 8.0)
[2022-03-11 19:03] LABS: Anion Gap 7 (5-15); BUN 9 mg/dL (7-18); BUN/Creat Ratio 10.4 RATIO (10-20); Calcium,Total 9.1 mg/dL (8.5-10.1); Chloride 105 mmol/L (98-107); Creatinine, Serum 0.86 mg/dL (0.55-1.02); EST Glomerular Filtration Rate 85 mL/min (>60); Est Glom Filt Rate - Afr Amer 103 mL/min (>60); Glucose 107 mg/dL (74-106); Potassium 3.6 mmol/L (3.5-5.1); Sodium Level 137 mmol/L (136-145)
[2022-03-11 19:08] LABS: Bacteria RARE /hpf (None Seen); Squamous Epithelial Cells - UA 0-5 SEEN /hpf (5-10); White Blood Cells 0-5 SEEN /hpf (0-5)
[2022-03-11 19:19] LABS: hCG Titer Quant., Serum 6624 mIU/mL (1-3)
== END 2022-03-11 21:14 | disposition home or self-care (01) ==
PROVIDERS: Emergency Provider Emergency Medicine; PCP Family Medicine; Visit Provider Emergency Medicine
DX: O20.0 Threatened abortion (principal); Z3A.01 Less than 8 weeks gestation of pregnancy
CPT/HCPCS: 76817; 80048; 81001; 84702; 85025; 86900; 86901; 99283; A4216

== ENCOUNTER → 2023-06-02 | Outpatient (CLI) | payer BC, SELFPAY | END | disposition home or self-care (01) | LOC: LABSPEC 10:09 | PROVIDERS: PCP Family Medicine; Referring Provider Registered Nurse; Visit Provider Registered Nurse | DX: Z34.90 Encounter for supervision of normal pregnancy, unspecified, unspecified trimester (principal) | CPT/HCPCS: 87086; 87088 ==

== ENCOUNTER → 2023-06-14 | Outpatient (CLI) | payer BC, SELFPAY ==
[2023-06-14 11:01] LABS: Absolute Lymphocyte Count 0.92 X10^3/uL (0.83-4.51); Absolute Neutrophil Count 2.4 X10^3/uL (2.0-7.7); Basophil# 0.03 X10^3/uL; Basophil% 0.8 % (0-1); Eosinophil# 0.08 X10^3/uL; Eosinophils% 2.2 % (0-5); Hematocrit 33.6 % (37-47); Hemoglobin 11.6 g/dL (12.0-15.0); Lymphocyte # 0.92 X10^3/ul (0.83-4.51); Lymphocyte % 24.8 % (19-41); Mean Corp Hgb Conc 34.5 g/dL (32-36); Mean Corpuscular Volume 86.8 fL (81-99); Mean Platelet Vol. 11.6 fl (6.2-12.0); Monocyte# 0.24 X10^3/uL; Monocyte% 6.5 % (0-10); NRBC Flagged by Analyzer 0 % (0-5); Neutrophil # 2.44 X10^3/uL (2.7-7.7); Neutrophil % 65.7 % (47-70); Platelet Count 183 K/mm3 (150-450); RBC Distribution Width SD 41.1 fl (35.1-43.9); Red Blood Count 3.87 M/mm3 (4.2-5.4); White Blood Count 3.7 K/mm3 (4.4-11.0)
[2023-06-14 11:46] LABS: Hemoglobin A1c 4.4 % (3.8-5.6)
[2023-06-14 12:14] LABS: HIV - WCH Non-Reactive (Nonreactive); Hepatitis B Surface Antigen Non-Reactive (Nonreactive); Hepatitis C Antibody Non-Reactive (Nonreactive); Rubella IgG Reactive (Nonreactive); Syphilis Antibodies Non-reactive
== END | disposition home or self-care (01) ==
LOC: PAVLAB 10:31
PROVIDERS: PCP Family Medicine; Referring Provider Registered Nurse; Visit Provider Registered Nurse
DX: Z34.81 Encounter for supervision of other normal pregnancy, first trimester (principal)
CPT/HCPCS: 36415; 83036; 85025; 86703; 86762; 86780; 86803; 86850; 86900; 86901; 87340

== ENCOUNTER 2023-06-21 12:41 | Day surgery (SDC) | payer BC, SELFPAY ==
[2023-06-21] VITALS (7 sets, daily range): BP systolic 99–127; BP diastolic 68–90; PULSE 56–85; RESP 16; TEMP 36.6–37; O2SAT 98–100; BMI 33.3
[2023-06-21] MEDS: Doxycycline 100 MG CAPSULE PO (12:00)
--- OUTSIDE RECORDS SUMMARY | 2023-06-21 13:06 | XMS RPT_ITS | CCD ---
Author Name Unknown Address [address] [place] [address] Organization [facility] Care Team Providers Care Microcomputer Support Specialist Name Role Phone AIDEN QUINTEROS Unavailable Unavailable DEORAS, SHIVANI S Unavailable Unavailable AIDEN QUINTEROS Unavailable Unavailab le [place], Kvng W Unavailable Unavailable Katie, Kvng W Unavailable Unavailable No Doctor Assigned, Nodr Unavailable Unavail able DEORAS, SHIVANI S Attending Unavailable REFERRED, SELF Referring Unavailable DEORAS, SHIVANI S Primary Care Unavailable DANITA KUMAR Referring Unavailabl e DEORAS, SHIVANI S Primary Care Unavailable OCTAVIO DIAZ Attending Unavailable JACLYN RIZO Attending Unavailable DANITA KUMAR Referring Unavailabl e DEORAS, SHIVANI S Primary Care Unavailable Deoras, Shivani S Primary Care Provider Deoras, Shivani Juan Pablo Primary Care Provider [phone] Christian Baron DO F Primary Care Provider [phone] CONNOR LOYA Attending Unavailable SHARAD, CHRISTIAN Primary Care Unavailable CONNOR LOYA Referring Unavailable CHRISTIAN BARON Primary Care Unavailable CONNOR LOYA Attending Unavailable BARRY WRIGHT Attending Unavailable SHARAD, CHRISTIAN Primary Care Unavailable DEORAS, SHIVANI JUAN PABLO Primary Care Unavailable LYNDSEY SANCHEZ Attending Unavailable DEORAS, SHIVANI JUAN PABLO Primary Care Unavailable STERLING SIMPSON Referring Unavail able DEORAS, SHIVANI JUAN PABLO Primary Care Unavailable STERLING SIMPSON Attending Unavail able DEORAS, SHIVANI JUAN PABLO Primary Care Unavailable DAR, YAN Referring Unavailable DAR, YAN Attending Unavailable DEORAS, SHIVANI JUAN PABLO Primary Care Unavailable DAR, YAN Attending Un[facility] Unavailable NATHAN CORDON Referring Unavailable [facility] Unavailable NATHAN CORDON Referring Unavailable [facility] Primary [facility] Unavailable AMAYA DEMARCO Attending Unavailable Allergies Allergy Classification Reported Allergen(s) Allergy Type Date of Onset Reaction(s) Facility (1 source) No Known Medication Allergies; Translations: [No Known Medication Allergies] Propensity to adverse reactions to drug (disorder) [facility] Repository Medications Current Medications Medication Drug Class(es) Dates Sig (Normalized) Sig (Original) [id number] 200 actuat albuterol 0.09 mg/actuat metered dose inhaler (3 sources) beta2-Adrenergic Agonist Start: 05-10-2023 End: 06-09-2023 take 2 puff(s) by inhalation every four hours as needed for wheezing albuterol 108 (90 Base) MCG/ACT inhaler Inhale 2 puffs every 4 hours as needed for wheezing. 18 g 0 05/10/2023 06/09/2023 Active Completed/Discontinued Medications Medication Drug Class(es) Dates Sig (Normalized) Sig (Original) acetaminophen 500 mg oral tablet (1 source) Start: 05-15-2020 End: 05-15-2020 acetaminophen (TYLENOL) tablet 1,000 mg dexamethasone phosphate 10 mg/ml injectable solution (1 source) Corticosteroid Start: 05-15-2020 End: 05-15-2020 dexamethasone (DECADRON) injection 10 mg famotidine 40 mg oral tablet (5 sources) Histamine-2 Receptor Antagonist Start: 08-22-2015 famotidine (PEPCID) 40 mg tablet Lactobacillus acidophilus (3 sources) Lactobacillus acidophilus (PROBIOTIC ORAL) Take by mouth. 0 Active Problems Active Problems Problem Classification Problem Date Documented Date Episodic/Chronic Abdominal pain (1 source) Pelvic and perineal pain; Translations: [Pelvic pain during ] Onset: 05-12-2023 Episodic Headache; including migraine (1 source) Headache disorder; Translations: [Headache disorder] Episodic Immunizations and screening for infectious disease (1 source) Infectious disease carrier; Translations: [Carrier of other specified bacterial diseases] Episodic Other complications of (1 source) Other specified related conditions, unspecified trimester; Translations: [Pelvic pain during ] Onset: 05-12-2023 Episodic Other female genital disorders (2 sources) Vaginal discharge; Translations: [Other specified noninflammatory disorders of vagina] Episodic Other female genital disorders (1 source) Vulval irritation; Translations: [Other specified noninflammatory disorders of vulva and perineum] Episodic Other female genital disorders (1 source) Vaginal irritation; Translations: [Other specified noninflammatory disorders of vagina] Episodic Other lower respiratory disease (3 sources) Pleuritic pain; Translations: [Pleurodynia] Onset: 02-23-2023 02-23-2023 Episodic Other lower respiratory disease (2 sources) Cough; Translations: [Acute cough] 05-10-2023 Episodic Other lower respiratory disease (1 source) Pleurodynia; Translations: [Pleurodynia] Onset: 02-23-2023 Episodic Other and delivery including normal (1 source) Encounter for supervision of normal , unspecified, first trimester; Translations: [ with uncertain dates in first trimester] Onset: 05-24-2023 Episodic Residual codes; unclassified (1 source) Less than 8 weeks gestation of ; Translations: [6 weeks gestation of ] Onset: 05-12-2023 Episodic Unclassified (1 source) Unknown / UNK(Unknown) Onset: 05-22-2017 Unclassified (1 source) Unspecified lump in unspecified breast; Translations: [Unspecified lump in unspecified breast] Onset: 05-22-2017 Unclassified (1 source) Knee joint finding; Translations: [Other specified joint disorders, left knee] Onset: 07-31-2016 07-31-2016 Unclassified (1 source) Acute cough; Translations: [Acute cough] Onset: 05-10-2023 Past or Other Problems Problem Classification Problem Date Documented Date Episodic/Chronic Diseases of mouth; excluding dental (5 sources) Mass of tongue; Translations: [Other diseases of tongue] Onset: 05-02-2021 02-19-2022 Episodic Heart valve disorders (5 sources) Heart murmur; Translations: [Cardiac murmur, unspecified] Onset: 01-07-2022 02-19-2022 Episodic Malaise and fatigue (5 sources) Fatigue; Translations: [Other fatigue] Onset: 05-02-2021 02-19-2022 Episodic Other female genital disorders (2 sources) Other specified noninflammatory disorders of vagina; Translations: [Vaginal discharge] Onset: 10-28-2022 Episodic Other female genital disorders (1 source) Other specified noninflammatory disorders of vulva and perineum; Translations: [Vulvar irritation] Onset: 06-29-2022 Episodic Other non-traumatic joint disorders (5 sources) Knee joint finding; Translations: [Other specified joint disorders, left knee] Onset: 07-31-2016 02-19-2022 Episodic Other nutritional; endocrine; and metabolic disorders (5 sources) Weight gain; Translations: [Abnormal weight gain] Onset: 05-02-2021 02-19-2022 Episodic Residual codes; unclassified (5 sources) Family history of breast cancer; Translations: [Family history of malignant neoplasm of breast] Onset: 04-30-2021 02-19-2022 Episodic Unclassified (1 source) Unspecified lump in unspecified breast Onset: 05-22-2017 Unclassified (1 source) Acute cough; Translations: [Acute cough] Onset: 05-10-2023 Results Test Name Value Interpretation Reference Range Facil ity Vital Signs Date Time Vital Sign Value Performing Clinician Facility 05-10-2023 10:50-0500 Body height 165.1 cm Barry Wright MD Work Phone: [employer] [facility] 05-10-2023 10:50-0500 Body mass index (BMI) [Ratio] 32.45 kg/m2 Barry Wright MD Work Phone: [employer] [facility] 05-10-2023 10:50-0500 Body temperature 98.01 [degF] Barry Wright MD Work Phone: [employer] [facility] 05-10-2023 10:50-0500 Body weight 88.45 kg Barry Wright MD Work Phone: [employer] [facility] 05-10-2023 10:50-0500 Diastolic blood pressure 85 mm[Hg] Barry Wright MD Work Phone: [employer] [facility] 05-10-2023 10:50-0500 Heart rate 97 /min Barry Wright MD Work Phone: [employer] [facility] 05-10-2023 10:50-0500 Respiratory rate 14 /min Barry Wright MD Work Phone: [employer] [facility] 05-10-2023 10:50-0500 SaO2% (BldA) [Mass fraction] 100 % Barry Wright MD Work Phone: [employer] [facility] 05-10-2023 10:50-0500 Systolic blood pressure 134 mm[Hg] Barry Wright MD Work Phone: [employer] [facility] 02-23-2023 08:13-0400 Body height 162.6 cm Connor Loya PA-C Work Phone: [employer] 02-23-2023 08:13-0400 Body mass index (BMI) [Ratio] 35.02 kg/m2 Connor Loya PA-C Work Phone: [employer] [facility] 02-23-2023 08:13-0400 Body temperature 99.1 [degF] Connor Loya PA-C Work Phone: [employer] 02-23-2023 08:13-0400 Body weight 92.53 kg Connor Loya PA-C Work Phone: [employer] 02-23-2023 08:13-0400 Diastolic blood pressure 72 mm[Hg] Connor Loya PA-C Work Phone: [employer] [facility] 02-23-2023 08:13-0400 Heart rate 76 /min Connor Loya PA-C Work Phone: [employer] 02-23-2023 08:13-0400 SaO2% (BldA) [Mass fraction] 100 % Connor Loya PA-C Work Phone: [employer] 02-23-2023 08:13-0400 Systolic blood pressure 111 mm[Hg] Connor Loya PA-C Work Phone: [employer] [facility] 10-28-2022 10:28-0400 Body weight 91.17 kg Lyndsey Sanchez APRN.CNM Work Phone: [facility] 10-28-2022 10:28-0400 Diastolic blood pressure 64 mm[Hg] Lyndsey Sanchez APRN.CNM Work Phone: [facility] 10-28-2022 10:28-0400 Systolic blood pressure 108 mm[Hg] Lyndsey Sanchez APRN.CNCharlie Work Phone: [facility] 06-29-2022 13:37-0500 Body weight 89.81 kg Sterling Riggs MD Work Phone: [facility] 06-29-2022 13:37-0500 Diastolic blood pressure 70 mm[Hg] Sterling Riggs MD Work Phone: [facility] 06-29-2022 13:37-0500 Systolic blood pressure 110 mm[Hg] Sterling Riggs MD Work Phone: [facility] 05-15-2020 10:35-0500 BMI (Body Mass Index) 31.45 kg/m2 [facility], [place] 05-15-2020 10:35-0500 Body Temperature 97.81 [degF] [facility], [place] 05-15-2020 10:35-0500 Body weight 85.73 kg [place], [place] 05-15-2020 10:35-0500 BP Diastolic 89 mm[Hg] [place] 05-15-2020 10:35-0500 BP Systolic 127 mm[Hg] [place] 05-15-2020 10:35-0500 Height 165.1 cm [place] 05-15-2020 10:35-0500 Pulse (Heart Rate) 84 /min [place], [place] 05-15-2020 10:35-0500 Pulse Oximetry 100 % [place] 05-15-2020 10:35-0500 Respiratory Rate 14 /min [place], [place] Encounters Encounter Date Encounter Type Care Provider Facility Start: 05-24-2023 End: 05-24-2023 ambulatory SHIVANI JUAN PABLO POWERS Facility:[facility] Start: 05-12-2023 End: 05-13-2023 ambulatory SHIVANI JUAN PABLO POWERS Facility:[facility] Start: 05-10-2023 End: 05-10-2023 Emergency department patient visit BARRY WRIGHT [facility] Start: 05-10-2023 End: 05-10-2023 Emergency department patient visit Barry Wright MD Work Phone: [facility] ED Procedures Date Procedure Procedure Detail Performing Clinician Start: 02-23-2023 Radiologic exam ches t 2 views Connor Loya PA-C Work Phone: Start: 10-28-2022 [place]na trichomonas vaginalis amplified probe tech Lyndsey Sanchez APRN.CNM Work Phone: Plan of Treatment Date Care Activity Detail Author Start: 2057 RSV Immunization age d 60 or older (1 - 1-dose 60+ series) RSV Immunization aged 60 or older (1 - 1-dose 60+ series) [facility] Start: 2047 Zoster Vaccines (1 of 2) Zoster Vacc gina (1 of 2) [facility] Start: 09-13-2028 DTaP/Tdap/Td Vaccine s (3 - Td or Tdap) DTaP/Tdap/Td Vaccines (3 - Td or Tdap) [facility] Start: 02-23-2023 End: 02-24-2024 CBC W Auto Differential panel - Blood CBC auto differential Lab Routine Pleurodynia Expected: 02/23/2023 (Approximate), Expires: 02/24/2024 [facility] Work Phone: Payers Date Payer Category Payer Unknown [id number] 2021 Unknown [id number] 2021 Unknown [id number] 2017 Unknown [id number] 2016 Unknown 1997 Unknown [id number] 1995 Unknown [id number] Unknown [id number] Social History Date Type Detail Facility Start: 05-15-2020 End: 03-18-2022 Tobacco smoking status NHIS Never smoker [facility] Start: 05-15-2020 End: 03-18-2022 Tobacco use and exposure Never used [facility] Start: 05-15-2020 End: 05-10-2023 Alcohol intake Current non-drinker of alcohol (finding) [facility] Start: 03-21-2018 [place], [place] Start: 1995 Sex Assigned At Not on file [place], [place] Exposure to SARS-CoV -2 (event) Not sure [place], [place] Start: 10-28-2022 End: 05-10-2023 History of Social function [facility] Start: 10-28-2022 End: 05-10-2023 Tobacco use panel [facility] National Score (1-10 0), lower number is lower risk 77 [facility] Clinical Notes 06-01-2022 to 05-24-2023 Barry Wright MD - 05/10/2023 10:37 AM Estela Caban RN - 05/10/2023 10:37 AM Estela Caban RN - 05/10/2023 10:37 AM Pawel Wright MD - 05/10/2023 10:37 AM EST Note Date & Type Note Facility 05-24-2023 Note HNO ID: [id number] Author: YAN DODGE APRN.[employer]CHANIC Service: ? Author Type: Nurse Practitioner Type: Progress Notes Filed: 05/24/2023 09:11 Note Text: OB point of care ultrasound was performed. See imaging tab for details. Belle Coker LPN INITIAL OB ASSESSMENT HPI: Delma is a 28 year old White here to establish Obstetrical Care. Patient's last menstrual period was 03/31/2023 (exact date). from OB Dating Form. Do you have regular periods/menstrual cycles? Yes was unplanned but accepted Complaints: (!) Severe nausea/vomiting OB History T0 L1 SAB0 IAB0 Ectopic0 Multiple0 Live Births1 How many pregnancies have you had before? 3 Have you had a prior ramon between 20w and 36w6d? No Did you present in active spontaneous labor or have ruptured membranes, or advanced cervical dilation (greater than or equal to 4 cm) or effacement? No Did you have a previous baby with a GBS Infection? No Please select all that apply for any prior : N/A Did you have a partner with Herpes? No Prior : never History of 4th degree laceration: No Patient's Risk Screening for delivery: low 1st - vaginal delivery with no complications MEDICAL/PSYCHOSOCIAL HISTORY: History of hemorrhage or bleeding concerns: No Thyroid Disease: No History of chronic hypertension: No History of pre-existing diabetes: No BMI 32.68 kg/(m2) History of abnormal pap: No Prior treatment for cervical dysplasia: none. History of STDs: None Tobacco use: No E-Cigarette/Vaping Use: Yes Caffeine use: No Drug use: No Alcohol use: No Multivitamin with Folic acid: No Shinto or heritage: No Would refuse blood transfusion if medically necessary: No No results found for: ABORHD Social Needs: How often does this describe you? I don't have enough money to pay my bills: Never Within the past 12 months, have you worried that your food would run out before you had money to buy more? Never In the past 12 months, has lack of reliable transportation kept you from going to medical appointments or work, or from getting things needed for daily living? Never In the past 12 months, have you had any concerns about having a place to live, or about the condition or quality of your housing? Never Would you like more information on any of the following (please check all that apply)? Social History: Do you have any history of depression, anxiety, PTSD, or other mood problems? Yes Do you have a history of abuse or trauma that may impact your experience? No Are you currently employed? Yes Depression/Anxiety Screening: denies symptoms of depression. OB Depression and Anxiety Screening- This Encounter (since 05/23/2023) Over the past 2 weeks have you felt down, depressed, or hopeless? Positive - Further Testing Indicated Over the past two weeks, have you felt little interest or pleasure in doing things?? Positive - Further Testing Indicated I have been able to laugh and see the funny side of things. As much as I always could I have looked forward with enjoyment to things. Rather less than I used to I have blamed myself unnecessarily when things went wrong. No, never I have been anxious or worried for no good reason. Yes, sometimes I have felt scared or panicky for no good reason. Yes, sometimes Things have been getting on top of me. No, I have been coping as well as ever I have been so unhappy that I have had difficulty sleeping. Yes, sometimes I have been so unhappy that I have been crying. Only occasionally The thought of harming myself has occurred to me. Never Feeling nervous, anxious or on edge 1-Several days Not being able to stop or control worrying 1-Several days Anxiety Pre-Screening Total (If >/= 3 additional questions will be reviewed) 2 ACOG Recommended Screening: Screening for early gestational diabetes testing: Criteria for early testing requires elevated BMI plus one other risk factor: BMI 32.68 kg/(m2) (risk factor if > than 25 or 23 in Americans) Additional risk factors: None She does not meet ACOG criteria for early gestational DM screening. 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 [facility] 05-10-2023 Emergency department Note [facility] ED EMERGENCY DEPARTMENT ENCOUNTER Pt Name: Delma Jaramillo Birthdate 1995 Date of evaluation: 05/10/2023 Provider: Barry Wright MD CHIEF COMPLAINT Chief Complaint Patient presents with Cough HISTORY OF PRESENT ILLNESS (Location/Symptom, Timing/Onset,Context/Setting, Quality, Duration, Modifying Factors, Severity) Note limiting factors. Delma Jaramillo is a 28 y.o. female who presents to the emergency department with cough for weeks. To the point where it keeps her up at night. She did okay taking fluids. She reports no fevers or chills. No back pain. No neck pain. Going on for 4 weeks. She is 6 weeks . No diarrhea. No vomiting. She has been on Augmentin. She completed that. Trying [id number] medications not helping. HPI Historian is the patient Nurse's notes for past medical history, surgical history, social history were reviewed. Medications and allergies reviewed. PAST MEDICAL HISTORY Past Medical History: Diagnosis Date COVID 4 episodes, october 2021 Family history of breast cancer Headache Heart murmur hx of heart mumur Left knee pain PONV (postoperative nausea and vomiting) SURGICALHISTORY Past Surgical History: Procedure Laterality Date KNEE ARTHROSCOPY Left 07/31/2016 L Knee Arthroscopy with debridement of scar tissue KNEE SURGERY Left 2014 WISDOM TOOTH EXTRACTION CURRENT MEDICATIONS Previous Medications No medications on file Patient has no known allergies. FAMILY HISTORY Family History Problem Relation Name Age of Onset High Blood Pressure Mother Arthritis Mother Rheumatoid arthritis Migraines Mother Deep vein thrombosis Mother High Blood Pressure Father Migraines Mother's Sister Seizures Mother's Sister Breast cancer Maternal Grandmother 52 Migraines Maternal Grandmother 52 Cancer Maternal Grandfather 62 Small cell of the lung Other ([address]) Paternal Grandmother 51 Chronic obstructive pulmonary disease Diabetes Paternal Grandmother 51 Heart attack Paternal Grandfather 48 SOCIAL HISTORY Social History Socioeconomic History Marital status: Tobacco Use Smoking status: Never Smokeless tobacco: Never Vaping Use Vaping Use: Former Substance and Sexual Activity Alcohol use: No Drug use: No 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 Physical Exam Vital signs reviewed general: Alert and oriented 3 head: Atraumatic eyes: Equal round reactive to light and accommodating, pupils are equal, round and reactive to light and accommodation TMs clear bilaterally oropharynx: Clear and well hydrated slight erythema but no signs of exudate or unequal swelling neck: Supple heart: Regular rate and rhythm, no murmurs lungs: Clear to auscultation bilaterally abdomen: Soft nontender, positive bowel sounds, no peritoneal findings. Extremities: Moving all fours, no tenderness. Normal capillary refill. Skin: No rash or lesions -to the exposed skin neurologically: Alert and oriented 3, no focal deficit DIAGNOSTIC RESULTS RADIOLOGY: Interpretation per the Radiologist below, if availableat the time of this note: No orders to display ED BEDSIDE ULTRASOUND: Performed by ED Physician - none LABS: Labs Reviewed - No data to display All other labs were within normal range or not returned as of thisdictation. EMERGENCYDEPARTMENT COURSE and DIFFERENTIAL DIAGNOSIS/MDM: Vitals: Vitals: 05/10/23 1050 BP: 134/85 Pulse: 97 Resp: 14 Temp: 36.7 C (98 F) TempSrc: Oral SpO2: 100% Weight: 88.5 kg (195 lb) Height: 1.651 m (5' 5 ) Medical Decision Making Risk Prescription drug management. EMERGENCY DEPARTMENT COURSE and DIFFERENTIAL DIAGNOSIS/MDM: Vitals: Vitals: 05/10/23 1050 BP: 134/85 Pulse: 97 Resp: 14 Temp: 36.7 C (98 F) TempSrc: Oral SpO2: 100% Weight: 88.5 kg (195 lb) Height: 1.651 m (5' 5 ) The patient presented with a chief complaint of cough. The differential diagnosis associated with this patient's presentation includes COVID, pneumonia, influenza, viral illness, reactive airway. Our workup consisted of ordering/reviewing none. Patient had this for 4 weeks. Do not believe COVID or influenza testing is indicated. Does not gotten better with antibiotics. She is 6 weeks so her lungs are clear and do not want to do an x-ray with her being . Will treat her symptomatically with prednisone 60 mg here then 40 mg a day for 5 days. Albuterol inhaler. Follow with her doctor in 1 week return here if any problems or concerns. Patient agrees to this. She is nontoxic. Diagnoses as of 05/10/23 1057 Acute cough Diagnostics considered but not indicated based on history, physical, testing: Chest x-ray however deferred lungs are clear and she is External records reviewed: Urgent care records reviewed from 04/28/2023 Radiologic diagnostics interpreted by me: film images such as CT, Ultrasound and MRI are read by the radiologist. Plain radiographic images are visualized and preliminarily interpreted by the emergency physician with the below findings: None Discussions with other clinicians: None Chronic conditions impacting care: None Social determinants of health affecting care: Patient is 6 weeks Shared decision making: Patient agrees to treatment plan ED Medications managed: Medications predniSONE (Deltasone) tablet 60 mg (has no administration in time range) Prescription drugs considered: Prednisone 40 mg daily for 5 days albuterol inhaler as needed PROCEDURES: Unless otherwise noted below, none Procedures IMPRESSION 1. Acute cough DISPOSITION/PLAN DISPOSITION Discharge 05/10/2023 10:56:57 AM PATIENT REFERRED TO: Christian Baron DO [address] [facility] [phone] In 1 week DISCHARGE MEDICATIONS: New Prescriptions ALBUTEROL 108 (90 BASE) MCG/ACT INHALER Inhale 2 puffs every 4 hours as needed for wheezing. PREDNISONE (DELTASONE) 20 MG TABLET Take 2 tablets (40 mg) by mouth daily for 5 days. Start tomorrow in the a.m. @[facility]([id number]:LAST:1) @ (Comment: Please notethis report has been produced using speech recognition software and may contain errors related to that system including errors in grammar, punctuation, and spelling, as well as words and phrases that may be inappropriate.If there is any questions or concerns please feel free to contact the dictating provider for clarification). Barry Wright MD (electronically signed) Attending Emergency Physician Barry Wright MD 05/10/23 1057 Steady gait to room 4. States has had a sore throat for 4 weeks. Recently finished amoxicillin that was given by urgent care about 2 weeks ago. Also with productive cough and congestion. No shortness of breath or drooling. Reports being about 6 weeks -[id number] documented in this encounter [facility] 05-10-2023 Emergency department Triage note Steady gait to room 4. States has had a sore throat for 4 weeks. Recently finished amoxicillin that was given by urgent care about 2 weeks ago. Also with productive cough and congestion. No shortness of breath or drooling. Reports being about 6 weeks -[id number] [employer] 05-10-2023 Physician Emergency department Note [facility] ED EMERGENCY DEPARTMENT ENCOUNTER Pt Name: Delma Jaramillo Birthdate 1995 Date of evaluation: 05/10/2023 Provider: Barry Wright MD CHIEF COMPLAINT Chief Complaint Patient presents with Cough HISTORY OF PRESENT ILLNESS (Location/Symptom, Timing/Onset,Context/Setting, Quality, Duration, Modifying Factors, Severity) Note limiting factors. Delma Jaramillo is a 28 y.o. female who presents to the emergency department with cough for weeks. To the point where it keeps her up at night. She did okay taking fluids. She reports no fevers or chills. No back pain. No neck pain. Going on for 4 weeks. She is 6 weeks . No diarrhea. No vomiting. She has been on Augmentin. She completed that. Trying urga-xsu-heucaff medications not helping. HPI Historian is the patient Nurse's notes for past medical history, surgical history, social history were reviewed. Medications and allergies reviewed. PAST MEDICAL HISTORY Past Medical History: Diagnosis Date COVID 4 episodes, october 2021 Family history of breast cancer Headache Heart murmur hx of heart mumur Left knee pain PONV (postoperative nausea and vomiting) SURGICALHISTORY Past Surgical History: Procedure Laterality Date KNEE ARTHROSCOPY Left 07/31/2016 L Knee Arthroscopy with debridement of scar tissue KNEE SURGERY Left 2014 WISDOM TOOTH EXTRACTION CURRENT MEDICATIONS Previous Medications No medications on file Patient has no known allergies. FAMILY HISTORY Family History Problem Relation Name Age of Onset High Blood Pressure Mother Arthritis Mother Rheumatoid arthritis Migraines Mother Deep vein thrombosis Mother High Blood Pressure Father Migraines Mother's Sister Seizures Mother's Sister Breast cancer Maternal Grandmother 52 Migraines Maternal Grandmother 52 Cancer Maternal Grandfather 62 Small cell of the lung Other ([id number]) Paternal Grandmother 51 Chronic obstructive pulmonary disease Diabetes Paternal Grandmother 51 Heart attack Paternal Grandfather 48 SOCIAL HISTORY Social History Socioeconomic History Marital status: Tobacco Use Smoking status: Never Smokeless tobacco: Never Vaping Use Vaping Use: Former Substance and Sexual Activity Alcohol use: No Drug use: No 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 Physical Exam Vital signs reviewed general: Alert and oriented 3 head: Atraumatic eyes: Equal round reactive to light and accommodating, pupils are equal, round and reactive to light and accommodation TMs clear bilaterally oropharynx: Clear and well hydrated slight erythema but no signs of exudate or unequal swelling neck: Supple heart: Regular rate and rhythm, no murmurs lungs: Clear to auscultation bilaterally abdomen: Soft nontender, positive bowel sounds, no peritoneal findings. Extremities: Moving all fours, no tenderness. Normal capillary refill. Skin: No rash or lesions -to the exposed skin neurologically: Alert and oriented 3, no focal deficit DIAGNOSTIC RESULTS RADIOLOGY: Interpretation per the Radiologist below, if availableat the time of this note: No orders to display ED BEDSIDE ULTRASOUND: Performed by ED Physician - none LABS: Labs Reviewed - No data to display All other labs were within normal range or not returned as of thisdictation. EMERGENCYDEPARTMENT COURSE and DIFFERENTIAL DIAGNOSIS/MDM: Vitals: Vitals: 05/10/23 1050 BP: 134/85 Pulse: 97 Resp: 14 Temp: 36.7 C (98 F) TempSrc: Oral SpO2: 100% Weight: 88.5 kg (195 lb) Height: 1.651 m (5' 5 ) Medical Decision Making Risk Prescription drug management. EMERGENCY DEPARTMENT COURSE and DIFFERENTIAL DIAGNOSIS/MDM: Vitals: Vitals: 05/10/23 1050 BP: 134/85 Pulse: 97 Resp: 14 Temp: 36.7 C (98 F) TempSrc: Oral SpO2: 100% Weight: 88.5 kg (195 lb) Height: 1.651 m (5' 5 ) The patient presented with a chief complaint of cough. The differential diagnosis associated with this patient's presentation includes COVID, pneumonia, influenza, viral illness, reactive airway. Our workup consisted of ordering/reviewing none. Patient had this for 4 weeks. Do not believe COVID or influenza testing is indicated. Does not gotten better with antibiotics. She is 6 weeks so her lungs are clear and do not want to do an x-ray with her being . Will treat her symptomatically with prednisone 60 mg here then 40 mg a day for 5 days. Albuterol inhaler. Follow with her doctor in 1 week return here if any problems or concerns. Patient agrees to this. She is nontoxic. Diagnoses as of 05/10/23 1057 Acute cough Diagnostics considered but not indicated based on history, physical, testing: Chest x-ray however deferred lungs are clear and she is External records reviewed: Urgent care records reviewed from 04/28/2023 Radiologic diagnostics interpreted by me: film images such as CT, Ultrasound and MRI are read by the radiologist. Plain radiographic images are visualized and preliminarily interpreted by the emergency physician with the below findings: None Discussions with other clinicians: None Chronic conditions impacting care: None Social determinants of health affecting care: Patient is 6 weeks Shared decision making: Patient agrees to treatment plan ED Medications managed: Medications predniSONE (Deltasone) tablet 60 mg (has no administration in time range) Prescription drugs considered: Prednisone 40 mg daily for 5 days albuterol inhaler as needed PROCEDURES: Unless otherwise noted below, none Procedures IMPRESSION 1. Acute cough DISPOSITION/PLAN DISPOSITION Discharge 05/10/2023 10:56:57 AM PATIENT REFERRED TO: Christian Baron DO [address] [facility] [address] In 1 week DISCHARGE MEDICATIONS: New Prescriptions ALBUTEROL 108 (90 BASE) MCG/ACT INHALER Inhale 2 puffs every 4 hours as needed for wheezing. PREDNISONE (DELTASONE) 20 MG TABLET Take 2 tablets (40 mg) by mouth daily for 5 days. Start tomorrow in the a.m. @[facility]([id number]:LAST:1) @ (Comment: Please notethis report has been produced using speech recognition software and may contain errors related to that system including errors in grammar, punctuation, and spelling, as well as words and phrases that may be inappropriate.If there is any questions or concerns please feel free to contact the dictating provider for clarification). Barry Wright MD (electronically signed) Attending Emergency Physician Barry Wright MD 05/10/23 1057 [facility] 04-28-2023 Note HNO ID: [id number] Author: Amaya Demarco APRN.[facility] Service: ? Author Type: Nurse Practitioner Type: Progress Notes Filed: 04/28/2023 9:31 AM Note Text: This note was created using NoteWriter. Subjective Delma Jaramillo is a 27 year old female. HPI by patient: Delma Jaramillo is a 27 year old presenting to the office with the complaint of viral symptoms. Started approximately 7-8 days ago, better then worse again Wednesday. Associated symptoms include cough, congestion, body aches, fatigue, sore throat, and bilateral ear pain. States she feels like she got hit by a truck last Wednesday. Denies gi symptoms. Covid Immunization Dates Overdue - Covid-19 Vaccine (1) Never done No completion, postpone, frequency change, or communication history exists for this topic. Sick contacts: yes. Smoking history/second hand smoke: none. OTC not helping. No antibiotic use in the last 60 days. ALLERGIES No Known Allergies Family History Reviewed Including Cardiac Diseases, Psychiatric Diseases, AND Substance Abuse Problem: Breast Cancer Relation: Maternal Grandmother Age of Onset: (Not Specified) Problem: other (Cancer - other [Other]) Relation: Maternal Grandfather Age of Onset: (Not Specified) Problem: Hypertension Relation: Mother Age of Onset: (Not Specified) Problem: other (Lung cancer [Other]) Relation: Maternal Grandmother Age of Onset: (Not Specified) Social History Tobacco Use Smoking status: Never Smokeless tobacco: Never Alcohol use: No Comment: Non-drinker Drug use: No Active Ambulatory Problems No Active Ambulatory Problems Resolved Ambulatory Problems No Resolved Ambulatory Problems Past Medical History: No date: ACL (anterior cruciate ligament) tear No date: Dysfunctional uterine bleeding No date: Dysmenorrhea Review of Systems Constitutional: Positive for chills and fatigue. Negative for fever. HENT: Positive for congestion, ear pain and sore throat. Eyes: Negative. Respiratory: Positive for cough. Cardiovascular: Negative. Gastrointestinal: Negative. Endocrine: Negative. Genitourinary: Negative. Musculoskeletal: Positive for myalgias. Skin: Negative. Neurological: Positive for headaches. Hematological: Negative. Objective BP 122/65 Pulse 77 Temp 36.9 ?C (98.4 ?F) (Tympanic) Resp 16 Ht 165.1 cm (5' 5 ) Wt 90.3 kg (199 lb 1.2 oz) LMP 10/01/2022 (Exact Date) SpO2 100% BMI 33.13 kg/m? Physical Exam Vitals reviewed. Constitutional: General: She is not in acute distress. Appearance: She is not ill-appearing, toxic-appearing or diaphoretic. HENT: Head: Normocephalic and atraumatic. Right Ear: Tympanic membrane, ear canal and external ear normal. Left Ear: Tympanic membrane, ear canal and external ear normal. Nose: Nose normal. Right Sinus: No maxillary sinus tenderness or frontal sinus tenderness. Left Sinus: No maxillary sinus tenderness or frontal sinus tenderness. Mouth/Throat: Mouth: Mucous membranes are moist. Pharynx: Oropharynx is clear. No oropharyngeal exudate or posterior oropharyngeal erythema. Cardiovascular: Rate and Rhythm: Normal rate and regular rhythm. Pulmonary: Effort: Pulmonary effort is normal. Breath sounds: Normal breath sounds. Lymphadenopathy: Head: Right side of head: No submandibular or tonsillar adenopathy. Left side of head: No submandibular or tonsillar adenopathy. Cervical: No cervical adenopathy. Psychiatric: Behavior: Behavior is cooperative. Assessment and Plan (J02.9) Pharyngitis, unspecified etiology (primary encounter diagnosis) Plan: STREP A MOLECULAR (POC) (J06.9) Viral upper respiratory tract infection with cough Plan: Kxvgqhqgjizrrmg-Pzynzqiui-SX (BROMFED DM) 2-30-10 mg/5 mL syrup, fluticasone (FLONASE ALLERGY RELIEF) 50 mcg/actuation nasal spray Education on viral vs bacterial infections. Most viral infections will last 10 days, sometimes 14. It is possible to have back to back viral infections. An antibiotic will not treat a virus. -Negative strep culture in office. If no improvement in the next couple days, may try antibiotic. Declines viral testing, negative assessment. -Bromfed for cough/congestion. -Drink lots of fluids and get plenty of rest. Gargle with salt water 3 times/day. -Vaporizers, cool mist humidifiers, warm showers, and warm fluids help open respiratory and sinus passages. Clean humidifiers daily. -OTC tylenol/ibuprofen as directed on the bottle. -Saline nasal spray as needed. Flonase twice daily can help reduce inflammation through the sinus cavities. -Cough/deep breathing education, promote clearing of the airways and good lung expansion. -Make follow up with primary care for monitoring and resolution in symptoms. -Signs that warrant an ER evaluation: Sudden change/worsening in condition, lethargy, signs of dehydration, fever greater than 102 F that is not responding to Tylenol or ib (more content not included)... [facility] 04-07-2023 Telephone encounter Note Patient is aware of the eye drops. [facility] 04-07-2023 Miscellaneous Notes Patient is aware of the eye drops. S: Patient is calling the [facility] with possible pink eye B: Symptom onset: 2 days A: Patient complains of: Daughter diagnosed with pink eye today and is being treated Patient-both eyes started itching 2 days ago along with crusty yellow-green discharge Whites of eyes are also reddened and eyes are mildly sore Patient denies: fever, blurred vision, wearing contact lenses Home care tried/alleviating factors: eyelid cleansing prn R: Advised a TE would be sent to provider for review. She would like antibiotic eye drops prescribed if possible without an office visit. Allergies and pharmacy verified. Home care advice reviewed with the patient per protocol: avoid scratching or rubbing eyes, handwashing Patient verbalizes understanding. Advised patient to call back with new or worsening symptoms. Reason for Disposition Eye with yellow or green discharge or eyelashes stick together, but NO standing order to call in antibiotic eye drops (Exception: Fe; continue triage.) Protocols used: Eye - Pus or [id number] documented in this encounter [facility] 04-07-2023 Telephone encounter Note S: Patient is calling the [facility] with possible pink eye B: Symptom onset: 2 days A: Patient complains of: Daughter diagnosed with pink eye today and is being treated Patient-both eyes started itching 2 days ago along with crusty yellow-green discharge Whites of eyes are also reddened and eyes are mildly sore Patient denies: fever, blurred vision, wearing contact lenses Home care tried/alleviating factors: eyelid cleansing prn R: Advised a HP TE would be sent to provider for review. She would like antibiotic eye drops prescribed if possible without an office visit. Allergies and pharmacy verified. Home care advice reviewed with the patient per protocol: avoid scratching or rubbing eyes, handwashing Patient verbalizes understanding. Advised patient to call back with new or worsening symptoms. Reason for Disposition Eye with yellow or green discharge or eyelashes stick together, but NO standing order to call in antibiotic eye drops (Exception: [place]; continue triage.) Protocols used: Eye - Pus or [id number] [facility] 02-23-2023 History of Presen t illness Narrative Images from the original note were not included. [facility] [address] [place] [address] [address] [facility] [address] Dept: [phone] Dept Loc: [phone] Visit type: Established Patient Reason for Visit: thinks complications from vaping discomfort in chest Assessment and Plan 1. Pleurodynia - CBC auto differential - D-dimer, quantitative - XR chest 2 views Patient has unusual vibratory sensation and some generalized right-sided chest discomfort that is transient and periodic in nature of unclear etiology. She appears to be in no acute respiratory distress her vital signs are stable she is not hypotensive tachycardic tachypneic or dyspneic he is in no pain currently. Concern for the costochondritis pleurodynia low index suspicion for pneumothorax pneumonia or other acute pulmonary sequelae concerned about possible PE though low index of suspicion she is not on control she was vaping she has no Homans' sign no calf pain swelling or tenderness and her only risk is really recent travel. We will obtain a D-dimer if it is positive we will entertain the idea of a CT of the chest however baseline chest x-ray will be obtained as well. Encouraged anti-inflammatories for now. Follow up if symptoms worsen or fail to improve. Subjective HPI this is a very pleasant healthy 27-year-old female who presents to the office today stating that she has noticed a couple months ago a vibration in her chest and she notices it worse or more so when she leans forward. She is concerned that she was vaping previously and she has since stopped that maybe she is cause damage to her lungs. She states she has had a history of pneumonia pneumonia she states bilateral pneumonia from previous episode of aspiration. This was about 4 years ago she was seen in the ER for but did not require admission. 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 She states the pain seems to be coming more frequently she states initially she thought it was just more of a muscle pull which is why she did not seek evaluation but more so recently it is more intense more frequent unclear etiology she is concerned as there is a strong family history of lung cancer. And she is concerned because she was vaping that she is causing damage or problems. She did report driving to [place] couple months ago but states she felt the vibration in her chest prior to that but the pain has been since then. She denies any shortness of breath currently no chest pain or palpitations no pain with deep inspiration. She does states she has some chronic swelling of her left leg intermittently but reports that its been ongoing ever since his orthopedic surgery in her leg. Review of Systems Constitutional: Negative for chills and fever. HENT: Negative for congestion and sore throat. Respiratory: Positive for chest tightness. Negative for cough, shortness of breath, wheezing and stridor. Cardiovascular: Positive for leg swelling (chronic left leg previous ortho surgery). Negative for chest pain and palpitations. Gastrointestinal: Negative for abdominal pain, diarrhea, nausea and vomiting. Genitourinary: Negative for difficulty urinating, dysuria, frequency and urgency. Musculoskeletal: Negative for back pain. Neurological: Negative for dizziness and light-headedness. All other systems reviewed and are negative. No Known Allergies No outpatient medications prior to visit. No facility-administered medications prior to visit. Past Medical History: Diagnosis Date COVID 4 episodes, october 2021 Family history of breast cancer Headache Heart murmur hx of heart mumur Left knee pain PONV (postoperative nausea and vomiting) Social History Tobacco Use Smoking status: Never Smokeless tobacco: Never Substance Use Topics Alcohol use: No Past Surgical History: Procedure Laterality Date KNEE ARTHROSCOPY Left 07/31/2016 L Knee Arthroscopy with debridement of scar tissue KNEE SURGERY Left 2014 WISDOM TOOTH EXTRACTION Family History Problem Relation Name Age of Onset High Blood Pressure Mother Arthritis Mother Rheumatoid arthritis Migraines Mother Deep vein thrombosis Mother High Blood Pressure Father Migraines Mother's Sister Seizures Mother's Sister Breast cancer Maternal Grandmother 52 Migraines Maternal Grandmother 52 Cancer Maternal Grandfather 62 Small cell of the lung Other (01490) Paternal Grandmother 51 Chronic obstructive pulmonary disease Diabetes Paternal Grandmother 51 Heart attack Paternal Grandfather 48 Objective BP 111/72 (BP Location: Left arm, Patient Position: Sitting, BP Cuff Size: Large adult) Pulse 76 Temp 37.3 C (99.1 F) (Temporal) Ht 5' 4 (1.626 m) Wt 204 lb (92.5 kg) SpO2 100% BMI 35.02 kg/m Physical Exam Vitals reviewed. Constitutional: General: She is not in acute distress. Appearance: Normal appearance. She is not ill-appearing or toxic-appearing. HENT: Right Ear: Tympanic membrane and ear canal normal. Left Ear: Tympanic membrane and ear canal normal. Mouth/Throat: Mouth: Mucous membranes are moist. Pharynx: No oropharyngeal exudate or posterior oropharyngeal erythema. Eyes: General: No scleral icterus. Conjunctiva/sclera: Conjunctivae normal. Pupils: Pupils are equal, round, and reactive to light. Cardiovascular: Rate and Rhythm: Normal rate and regular rhythm. Heart sounds: Normal heart sounds. No murmur heard. Pulmonary: Effort: Pulmonary effort is normal. No respiratory distress. Breath sounds: Normal breath sounds. No wheezing or rales. Musculoskeletal: Cervical back: Normal range of motion and neck supple. No rigidity or tenderness. Right lower leg: No edema. Left lower leg: No edema. Comments: Neg homans Lymphadenopathy: Cervical: No cervical adenopathy. Skin: General: Skin is warm and dry. Coloration: Skin is not jaundiced or pale. Neurological: Mental Status: She is alert. Psychiatric: Mood and Affect: Mood normal. Data Reviewed and Summarized Labs: Imaging/Testing: Connor Loya PA-C 02/23/2023 Please note that portions of this note may have been completed with voice recognition software. Documentation reviewed prior to signing but minor errors in gsa coordinator may have occurred. documented in this encounter [facility] 01-26-2023 Miscellaneous Notes Patient notified. Jaclyn Bynum RN Rx diflucan sent Michael Moran MD Pt of JUAN who has recurrent yeast infections, pt stated that she has not had a yeast infection in 2 months. Pt stated that she was to call the office when she begins with any sxs prior to using and treatment. She is currently out of state on vacation. She started with sxs on 01/22/23 and she is reporting that she is having vaginal itching, frequent urination, which is typical for this pt when she has a yeast infection. She is also having thick white discharge. Pt stated that JUAN was prescribing a routine of medication. See previous medication treatment regime. Pt stated that in the past she has tried monistat 7 with no relief of her sxs. Pt stating that she is miserable and is not sure how to proceed from here. Pharmacy listed below is closest pharmacy to pt's location in [place]. Please advise. Belle Coker LPN documented in this encounter [facility] 11-03-2022 Miscellaneous Notes Patient notified and voiced understanding. Shellie Reyes RN Order signed. This is primary management and what I would recommend to help with clearing. I try to avoid antibiotics if possible but due to her symptoms and testing positive this is what I would recommend. Thanks, Lyndsey Sanchez APRN.CNM [place], I called patient and she is aware [facility] diagnosis and medication sent in. 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 She would like him treated but wonders if there are any alternatives. I also had to put EPT for chlamydia because there is not a smart set for Ureoplasm. 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 I would recommend treatment with doxycycline 100mg PO BID x 7 days. If he is able and not allergic, recommend her take as well. I can send EPT just need his information. This can be passed back and forth during sexual activity and recommend treating both partners. It does not always need treated but due to her symptoms I would recommend and see if this will help. Make sure she takes with food and does not lay down for 2 hrs after taking. Lyndsey Sanchez APRN.CNM documented in this encounter [facility] 10-28-2022 Note HNO ID: [id number] Author: Lyndsey Sanchez APRN.CNM Service: ? Author Type: Historical Records Administrator Type: Progress Notes Filed: 10/28/2022 12:55 PM Note Text: Delma Jaramillo is a 27 year old female who presents for problem visit yeast infection. HPI: Completed Monistat 7. Last internal use 3 nights ago. Has to keep cream present external because of pain. Now has bleeding/swelling. Hurts to pee and sit. Yeast infection symptoms start 2 days after intercourse. Yeast infection symptoms always start about midcycle and last until menses, resolution during menses and then returns. Can't use a tampon for first few days of menses due to pain. Also times where she can't use one at all due to pain. Wears pads frequently, was using always brand, now using organic pads. Prior to of daughter in 2019 had this issue but not as severe. Was seeing another provider but he retired. Was taking diflucan monthly for 6 months around ovulation. Had taken clotrimazole and had swelling and reaction. This resolved after daughter until 2019. Only happened 2-3 times until the last 9 months. Having good vaginal hygiene, unscented soap, washes with water and showers 1-2 times a day. Thinks she had vaginal testing about 2-3 times from last practice. Would always try monistat first for 7 days then use Diflucan. Seen but did not have any testing and thinks she was treated 1-2 times with diflucan. Seen by 06/29/22, negative yeast and BV, used OTC monistat 3 for symptoms. Symptoms did not resolve right away and then took monistat 7. OB History T0 L1 SAB0 IAB0 Ectopic0 Multiple0 Live Births1 Cross Tie Tram Loader History LMP: 10/01/2022 (Exact Date), Having periods Age at Menarche: Age at First : Age at Menopause: Cross Tie Tram Loader History Comments: Sexual Activity: Not Asked; No partner data on record Contraception: No contraception data on record PAST MEDICAL HISTORY Diagnosis Date ACL (anterior cruciate ligament) tear Dysfunctional uterine bleeding Dysmenorrhea PAST SURGICAL HISTORY Procedure Laterality Date NONE FAMILY HISTORY Problem Relation Age of Onset Breast Cancer Maternal Grandmother other (Cancer - other [Other]) Maternal Grandfather Hypertension Mother other (Lung cancer [Other]) Maternal Grandmother Social History Tobacco Use Smoking status: Never Smokeless tobacco: Never Substance Use Topics Alcohol use: No Comment: Non-drinker Drug use: No Current Outpatient Medications Medication Sig Lactobacillus acidophilus (PROBIOTIC ORAL) Take by mouth. famotidine (PEPCID) 40 mg tablet (Patient not taking: No sig reported) No current facility-administered medications for this visit. Allergies As of Date: 10/28/2022 (No Known Allergies) Fully Assessed 10/28/2022 REVIEW OF SYSTEMS Abdomen: No bloating, early satiety, indigestion, or increased flatulence. No abdominal pain, nausea, vomiting, diarrhea, or constipation. Bladder: No dysuria, gross hematuria, urinary frequency, urinary urgency, or incontinence. Breast: No breast lumps, nipple d/c, overlying skin changes, redness or skin retraction. Expanded ROS: N/A Allergies and current medication updated:Yes EXAM: BP 108/64 Wt 201 lb (91.2kg) LMP 10/01/2022 GENERAL: pleasant, female in no apparent distress HEENT: Normocephalic and atraumatic NECK: Supple and full range of motion CHEST: Normal inspiratory effort PELVIC: external genitalia normal, normal Bartholin's glands, urethra, [place]'s glands, no vulvar lesions, no cervical lesions, good vaginal support,normal appearing perineal body and perianal region, abnormal discharge, small amount of white thick curd like discharge in single clumps, non adherent to vaginal wall. BIMANUAL: uterus normal size, shape and consistency, no adnexal masses, and non-tender NEURO: alert and oriented x3,exam grossly non-focal EXTREMITIES: normal ASSESSMENT AND PLAN: 1. Vaginal discharge - ICD9: 623.5, ICD10: N89.8 (primary diagnosis) - BACTERIAL VAGINOSIS NAAT - DANNI/TRICHOMONAS NAAT - GONORRHEA/CHLAMYDIA NAAT - UROGENITAL UREAPLASMA AND MYCOPLASMA SPECIES BY PCR, FOR GENITAL, RECTAL, URINE SAMPLES -Reviewed with patient that since we have had limited testing I would like to make sure that with each episode that we complete testing so we are treating the right organism. -Due to symptoms today I will treat with Diflucan 150 mg p.o. once and repeat every 3 days x 3 doses. -Mycolog ointment to be applied to the vulva twice a day for 14 days to help with inflammation and itching. -Discussed with patient [employer] probiotic to take 15 days on and 15 days off throughout the month and see if this helps with microbiome. -Patient has good vulvar hygiene and discussed to continue at this time. -Recommend no intercourse by way of trying to treat because of vulvar and vaginal irritation. Discussed would like to try this initial (more content not included)... [facility] 10-28-2022 Instructions Lyndsey Sanchez APRN.CNM - 10/28/2022 10:55 AM EDT Images from the original note were not included. *Clairvee is the only oral probiotic that has been proven to target the vagina's microbiome, restoring lactobacilli, and thus reducing the recurrence of BV and yeast. Rigorous clinical trials show that Clairvee significantly reduces these annoying recurrences while balancing the vagina's microbiome and pH. Clairvee should be taken orally each day for 15 days of the month; 15 days off; then resumed for 15 days and so forth. Clairvee begins to balance the microbiome in as little as 15 days with best results at 6 months. Clairvee is professionally recommended, easily ordered by the patient, costs about $35 per month, and directly shipped to the patient's home. Clairvee is a great option for patients who struggle with recurring BV and yeast who have had no other prevention strategies in the past. It is also a great choice for women who have GSM symptoms of odor, itching, and discharge with an intermediate isabell score, but have not had any other means to eliminate the embarrassing symptoms. Diflucan 150mg by mouth once, repeat every 3 days for 3 doses. Apply mycolog twice a day for 14 days. documented in this encounter [facility] 10-28-2022 History of Presen t illness Narrative Delma Jaramillo is a 27 year old female who presents for problem visit yeast infection. HPI: Completed Monistat 7. Last internal use 3 nights ago. Has to keep cream present external because of pain. Now has bleeding/swelling. Hurts to pee and sit. Yeast infection symptoms start 2 days after intercourse. Yeast infection symptoms always start about midcycle and last until menses, resolution during menses and then returns. Can't use a tampon for first few days of menses due to pain. Also times where she can't use one at all due to pain. Wears pads frequently, was using always brand, now using organic pads. Prior to of daughter in 2019 had this issue but not as severe. Was seeing another provider but he retired. Was taking diflucan monthly for 6 months around ovulation. Had taken clotrimazole and had swelling and reaction. This resolved after daughter until 2019. Only happened 2-3 times until the last 9 months. Having good vaginal hygiene, unscented soap, washes with water and showers 1-2 times a day. Thinks she had vaginal testing about 2-3 times from last practice. Would always try monistat first for 7 days then use Diflucan. Seen but did not have any testing and thinks she was treated 1-2 times with diflucan. Seen by 06/29/22, negative yeast and BV, used OTC monistat 3 for symptoms. Symptoms did not resolve right away and then took monistat 7. OB History T0 L1 SAB0 IAB0 Ectopic0 Multiple0 Live Births1 Cross Tie Tram Loader History LMP: 10/01/2022 (Exact Date), Having periods Age at Menarche: Age at First : Age at Menopause: Cross Tie Tram Loader History Comments: Sexual Activity: Not Asked; No partner data on record Contraception: No contraception data on record PAST MEDICAL HISTORY Diagnosis Date ACL (anterior cruciate ligament) tear Dysfunctional uterine bleeding Dysmenorrhea PAST SURGICAL HISTORY Procedure Laterality Date NONE FAMILY HISTORY Problem Relation Age of Onset Breast Cancer Maternal Grandmother other (Cancer - other [Other]) Maternal Grandfather Hypertension Mother other (Lung cancer [Other]) Maternal Grandmother Social History Tobacco Use Smoking status: Never Smokeless tobacco: Never Substance Use Topics Alcohol use: No Comment: Non-drinker Drug use: No Current Outpatient Medications Medication Sig Lactobacillus acidophilus (PROBIOTIC ORAL) Take by mouth. famotidine (PEPCID) 40 mg tablet (Patient not taking: No sig reported) No current facility-administered medications for this visit. Allergies As of Date: 10/28/2022 (No Known Allergies) Fully Assessed 10/28/2022 REVIEW OF SYSTEMS Abdomen: No bloating, early satiety, indigestion, or increased flatulence. No abdominal pain, nausea, vomiting, diarrhea, or constipation. Bladder: No dysuria, gross hematuria, urinary frequency, urinary urgency, or incontinence. Breast: No breast lumps, nipple d/c, overlying skin changes, redness or skin retraction. Expanded ROS: N/A Allergies and current medication updated:Yes EXAM: BP 108/64 Wt 201 lb (91.2kg) LMP 10/01/2022 GENERAL: pleasant, female in no apparent distress HEENT: Normocephalic and atraumatic NECK: Supple and full range of motion CHEST: Normal inspiratory effort PELVIC: external genitalia normal, normal Bartholin's glands, urethra, [place]'s glands, no vulvar lesions, no cervical lesions, good vaginal support,normal appearing perineal body and perianal region, abnormal discharge, small amount of white thick curd like discharge in single clumps, non adherent to vaginal wall. BIMANUAL: uterus normal size, shape and consistency, no adnexal masses, and non-tender NEURO: alert and oriented x3,exam grossly non-focal EXTREMITIES: normal ASSESSMENT AND PLAN: 1. Vaginal discharge - ICD9: 623.5, ICD10: N89.8 (primary diagnosis) - BACTERIAL VAGINOSIS NAAT - DANNI/TRICHOMONAS NAAT - GONORRHEA/CHLAMYDIA NAAT - UROGENITAL UREAPLASMA AND MYCOPLASMA SPECIES BY PCR, FOR GENITAL, RECTAL, URINE SAMPLES -Reviewed with patient that since we have had limited testing I would like to make sure that with each episode that we complete testing so we are treating the right organism. -Due to symptoms today I will treat with Diflucan 150 mg p.o. once and repeat every 3 days x 3 doses. -Mycolog ointment to be applied to the vulva twice a day for 14 days to help with inflammation and itching. -Discussed with patient [employer] probiotic to take 15 days on and 15 days off throughout the month and see if this helps with microbiome. -Patient has good vulvar hygiene and discussed to continue at this time. -Recommend no intercourse by way of trying to treat because of vulvar and vaginal irritation. Discussed would like to try this initial course and repeat testing in 4 weeks if she continues to have symptoms. Discussed with patient options for suppressive therapy, boric acid, or referral to infectious disease if indicated. 2. Vaginal irritation - ICD9: 623.9, ICD10: N89.8 - BACTERIAL VAGINOSIS NAAT - DANNI/TRICHOMONAS NAAT - GONORRHEA/CHLAMYDIA NAAT - UROGENITAL UREAPLASMA AND MYCOPLASMA SPECIES BY PCR, FOR GENITAL, RECTAL, URINE SAMPLES Lyndsey Sanchez APRN.CNM documented in this encounter [facility] 06-29-2022 Note HNO ID: [id number] Author: Sterling Riggs MD Service: ? Author Type: Physician Type: Progress Notes Filed: 06/29/2022 2:13 PM Note Text: Chief Innovation Officer offered: Patient declines. Delma Jaramillo is a 27 year old female who presents recurrent yeast infections. Pt reports started before of daughter 3+ yrs ago. Pt reports previous HIM ASSISTANT was calling in [employer] all the time and she would have some relief but it would come back monthly. Pt reports feels like they start right before cycle. Reports it is thick/yellow discharge - itching on inside of vagina and vulva. Sex is painful. She reports skin is so irritated it bleeds easily on contact. Pt reports no changes in soaps/detergents. Pt reports there is a family h/o DM- but she has never been diagnosed. Is trying to do low carb diet. Pt reports uses condoms but sex makes it worse. Has never had issues with condoms.pt offers no other concerns today. OB History T0 L0 SAB0 IAB0 Ectopic0 Multiple0 Live Births0 Cross Tie Tram Loader History LMP: 01/04/2022 Age at Menarche: Age at First : Age at Menopause: Cross Tie Tram Loader History Comments: Sexual Activity: Not Asked; No partner data on record Contraception: No contraception data on record PAST MEDICAL HISTORY Diagnosis Date ACL (anterior cruciate ligament) tear Dysfunctional uterine bleeding Dysmenorrhea PAST SURGICAL HISTORY Procedure Laterality Date NONE FAMILY HISTORY Problem Relation Age of Onset Breast Cancer Maternal Grandmother other (Cancer - other [Other]) Maternal Grandfather Hypertension Mother other (Lung cancer [Other]) Maternal Grandmother Social History Tobacco Use Smoking status: Never Smokeless tobacco: Never Substance Use Topics Alcohol use: No Comment: Non-drinker Drug use: No Current Outpatient Medications Medication Sig famotidine (PEPCID) 40 mg tablet No current facility-administered medications for this visit. Allergies As of Date: 06/29/2022 (No Known Allergies) Fully Assessed 03/18/2022 REVIEW OF SYSTEMS Abdomen: no pain Bladder: no dysuria but some tenderness when urine hits vulvar tissue.. Expanded ROS: GENERAL: Negative for fever Allergies and current medication updated:Yes EXAM: BP 110/70 Wt 198 lb (89.8kg) LMP 06/04/2022 GENERAL: pleasant, female in no apparent distress HEENT: Normocephalic, atraumatic, mucus membranes moist, and no lesions ABDOMEN: soft, non-tender, and no masses PELVIC: external genitalia normal, normal Bartholin's glands, urethra, [place]'s glands, no cervical lesions, good vaginal support, physiologic discharge present, normal appearing perineal body and perianal region, minimal white discharge. Vulvar appears slightly erythematous. BIMANUAL: uterus normal size, shape and consistency, no adnexal masses, and non-tender NEURO: alert and oriented x3,exam grossly non-focal EXTREMITIES: normal ASSESSMENT AND PLAN: Encounter Diagnosis ICD-10-CM 1. Vaginal discharge N89.8 DANNI / TRICHOMONAS AMPLIFICATION BACTERIAL VAGINOSIS AMPLIFICATION GC/CHLAMYDIA DNA DET HGB A1C COMP METABOLIC PANEL 2. Vulvar irritation N90.89 3. Vulvar hygiene was reviewed. Patient will make adjustments to detergents/dryer sheets. Gonm-tpy-paafsky Azo dual relief yeast/odor probiotic was reviewed. 4. Discussed possible resistance to Diflucan discussed resistant strains of Danni. Medical Decision Making: Problems: Moderate: 1+ chronic illnesses with change Data: Unique test(s) ordered: 3+ Medical Decision Making Level: 4 - Moderate Sterling Mahoney MD [facility] 06-29-2022 Instructions Sterling Riggs MD - 06/29/2022 2:07 PM EST AZO dual relief yeas and odor documented in this encounter [facility] 06-29-2022 History of Presen t illness Narrative Chief Innovation Officer offered: Patient declines. Delma Jaramillo is a 27 year old female who presents recurrent yeast infections. Pt reports started before of daughter 3+ yrs ago. Pt reports previous HIM ASSISTANT was calling in diflucan all the time and she would have some relief but it would come back monthly. Pt reports feels like they start right before cycle. Reports it is thick/yellow discharge - itching on inside of vagina and vulva. Sex is painful. She reports skin is so irritated it bleeds easily on contact. Pt reports no changes in soaps/detergents. Pt reports there is a family h/o DM- but she has never been diagnosed. Is trying to do low carb diet. Pt reports uses condoms but sex makes it worse. Has never had issues with condoms.pt offers no other concerns today. OB History T0 L0 SAB0 IAB0 Ectopic0 Multiple0 Live Births0 Cross Tie Tram Loader History LMP: 01/04/2022 Age at Menarche: Age at First : Age at Menopause: Cross Tie Tram Loader History Comments: Sexual Activity: Not Asked; No partner data on record Contraception: No contraception data on record PAST MEDICAL HISTORY Diagnosis Date ACL (anterior cruciate ligament) tear Dysfunctional uterine bleeding Dysmenorrhea PAST SURGICAL HISTORY Procedure Laterality Date NONE FAMILY HISTORY Problem Relation Age of Onset Breast Cancer Maternal Grandmother other (Cancer - other [Other]) Maternal Grandfather Hypertension Mother other (Lung cancer [Other]) Maternal Grandmother Social History Tobacco Use Smoking status: Never Smokeless tobacco: Never Substance Use Topics Alcohol use: No Comment: Non-drinker Drug use: No Current Outpatient Medications Medication Sig famotidine (PEPCID) 40 mg tablet No current facility-administered medications for this visit. Allergies As of Date: 06/29/2022 (No Known Allergies) Fully Assessed 03/18/2022 REVIEW OF SYSTEMS Abdomen: no pain Bladder: no dysuria but some tenderness when urine hits vulvar tissue.. Expanded ROS: GENERAL: Negative for fever Allergies and current medication updated:Yes EXAM: BP 110/70 Wt 198 lb (89.8kg) LMP 06/04/2022 GENERAL: pleasant, female in no apparent distress HEENT: Normocephalic, atraumatic, mucus membranes moist, and no lesions ABDOMEN: soft, non-tender, and no masses PELVIC: external genitalia normal, normal Bartholin's glands, urethra, [place]'s glands, no cervical lesions, good vaginal support, physiologic discharge present, normal appearing perineal body and perianal region, minimal white discharge. Vulvar appears slightly erythematous. BIMANUAL: uterus normal size, shape and consistency, no adnexal masses, and non-tender NEURO: alert and oriented x3,exam grossly non-focal EXTREMITIES: normal ASSESSMENT AND PLAN: Encounter Diagnosis ICD-10-CM 1. Vaginal discharge N89.8 DANNI / TRICHOMONAS AMPLIFICATION BACTERIAL VAGINOSIS AMPLIFICATION GC/CHLAMYDIA DNA DET HGB A1C COMP METABOLIC PANEL 2. Vulvar irritation N90.89 3. Vulvar hygiene was reviewed. Patient will make adjustments to detergents/dryer sheets. [id number] Azo dual relief yeast/odor probiotic was reviewed. 4. Discussed possible resistance to Diflucan discussed resistant strains of Danni. Medical Decision Making: Problems: Moderate: 1+ chronic illnesses with change Data: Unique test(s) ordered: 3+ Medical Decision Making Level: 4 - Moderate Sterling Mahoney MD documented in this encounter [facility] 06-01-2022 Miscellaneous Notes Patient notified and appointment scheduled. Gifty Mendiola RN Left message to call office. Shellie Reyes RN Agree with Monistat 7 day and schedule appointment to discuss recurrent vaginitis Patient calling stating she continues to get constant yeast infections. Patient had recent miscarriage in March and states she has got a yeast infection every month since. Patient was having problems with recurrent monthly yeast infections that would start the week before menses prior to as well. Patient states she wears cotton underwear, and uses unscented soaps and detergents. Patient was previously seen at [place] and states she was given Diflucan all the time and it would help in the moment, but ultimately she would end up with another infection. Patient states current symptoms started yesterday and are so bad that she is having vaginal spotting with it. She started a 3 day OTC Monistat treatment. Instructed to try full 7 day treatment. Any further instructions at this time? Do you want patient to schedule an appointment? 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 * Cough Discharge Instructions, Adult (Faroese) [facility] Purpose Family History No Family History Records FoundNo Family History Records FoundNo Family History Records FoundNo Family History Records FoundNo Family History Records FoundNo Family History Records FoundNo Family History Records Found Advance Directives No Advanced Directives Records FoundDocuments on File Type Date Recorded Patient Chip Separator Expl anation ACP-Advance Directive ACP-Power of Suspension Cord Tier Latest Code Status on File Code Status Date Activated Date Inactivated Comments Full Code 07/31/2016 7:12 AM 07/31/2016 2:42 PM Reason for Referral Status Reason Specialty Diagnoses / Procedures Referred By Contact Referred To Contact Open Specialty Services Required Neurology Diagnoses Headache disorder Emerson Najera MD [address] [place] [address] [facility] [place] [address] [place] [address] Scheduling Instructions [facility] [place] [address] [place], [place] [address] Discharge Instructions * Attachments The following attachments cannot be sent through Care Everywhere. * Migraine Headache (Faroese) documented in this encounter Assessments Diagnosis Headache disorder- Primary Headache Additional Source Comments INFORMATION SOURCE (unrecogn ized section and content) DATE CREATED AUTHOR AUTHOR'S ORGANIZ ATION 11/02/2017 [facility] DATE CREATED AUTHOR AUTHOR'S ORGANIZ ATION 11/03/2017 [facility] DATE CREATED AUTHOR AUTHOR'S ORGANIZ ATION 08/13/2018 [facility] DATE CREATED AUTHOR AUTHOR'S ORGANIZ ATION 02/13/2019 [facility] DATE CREATED AUTHOR AUTHOR'S ORGANIZ ATION 05/16/2023 [facility] DATE CREATED AUTHOR AUTHOR'S ORGANIZ ATION 05/29/2023 [facility] Reason for Visit (unrecogniz ed section and content) Reason Comments Results Vaginal Problem Reason Comments Vaginal Infection Reason Comments Vaginal Problem Possible yeast infec tion Reason Comments Results Reason Comments Patient Question Reason Comments thinks complications from vaping discomf ort in chest Reason Onset Date Comments Conjunctivitis 04/07/2023 Reason Comments Cough Ordered Prescriptions (unrec ognized section and content) Source Comments (unrecognize d section and content) In the event this informatio n is protected by the Federal Confidentiality of Alcohol and Drug Abuse Patient Records regulations: The Federal rules restrict any use of the information to criminally investigate or prosecute any alcohol or drug abuse patient.[facility] the event this information is protected by the Federal Confidentiality of Alcohol and Drug Abuse Patient Records regulations: The Federal rules restrict any use of the information to criminally investigate or prosecute any alcohol or drug abuse patient.[facility] the event this information is protected by the Federal Confidentiality of Alcohol and Drug Abuse Patient Records regulations: The Federal rules restrict any use of the information to criminally investigate or prosecute any alcohol or drug abuse patient.[facility] the event this information is protected by the Federal Confidentiality of Alcohol and Drug Abuse Patient Records regulations: The Federal rules restrict any use of the information to criminally investigate or prosecute any alcohol or drug abuse patient.[facility] the event this information is protected by the Federal Confidentiality of Alcohol and Drug Abuse Patient Records regulations: The Federal rules restrict any use of the information to criminally investigate or prosecute any alcohol or drug abuse patient.[facility] Care Teams (unrecognized sec tion and content) Microcomputer Support Specialist Relationship Specialty Start Date End Date [address]iv[address] [place] [phone] PCP - General Pediatrics 05/22/17 Microcomputer Support Specialist Relationship Specialty Start Date End Date Shivani [address] [place] [phone] PCP - General Pediatrics 05/22/17 Microcomputer Support Specialist Relationship Specialty Start Date End Date Shivani Powers [address] [place] [phone] PCP - General Pediatrics 05/22/17 Microcomputer Support Specialist Relationship Specialty Start Date End Date Christian Baron, DO [address] [place] [phone] PCP - General Family Medicine 02/23/23 Microcomputer Support Specialist Relationship Specialty Start Date End Date Christian Baron DO [address] [place] [phone] PCP - General Family Medicine 02/23/23 Microcomputer Support Specialist Relationship Specialty Start Date End Date Christian Baron ZackDO [address] [place] [phone] PCP - General Family Medicine 02/23/23 Microcomputer Support Specialist Relationship Specialty Start Date End Date Christian Baron ZackDO [address] [facility] [address] [place] [phone] PCP - General Family Medicine 02/23/23 Scheduled Active and Recently Administ ered Medications (unrecognized section and content) FOR RECORDS PERTAINING TO PATIENTS WHO ARE OR HAVE BEEN ENROLLED IN A CHEMICAL DEPENDENCY/SUBSTANCEABUSE PROGRAM, SOME INFORMATION MAY BE OMITTED. This clinical summary was aggregated from multiple sources. Caution should be exercised in using it in the provision of clinical care. This summary normalizes information from multiple sources, and as a consequence, information in this document may materially change the coding, format and clinical context of patient data. In addition, data may be omitted in some cases. CLINICAL DECISIONS SHOULD BE BASED ON THE PRIMARY CLINICAL RECORDS. [facility]. provides no warranty or guarantee of the accuracy or completeness of information in this document.
[2023-06-21] MEDS: Lactated Ringers 1,000 ML 15 ML IV (13:19)
[2023-06-21 13:28] LABS: Hematocrit 36.9 % (37-47); Hemoglobin 12.8 g/dL (12.0-15.0); Mean Corp Hgb Conc 34.7 g/dL (32-36); Mean Corpuscular Hgb 29.8 pg (27.0-32.0); Mean Platelet Vol. 11.8 fl (6.2-12.0); Platelet Count 202 K/mm3 (150-450); RBC Distribution Width CV 12.8 % (11.6-14.6); RBC Distribution Width SD 39.6 fl (35.1-43.9); Red Blood Count 4.29 M/mm3 (4.2-5.4)
[2023-06-21] MEDS: DiphenhydrAMINE 50 MG/ML Syringe IV (14:40)
--- NOTE | 2023-06-21 14:45 | POC_PTH ---
PATHOLOGY RESULTS PATIENT: CHARITO WHITEHEAD [place] [facility] [id number] AGE/SX: 28/F ROOM: RE06/21/[address]: Dr. Christina Alvarez MD : 1995 BED: DIS: 06/21/2023 SPEC #: [id number] RECD: 06/21/23 18:07 STATUS: LIZET DUBOIS #: [id number] TRINA: 06/21/23 14:[address]: Christina Alvarez DEPT: SURGICAL PATHOLOGY RECD BY: Mary Beth Ferrer ENTERED: 06/22/23 08:54 SP TYPE: PROD CONC Tissues: Product of conception, NOS Procedures: Surgery Specimen Level IV HEADER OPERATION: Dilation and curettage PRE-OP DIAGNOSIS: Missed TISSUE SUBMITTED: Products of conception. MICROSCOPIC DIAGNOSIS Products of conception, dilation and curettage: [place], gestational endometrium and immature chorionic villi (products of conception), clinically missed . SJ:jorge 06/23/2023 MICROSCOPIC DESCRIPTION Slides are reviewed. GROSS DESCRIPTION Received in fixative is one container labeled with the patient's name and designated products of conception. The specimen consists of multiple irregular fragments of light pink-soot soft tissue that in aggregate measure 10.0 x 9.5 x 1.0 cm. parts are not grossly recognized. Halal Butcher portions are submitted in one cassette. / AM:jorge 06/22/2023 TC:5 CPT: 87023
--- NOTE | 2023-06-21 15:02 | HP.PCM_ITS ---
History and Physical Vital Signs 06/02/2408:07 06/21/2409:32 06/21/2409:36 Height 5 ft 4 in 5 ft 4 in 5 ft 4 in Weight: 195 lb BMI 33.5 BP 114/65 Intake Visit Reasons: OB, 11w, bleeding. 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: No Is patient in pain?: No Allergies No Known Allergies Allergy (Verified 06/21/23 10:33) Medications ondansetron 4 mg disintegrating tablet 4 mg PO Q8H 05/28/23 [History Confirmed 06/21/23] ondansetron HCl 4 mg tablet 4 mg PO DAILY #30 tabs 06/02/23 [Rx Confirmed 06/21/23] Last Menstrual Period: 04/01/23 Zika: Zika virus screening: Negative : No PFSH PFSH Medical History Anxiety and depression Threatened Surgical History ACL injury tear Hematite teeth extracted Family History Grandmother DeceasedBreast cancer, Onset Age: 49 Maternal FH: multiple miscarriages or stillbirths maternalMother Pre-eclampsia Anesthesia complication Allergic, per pt nearly . Difficult to wake up. Social History adopted: No household members: spouse and children number of children: 1 current occupational status: employed current occupation: [employer] in [place] current occupational exposures/hazards: No pets and animals: Yes (avoid litterbox) pets and animals: cat(s) and dog(s) history of recent travel: No sexually active: Yes Smoking Status: Never smoker alcohol intake: never substance use type: does not use well-balanced diet: daily or most days caffeine: No eating out: 1-3 times/week during the past year weight has: remained stable what type of physical activity do you participate in: none vilma/yarsani: Druze seatbelt use: always do you feel safe at home: Yes additional social history: Amy History 3 Elective abortions Hx Para 1 Spontaneous abortions 1 Hx # Term Pregnancies Ectopic pregnancies Hx # Pregnancies Multiple births # of living children 1 Past Pregnancies Del. Date Name GA/Weeks Outcome Route Bth Weight Infant Gen Labor Lgth Anesthesia Del Locatn Provider FOB 12/12/18 Rylann 40 live - full term NS VD ? Female ? epidural [facility] DAX ? 03/16/23 ? 6 spontaneous ? Delivery Date: 12/12/18 Last Updated by: Divina Negron 2 degree laceration HPI OB, 11w, bleeding. Details: CHARITO TINSLEY is a 28 year old who presents for vaginal bleeding and upon ultrasound evaluation- diagnosed with miscarriage. measuring a week and a half beihnd with confirme dloss. NIPT drawn a week ago. OB Visit BEV Calculator ? Estimated Delivery Date Method Current WG Current Estimate 01/06/24 LMP (Certain) 11w 4d Expected Delivery Route/Plan Labor Preferences- CB/BF classes: [] labor support person: [] labor intervention preferences: [] pain management options preferred: [] cut cord/dad catch: [] : [] PP control planned: [] discussed possible routes of delivery and associated risks: [] special requests: [] Specific Issue/Plans Covid status: [] Flu vaccine: [] Tdap vaccine: [] Rhogam: [] LARC form signed: [] Problem list reviewed and updated with the most current plan of care details and appropriate orders placed. Relevant counseling for the gestational age provided. Continue routine care and follow up unless otherwise noted in visit notes/problem list details Initial Weight: Not Recorded Date -?-?-?-?-?-?-?-?-?-?-?-?- EGA Weight BP Urine Prot -?-?-?-?-?-?-?-?-?-?-?-?- Glucose FHR FuHt Pres Dilation -?-?-?-?-?-?-?-?-?-?-?-?- Effaced St Visit Note 06/02/23-?-?-?-?-?-?-?-?-?-?-?-?- 8w 6d 196 lb 8 oz 107/71 -?-?-?-?-?-?- ?-?-?-?-?-?- 189 ? ? -?-?-?-?-?-?-?-?-?-?-?-?- ? LC- CRL 20.1LC- CRL 20.1 con with LMP. considering nipt. hbga1c added to nob labs for obesity. LDA recommended after 12 weeks for family hx of PEC and obesity. 06/21/23-?-?-?-?-?-?-?-?-?-?-?-?- 11w 4d 195 lb 114/65 -?-?-?-?-?-?- ?-?-?-?-?-?- ? ? ? -?-?-?-?-?-?-?-?-?-?-?-?- ? CRL measuring 9w5d with no FHT and no color doppler flow seen. patient having heavy vaginal bleeding with clots this morning, went through 2 pads. ACOG First Trimester First Trimester: Discussed ROS Const Reports system reviewed and no additional complaints, except as documented, Reports fatigue and Denies fever(s) Eyes Reports system reviewed and no additional complaints, except as documented ENT Reports system reviewed and no additional complaints, except as documented Card Denies chest pain and Denies dyspnea Resp Reports system reviewed and no additional complaints, except as documented, Denies cough and Denies dyspnea GI Denies abdominal pain and Reports nausea Reports system reviewed and no additional complaints, except as documented and Reports abnormal vaginal bleeding Musc Reports system reviewed and no additional complaints, except as documented Skin/Breast Reports system reviewed and no additional complaints, except as documented Neuro Yes system reviewed and no additional complaints, except as documented Psych Reports system reviewed and no additional complaints, except as documented Endo Reports system reviewed and no additional complaints, except as documented and Reports fatigue Exam Const General: healthy appearing, comfortable and no acute distress Orientation: alert [facility] Head: normal to inspection, normocephalic and atraumatic Ears: hearing grossly normal bilaterally and external ears normal Nose: external nose normal and nares normal Mouth: oral mucosae normal Teeth and gingiva: dentition normal Eyes General: appearance normal, both eyes and all related structures Neck Neck: normal visual inspection, no lymphadenopathy and supple Thyroid: thyroid normal Chest Chest palpation & inspection: normal inspection of the chest Breast inspection: normal inspection of the breasts and normal inspection of the axillae Breast palpation: normal palpation of the breasts and normal palpation of the axillae Resp Effort & Inspection: normal respiratory effort GI Inspection: normal to inspection Palpation: soft and no hepatosplenomegaly External Female Exam: normal external appearance and normal appearance of the urethra Urethra: normal appearance of the urethra Speculum Exam - Vagina: normal appearance of the vagina Speculum Exam - Cervix: cervical os open and other (significant blood at os but minimal active bleeding, small clots) Bimanual Exam- Vagina & Uterus: enlarged Bimanual Exam- Adnexa, other: normal adnexae, rectocele and cystocele Pelvic Support: cystocele and rectocele OB/External & Speculum: cervical os open Speculum Exam: cervical os open Skin General: no rashes or lesions noted Neuro Motor: muscle tone normal throughout and no movement abnormalities noted Extrem General: normal to inspection and full ROM Coding Level of Care Code OB Routine Diagnoses Obesity E66.9 Anxiety and depression F41.9; F32.A History of miscarriage, currently O09.299 Supervision of high-risk O09.90 11 weeks gestation of Z3A.11 Weeks of gestation: 11 weeks Incomplete miscarriage O03.4 Assessment and Plan Assessment and Plan (1) Obesity: Status: Acute Comment: healthy weight gain in hgba1c with nob labs. (2) Anxiety and depression: Status: Acute Comment: PSI information. has counseling sheet from [facility]. has never been on medication management. had significant pp anxiety with daughter. (3) History of miscarriage, currently : Status: Acute Comment: 2022 (4) Supervision of high-risk : Status: Acute Comment: PRR (gcc obtain next appt), BEV 01/06/24 PC Parris Amy (5) : Status: Acute Qualifiers: Weeks of gestation: 11 weeks Qualified Code(s): Z3A.11 - 11 weeks gestation of Comment: discussed genetic & carrier testing, considering. (6) Incomplete miscarriage: Status: Acute Comment: counseled regarding options, plan suction d and c Plan After discussing the patient's diagnosis and treatment plan options, patient wishes to proceed with surgical management. I have discussed with the patient the risks, benefits, and alternatives of the procedure which include but are not limited to risks of anesthesia, bleeding, infection, possible damage to bowel, bladder, or surrounding vasculature which could lead to additional surgery to evaluate any complications. Patient agrees to procedure and wishes to proceed. ACOG/uptodate references given for additional information regarding procedure.
--- NOTE | 2023-06-21 15:20 | OP.PCM_ITS ---
Problems Associated Problem List Diagnoses (1) Incomplete miscarriage: (2) Anxiety and depression: (3) : Report of Operation Date of Procedure: 06/21/23 Pre-Operative Diagnosis: see problem list Post-Operative Diagnosis: same Surgery/Procedure Performed:: Suction dilation and curettage Description of Surgical Findings:: no FHT present, Nonviable 10 weeks Surgeon: Christina Alvarez director cardiovascular: None Type of Anesthesia: Local MAC Special Medications: none Specimen's removed: POC Drains: none Estimated Blood Loss (mL): 200 Fluids Replaced: crystalloid Description of Procedure: Patient was taken to the operating room and placed under MAC local anesthesia. She was prepped and draped in the normal sterile fashion the dorsal lithotomy position. Bladder was drained of clear urine and anterior lip of the cervix was grasped and the uterus sounded to 11cm. Cervix was progressively dilated to allow passage of a [] suction curette. Progressive passes were made removing the retained products of conception without complication. Sharp curettage confirmed complete removal of the retained products. All instruments were re moved from the vagina and excellent hemostasis was noted and the patient was taken to recovery in stable condition. Grafts/Implants Used: none Procedure Start Time: 03:26 Procedure Stop Time: 03:36 Complications none Admit VTE Documentation VTE Present on Admission: No VTE Mechan Device Prophylaxis: SCD's Procedures Urinary/Genital 52xxx-59xxx: [id number] Trmt of incomplete Ab, any TM
--- NOTE | 2023-06-21 15:21 | DCINST_ITS ---
Discharge Instructions Diet Discharge Diet: No restrictions Activity Discharge Activity: Return to Normal Activity, May Shower and May Take a Tub Bath (after 1 week) May resume sexual activity in: 1-2 weeks Weight Bearing Status: Weight bearing as tolerated Lifting Restrictions: none Dressing / Incision Call your doctor if you observe: Fever of 101 or Higher, Using more than 1 pad per hour, Shortness of breath and Uncontrolled pain Follow Up Care Please Follow Up With: Christina Alvarez MD When: Call [phone] to schedule appointment. Test Results: Test results from this visit will be discussed in further detail at your follow- up appointment, if applicable. Discharge Plan Admission Attending Provider: Christina Alvarez Primary Care Provider: CHEN GRA Discharge Orders/Prescriptions Prescriptions: No Action ondansetron 4 mg tablet,disintegrating 4 mg PO Q8H ondansetron HCl 4 mg tablet 4 mg PO DAILY Qty: 30 3RF Referrals / Follow Up: CHEN GAR [Other] Disposition Disposition (needs filled in before D/C Order can be placed): Home, Self Care
[2023-06-21] MEDS: Lidocaine 1% (20 ml mdv) 20 ML Vial (15:25)
== END 2023-06-21 17:19 | disposition home or self-care (01) ==
LOC: SDC 12:44 → AC 12:46
PROVIDERS: Referring Provider Obstetrics & Gynecology; Visit Provider Obstetrics & Gynecology
PROC: (CPT 59812; principal; 2023-06-21 14:30)
DX: O03.4 Incomplete spontaneous abortion without complication (principal); Z3A.11 11 weeks gestation of pregnancy; F32.A Depression, unspecified; F41.9 Anxiety disorder, unspecified; O99.341 Other mental disorders complicating pregnancy, first trimester; O99.211 Obesity complicating pregnancy, first trimester; E66.8 Other obesity; Z96.652 Presence of left artificial knee joint
CPT/HCPCS: 59812; 01965; 85027; 86850; 86900; 86901; 88305; J7120; J2405

== ENCOUNTER → 2023-07-02 | Outpatient (CLI) | payer BC, SELFPAY ==
[2023-07-02 15:16] LABS: Hemoglobin A1c 4.8 % (3.8-5.6)
[2023-07-02 15:20] LABS: Thyroid Stim Hormone (TSH) 0.82 uIU/mL (0.358-3.74)
[2023-07-06 16:09] LABS: Anti-Cardiolipin Ab, IgA, Qn < 9 APL U/mL (0-11); Anti-Cardiolipin Ab, IgG, Qn < 9 GPL U/mL (0-14); Anti-Cardiolipin Ab, IgM, Qn < 9 MPL U/mL (0-12); Beta-2-Glycoprotein I IgA <9 (0-25); Beta-2-Glycoprotein I IgG <9 (0-20); Beta-2-Glycoprotein I IgM <9 (0-32); Dilute Prothrombin Time (dPT) 36.6 sec (0.0-47.6); Dilute Russell Viper Venom 38.6 sec (0.0-47.0); Interpretation Comment: (.); PTT-LA 35.6 sec (0.0-43.5); Thrombin Time 16.9 sec (0.0-23.0); dPT Confirm Ratio 1.08 Ratio (0.00-1.34)
== END | disposition home or self-care (01) ==
PROVIDERS: Referring Provider Obstetrics & Gynecology; Visit Provider Obstetrics & Gynecology
DX: O03.4 Incomplete spontaneous abortion without complication (principal); E66.9 Obesity, unspecified; O99.210 Obesity complicating pregnancy, unspecified trimester; O26.20 Pregnancy care for patient with recurrent pregnancy loss, unspecified trimester
CPT/HCPCS: 36415; 83036; 84443; 86146; 86147

== ENCOUNTER → 2023-10-08 | Outpatient (CLI) | payer BC, SELFPAY ==
[2023-10-08 17:49] LABS: hCG Titer Quant., Serum 42076 mIU/mL (1-3)
== END | disposition home or self-care (01) ==
LOC: LAB 16:14
PROVIDERS: PCP Family Medicine; Referring Provider Obstetrics & Gynecology; Visit Provider Obstetrics & Gynecology
DX: N96 Recurrent pregnancy loss (principal)
CPT/HCPCS: 36415; 84702

== ENCOUNTER → 2023-10-21 | Outpatient (CLI) | payer BC, SELFPAY ==
[2023-10-26 00:07] LABS: Chlamydia By Nucleic Acid AMP Negative (Negative); Gonococcus By Nucleic Acid AMP Negative (Negative)
== END | disposition home or self-care (01) ==
LOC: LABSPEC 12:05
PROVIDERS: PCP Family Medicine; Referring Provider Obstetrics & Gynecology; Visit Provider Obstetrics & Gynecology
DX: O09.90 Supervision of high risk pregnancy, unspecified, unspecified trimester (principal); Z3A.00 Weeks of gestation of pregnancy not specified
CPT/HCPCS: 87086; 87491; 87591

== ENCOUNTER → 2023-11-05 | Outpatient (CLI) | payer BC, SELFPAY ==
[2023-11-05 12:31] LABS: Absolute Neutrophil Count 2.6 X10^3/uL (2.0-7.7); Basophil# 0.02 X10^3/uL; Basophil% 0.6 % (0-1); Eosinophil# 0.04 X10^3/uL; Eosinophils% 1.1 % (0-5); Hematocrit 34.2 % (37-47); Hemoglobin 11.8 g/dL (12.0-15.0); Lymphocyte % 19.3 % (19-41); Mean Corp Hgb Conc 34.5 g/dL (32-36); Mean Corpuscular Hgb 29.4 pg (27.0-32.0); Mean Corpuscular Volume 85.1 fL (81-99); Mean Platelet Vol. 11.7 fl (6.2-12.0); Monocyte# 0.29 X10^3/uL; NRBC Flagged by Analyzer 0 % (0-5); Neutrophil # 2.56 X10^3/uL (2.7-7.7); Neutrophil % 70.7 % (47-70); Platelet Count 176 K/mm3 (150-450); RBC Distribution Width CV 12.7 % (11.6-14.6); RBC Distribution Width SD 39.3 fl (35.1-43.9); Red Blood Count 4.02 M/mm3 (4.2-5.4); White Blood Count 3.6 K/mm3 (4.4-11.0)
[2023-11-05 13:47] LABS: HIV - WCH Non-Reactive (Nonreactive); Hemoglobin A1c 4.5 % (3.8-5.6); Hepatitis B Surface Antigen Non-Reactive (Nonreactive); Hepatitis C Antibody Non-Reactive (Nonreactive); Rubella IgG Reactive (Nonreactive); Syphilis Antibodies Non-reactive
== END | disposition home or self-care (01) ==
PROVIDERS: PCP Family Medicine; Referring Provider Obstetrics & Gynecology; Visit Provider Obstetrics & Gynecology
DX: O99.210 Obesity complicating pregnancy, unspecified trimester (principal); O26.20 Pregnancy care for patient with recurrent pregnancy loss, unspecified trimester; Z3A.00 Weeks of gestation of pregnancy not specified
CPT/HCPCS: 36415; 83036; 85025; 86703; 86762; 86780; 86803; 86850; 86900; 86901; 87340

== ENCOUNTER → 2024-03-10 | Outpatient (CLI) | payer BC, SELFPAY ==
[2024-03-10 12:33] LABS: Absolute Lymphocyte Count 0.77 X10^3/uL (0.83-4.51); Absolute Neutrophil Count 4.5 X10^3/uL (2.0-7.7); Basophil# 0.02 X10^3/uL; Basophil% 0.3 % (0-1); Eosinophil# 0.05 X10^3/uL; Eosinophils% 0.9 % (0-5); Hematocrit 32.5 % (37-47); Lymphocyte # 0.77 X10^3/ul (0.83-4.51); Lymphocyte % 13.4 % (19-41); Mean Corp Hgb Conc 33.8 g/dL (32-36); Mean Corpuscular Hgb 31.1 pg (27.0-32.0); Mean Corpuscular Volume 91.8 fL (81-99); Mean Platelet Vol. 11.3 fl (6.2-12.0); Monocyte# 0.32 X10^3/uL; Monocyte% 5.6 % (0-10); NRBC Flagged by Analyzer 0 % (0-5); Neutrophil # 4.53 X10^3/uL (2.7-7.7); Neutrophil % 78.9 % (47-70); Platelet Count 194 K/mm3 (150-450); RBC Distribution Width CV 13.2 % (11.6-14.6); Red Blood Count 3.54 M/mm3 (4.2-5.4); White Blood Count 5.7 K/mm3 (4.4-11.0)
[2024-03-10 13:29] LABS: Glucose Challenge Gest 1H 50g 137 mg/dL (70-140)
[2024-03-10 14:36] LABS: HIV - WCH Non-Reactive (Nonreactive); Syphilis Antibodies Non-reactive
== END | disposition home or self-care (01) ==
PROVIDERS: Obstetrics & Gynecology; PCP Family Medicine; Referring Provider Advanced Practice Midwife; Visit Provider Advanced Practice Midwife
DX: O09.90 Supervision of high risk pregnancy, unspecified, unspecified trimester (principal); Z13.1 Encounter for screening for diabetes mellitus; Z3A.00 Weeks of gestation of pregnancy not specified
CPT/HCPCS: 36415; 82950; 85025; 86703; 86780

== ENCOUNTER → 2024-03-15 | Outpatient (CLI) | payer BC, SELFPAY ==
[2024-03-15 07:58] LABS: Bedside Glucose 71 mg/dL (74-106)
[2024-03-15 08:40] LABS: Glucose GTT-Gestation. Fasting 79 mg/dL (<105)
[2024-03-15 09:11] LABS: Glucose GTT-Gestational 1 Hr 140 mg/dL (<190)
[2024-03-15 11:00] LABS: Glucose GTT-Gestational 2 Hr 106 mg/dL (<165)
[2024-03-15 11:25] LABS: Glucose GTT-Gestational 3 Hr 68 L (<145)
== END | disposition home or self-care (01) ==
LOC: LAB 07:34
PROVIDERS: PCP Family Medicine; Referring Provider Obstetrics & Gynecology; Visit Provider Obstetrics & Gynecology
DX: O99.810 Abnormal glucose complicating pregnancy (principal); Z3A.00 Weeks of gestation of pregnancy not specified
CPT/HCPCS: 36415; 82951; 82952; 82962

== ENCOUNTER → 2024-05-05 | Outpatient (CLI) | payer BC, SELFPAY | END | disposition home or self-care (01) | LOC: LABSPEC 16:23 | PROVIDERS: PCP Family Medicine; Referring Provider Obstetrics & Gynecology; Visit Provider Obstetrics & Gynecology | DX: O09.90 Supervision of high risk pregnancy, unspecified, unspecified trimester (principal); Z3A.00 Weeks of gestation of pregnancy not specified | CPT/HCPCS: 87081 ==

== ENCOUNTER 2024-06-01 22:10 | Inpatient (IN) | payer BC, SELFPAY ==
[2024-06-01 20:32] VITALS: BMI 34.1
[2024-06-01 20:40] VITALS: BP 130/74; PULSE 106; RESP 16; TEMP 36.6; O2SAT 97
[2024-06-01 21:43] LABS: ROM Internal Control Test YES-OK TO RESULT pt. (Internal QC); ROM Patient Test Negative (Negative); Record Kit Lot#, ROM+ K2451
[2024-06-01] MEDS: Lactated Ringers 1,000 ML 50 ML IV (22:25)
[2024-06-01] MEDS: Mag Hydrox/Al Hydrox/Simeth 30 ML UDC PO (22:32)
[2024-06-01 22:40] LABS: Absolute Lymphocyte Count 1.79 X10^3/uL (0.83-4.51); Absolute Neutrophil Count 7.5 X10^3/uL (2.0-7.7); Basophil# 0.06 X10^3/uL; Basophil% 0.6 % (0-1); Eosinophil# 0.08 X10^3/uL; Eosinophils% 0.8 % (0-5); Hematocrit 34.6 % (37-47); Hemoglobin 12.2 g/dL (12.0-15.0); Lymphocyte # 1.79 X10^3/ul (0.83-4.51); Lymphocyte % 17.5 % (19-41); Mean Corp Hgb Conc 35.3 g/dL (32-36); Mean Corpuscular Hgb 30.7 pg (27.0-32.0); Mean Corpuscular Volume 86.9 fL (81-99); Mean Platelet Vol. 10.9 fl (6.2-12.0); Monocyte# 0.65 X10^3/uL; Monocyte% 6.4 % (0-10); NRBC Flagged by Analyzer 0 % (0-5); Neutrophil # 7.47 X10^3/uL (2.7-7.7); Neutrophil % 73.2 % (47-70); Platelet Count 206 K/mm3 (150-450); RBC Distribution Width CV 13.3 % (11.6-14.6); RBC Distribution Width SD 41.5 fl (35.1-43.9); Red Blood Count 3.98 M/mm3 (4.2-5.4); White Blood Count 10.2 K/mm3 (4.4-11.0)
[2024-06-01 23:14] LABS: Syphilis Antibodies Non-reactive
[2024-06-01] MEDS: Acetaminophen 500 MG Tablet PO (23:25)
--- NOTE | 2024-06-01 23:56 | HP.PCM.OB_ITS ---
HPI - General General Date of Admission: 06/01/24 HPI Narrative DELMA TISNLEY, is a 29 y/o @ 39 weeks 6 days who presents to L&D with the complaint of painful contractions that started earlier today. While in triage her cervix changed from 4 to 5 cm. The decision was made to admit to L&D for labor management. Maternal Data Information BEV Calculator Estimated Delivery Date Method Current WG Current Estimate 06/02/24 LMP (Certain) 39w 6d Other Estimates 06/04/24 Ultrasound #1 39w 4d PFSH PFS Medical History (Updated 06/01/24 @ 21:23 by Dora Thomas) Family history of hearing loss at age younger than 7 years anxiety Headache History of recurrent UTIs Incomplete miscarriage Supervision of high-risk Anxiety and depression Threatened Allergy/AdvReac Type Severity Reaction Status Date / Time doxycycline Allergy Intermediate Rash Verified 06/01/24 20:47 Family History Grandmother Breast cancer, Onset Age: 49 Maternal FH: multiple miscarriages or stillbirths maternal Mother Pre-eclampsia Anesthesia complication Allergic, per pt nearly . Difficult to wake up. Surgical History H/O dilation and curettage History of arthroplasty of left knee Carlock teeth extracted ACL injury tear Social History adopted: No household members: spouse and children number of children: 1 current occupational status: employed current occupation: [employer] in [place] current occupational exposures/hazards: No pets and animals: Yes (avoid litterbox) pets and animals: cat(s) and dog(s) history of recent travel: No sexually active: Yes Smoking Status: Never smoker alcohol intake: never substance use type: does not use well-balanced diet: daily or most days caffeine: No eating out: 1-3 times/week during the past year weight has: remained stable what type of physical activity do you participate in: walking frequency: daily duration: 45-60 minutes/day vilma/roman catholic: Protestant seatbelt use: always do you feel safe at home: Yes additional social history: Amy History 4 Elective abortions Hx Para 1 Spontaneous abortions 2 Hx # Term Pregnancies Ectopic pregnancies Hx # Pregnancies Multiple births # of living children 1 Past Pregnancies Del. Date Name GA/Weeks Outcome Route Bth Weight Infant Gen Labor Lgth Anesthesia Del Doroteoatn Provider FOB 12/12/18 Rypooja 40 live - full term Female epid ural [facility] D[facility] 03/10/22 6 spontaneous 06/21/23 D&C 10 spontaneous Delivery Date: 12/12/18 Last Updated by: Divina Negron 2 degree laceration Visit Details Expected Delivery Route/Plan Labor Preferences- CB/BF classes: [] labor support person: [] labor intervention preferences: [] pain management options preferred: [] cut cord/dad catch: [] : [] PP control planned: [] discussed possible routes of delivery and associated risks: [] special requests: [] Plans Covid status: [] Flu vaccine: [] Tdap vaccine: declined Rhogam: na LARC form signed: declined movement and labor precautions reviewed. Problem list reviewed and updated with the most current plan of care details and appropriate orders placed. Relevant counseling for the gestational age provided. Continue routine care and follow up unless otherwise noted in visit notes/problem list details OB Flowsheet Initial Weight: Not Recorded Date -?-?-?-?-?-?-?-?--?-?-?-?- EGA Weight BP Urine Prot -?-?-?-?-?-?-?-?-?-?-?-?- Glucose FHR FuHt Pres Dilation -?-?-?-?-?-?-?-?-?-?-?-?- Effaced St Visit Note 10/15/23 -?-?-?-?-?-?-?-?-?-?-?-?- 7w 0d 195 lb 6 oz 116/72 -?-?-?-?-?-?-?-?-?-?-?-?- 165 -?-?-?-?-?-?-?-?-?-?-?-?- seen for crampin g, has had bleeding in - viable IUP seen with hematoma still present, plan fu for new ob visit, reassurance given. 10/21/23 -?-?-?-?-?-?-?-?-?-?-?-?- 7w 6d 193 lb 109/69 -?-?-?-?-?-?-?-?-?-?-?-?- 160 -?-?-?-?-?-?-?-?-?-?-?-?- SM- had some fur ther spotting, measuring on target, SM- had some further spottin g, measuring on target, very very small hematoma, possible low lying placenta early formation, too early to tell 11/01/23 -?-?-?-?-?-?-?-?-?-?-?-?- 9w 3d 189 lb 118/78 Negative -?-?-?-?-?-?-?-?-?-?-?-?- Negative 160 -?-?-?-?-?-?-?-?-?-?-?-?- SM- spotting imp roving, still having crmaping. nausea. ordered compazine 11/16/23 -?-?-?-?-?-?-?-?-?-?-?-?- 11w 4d 187 lb 102/54 Negative -?-?-?-?-?-?-?-?-?-?-?-?- Negative 150 -?-?-?-?-?-?-?-?-?-?-?-?- SM- no vb lof cr amping 12/02/23 -?-?-?-?-?-?-?-?-?-?-?-?- 13w 6d 185 lb 2 oz 104/70 Nega tive -?-?-?-?-?-?-?-?-?-?-?-?- Negative 144 -?-?-?-?-?-?-?-?-?-?-?-?- JV- CRL measurin g 14 weeks. no annalee seen today. No vaginal bleeding. 12/17/23 -?-?-?-?-?-?-?-?-?-?-?-?- 16w 0d 182 lb 102/67 Negative -?-?-?-?-?-?-?-?-?-?-?-?- Negative 145 -?-?-?-?-?-?-?-?-?-?-?-?- SM- no vb crampi ng 01/14/24 -?-?-?-?-?-?-?-?-?-?-?-?- 20w 0d 184 lb 2 oz 116/77 Nega tive -?-?-?-?-?-?-?-?-?-?-?-?- Negative 140 -?-?-?-?-?-?-?-?-?-?-?-?- JV- no lof, vagi nal bleeding, or cramping. normal anatomy JV- no lof, vaginal bleeding , or cramping. normal anatomy. will try bonine for nausea as zofran was causing constipation. 02/11/24 -?-?-?-?-?-?-?-?-?-?-?-?- 24w 0d 185 lb 108/68 Negative -?-?-?-?-?-?-?-?-?-?-?-?- Negative 140 24 -?-?-?-?-?-?-?-?-?-?-?-?- SM- no vb lof go od fm no regular ctx 03/10/24 -?-?-?-?-?-?-?-?-?-?-?-?- 28w 0d 190 lb 110/66 -?-?-?-?-?-?-?-?-?-?-?-?- 150 28 -?-?-?-?--?-?-?-?-?-?-?-?- KW- NO vb/lof/ct x. good fm. had labs today. over last week is not feeling well after eating. feels lightheaded and flushed. 03/24/24 -?-?-?-?-?-?-?-?-?-?-?-?- 30w 0d 194 lb 2 oz 108/73 Nega tive -?-?-?-?-?-?-?-?-?-?-?-?- Negative 154 29 -?-?-?-?-?-?-?-?-?-?-?-?- JV- no lof, vagi nal bleeding, or dec fm. normal 3 hr. larc signed. to get vasectomy 04/03/24 -?-?-?-?-?-?-?-?-?-?-?-?- 31w 3d 194 lb 114/78 Negative -?-?-?-?-?-?-?-?-?-?-?-?- Negative 155 31 -?-?-?-?-?-?-?-?-?-?-?-?- kw- no vb/lof/ct x. good fm. Pepcid for heartburn 04/21/24 -?-?-?-?-?-?-?-?-?-?-?-?- 34w 0d 200 lb 2 oz 109/75 Nega tive -?-?-?-?-?-?-?-?-?-?-?-?- Negative 150 34 -?-?-?-?-?-?-?-?-?-?-?-?- SM- no vb lof go od fm no reulgar ctx 05/05/24 -?-?-?-?-?--?-?-?-?-?-?-?- 36w 0d 202 lb 2 oz 103/65 Nega tive -?-?-?-?-?-?-?-?-?-?-?-?- Negative 150 38 Cephalic -?-?-?-?-?-?-?-?-?-?-?-?- SM- no vb lof go od fm nor egular ctx gbs today 05/12/24 -?-?-?-?-?-?-?-?-?-?-?-?- 37w 0d 203 lb 99/69 Trace -?-?-?-?-?-?-?-?-?-?-?-?- Negative 145 37 Cephalic 1 -?-?-?-?-?-?-?-?-?-?-?-?- 60 -2 KW- no vb/ lof/ctx. good fm. no concerns 05/19/24 -?-?-?-?-?-?-?-?-?-?-?-?- 38w 0d 204 lb 2 oz 127/63 Nega tive -?-?-?-?-?-?-?-?-?-?-?-?- Negative 137 37 Cephalic 1 -?-?-?-?-?-?-?-?-?-?-?-?- 60 -2 JV- no com plaints. consider KAI next week if stiill at a37 or less fundal height. 05/26/24 -?-?-?-?-?-?-?-?-?-?-?-?- 39w 0d 206 lb 8 oz 110/77 Nega tive -?-?-?-?-?-?-?-?-?-?-?-?- Negative 145 37 Cephalic 1 -?-?-?-?-?-?-?-?-?-?-?-?- 60 -2 JV- no lof , vaginal bleeding, or dec fm. KAI is 12 today. ROS Constitutional Constitutional: Denies change in weight, fatigue, fever(s), headache(s), poor appetite or weakness Eyes Eyes: Denies blurry vision, change in vision, seeing flashes or spots in vision ENT HEENT: Denies dizziness, headache(s), loss taste/smell or sore throat Cardiovascular Cardiovascular: Denies chest pain, dizziness, dyspnea, irregular heart rhythm, leg edema, palpitations, rapid heart rate or vomiting Respiratory/Chest Respiratory/Chest: Denies chest tightness, cough, dyspnea or breast pain Gastrointestinal Gastrointestinal: Denies abdominal pain, anorexia, constipation, cramping, diarrhea, hemorrhoids, vomiting or weight changes Genitourinary Genitourinary: Denies dysuria, flank pain, genital lesions, genital pain, urinary frequency or urinary urgency Musculoskeletal Musculoskeletal: Denies back pain, difficulty walking, joint pain, limited range of motion, muscle cramps or numbness Integumentary Integumentary: Denies lesions or unusual bruising Neurologic Neurologic: Denies abnormal movements, abnormal speech, dizziness, numbness, seizure-like activity or syncope Psychiatric Psychiatric: Denies anxiety, behavioral changes, change in appetite, change in libido, cognitive impairment, confusion, depression, difficulty concentrating, hallucinations or suicidal thoughts Endocrine Endocrinology: Denies excessive sweating, polydipsia or polyuria Hematologic/Lymphatic Hematologic/Lymphatic: Denies easy bleeding, easy bruising or lymphadenopathy Allergic/Immunologic Allergic/Immunologic: Denies itchy eyes, lip swelling, seasonal rhinorrhea, rhinitis, throat swelling, tongue swelling, eczemia, wheezing or asthma Vital Signs Vital Signs Vital Signs: 06/01/24 20:40 06/01/24 20:40 06/01/24 20:40 Temperature Pulse Rate 106 H Respiratory Rate Blood Pressure 130/74 H BP Systolic 130 BP Diastolic 74 Pulse Ox 97 06/01/24 20:40 06/01/24 20:40 Temperature 97.8 F Pulse Rate Respiratory Rate 16 Blood Pressure BP Systolic BP Diastolic Pulse Ox Weight Weight: 205 lb 0.478 oz Body Mass Index (BMI) 34.1 Physical Exam Const alert, oriented x3, no apparent distress and healthy appearing General Appearance: cooperative; Negative for anxious HEENT normocephalic Face and Sinus: normal facial exam Eyes EOMs intact bilaterally and no scleral icterus General Eye: normal appearance of both eyes Neck full ROM and supple Lymph Lymphatic: no lymphadenopathy noted Chest Chest: abnormal inspection of the chest Resp normal respiratory effort Effort and Inspection: able to speak in complete sentences Cardio regular rate GI soft to palpation and non-tender Inspection: gravid Palpation: soft; Negative for tender external exam normal Amniotic Fluid: ROM+plus negative - Back/Spine no CVA tenderness Extremity normal to inspection, full ROM and no clubbing, cyanosis or edema General Extremity: Negative for calf tenderness or edema Skin Lesions: no lesions Rashes: no rashes Psych mental status grossly normal Labs Labs Labs: Blood Type O POSITIVE Antibody Screen NEGATIVE Hct 34.6 % (37-47) L Hgb 12.2 g/dL (12.0-15.0) Obstetrics Ultrasound Syphilis Total Ab Non-reactive Rubella IgG Antibody Reactive (Nonreactive) Hep Bs Antigen Non-Reactive (Nonreactive) Hepatitis C Antibody Non-Reactive (Nonreactive) Chlamydia DNA (ALDAIR) Negative (Negative) N.gonorrhoeae DNA (ALDAIR) Negative (Negative) HIV 1&2 Antibody Non-Reactive (Nonreactive) Glucose 1 Hr 50 gm 137 mg/dL (70-140) Gest Glucose Tolerance MG/DL Rhogam given: No Miscellaneous Test Assessment & Plan (1) Abnormal glucose affecting : COMMENT: nl 3 hour (2) Heart murmur: COMMENT: dx age 10 (3) Supervision of high-risk : COMMENT: PRR , BEV 06/02/24, girl kaila [place], Amy (4) : QUALIFIERS: Weeks of gestation: 39 weeks Qualified Code(s): Z3A.39 - 39 weeks gestation of COMMENT: . nl anatomy. 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 (7) Anxiety and depression: COMMENT: PSI information. has counseling sheet from [facility]. has never been on medication management. had significant pp anxiety with daughter. PLAN: Plan Patient presents IAL, plan expectant management for , pitocin/AROM PRN if needed. Pain management: none. GBS negative. Management of any complications: none I have reviewed the [facility] and made any clinically relevant updates.
[2024-06-02] VITALS (49 sets, daily range): BP systolic 97–161; BP diastolic 53–95; PULSE 63–175; RESP 1–18; TEMP 36.6–37.4; O2SAT 87–100
[2024-06-02] MEDS: Lactated Ringers 1,000 ML 999 ML IV
--- NOTE | 2024-06-02 00:09 | OB.VAGDELI_ITS ---
Assessment & Plan (1) Abnormal glucose affecting : COMMENT: nl 3 hour (2) Heart murmur: COMMENT: dx age 10 (3) Supervision of high-risk : COMMENT: PRR , BEV 06/02/24, girl kaila [place], Amy (4) : QUALIFIERS: Weeks of gestation: 39 weeks Qualified Code(s): Z3A.39 - 39 weeks gestation of COMMENT: . nl anatomy. 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 (7) Anxiety and depression: COMMENT: PSI information. has counseling sheet from [facility]. has never been on medication management. had significant pp anxiety with daughter. Maternal Data Information BEV Calculator Estimated Delivery Date Method Current WG Current Estimate 06/02/24 LMP (Certain) 40w 0d Other Estimates 06/04/24 Ultrasound #1 39w 5d Final BEV: 06/02/24 Vaginal Delivery Maternal Presentation Maternal Presentation: Active Labor Vaginal Delivery Information Procedure Performed: Spontaneous Vaginal Delivery Date of Procedure: 06/02/24 Pre-Procedure Diagnosis: 29 y/o @ 40 weeks, active labor Post-Procedure Diagnosis: 29 y/o @ 40 weeks, active labor Type of anesthesia: Epidural Estimated Blood Loss: 200cc Time of Delivery: 03:38 Findings Description of procedure: Patient began pushing and delivered the head in the ORTEGA presentation. The head was delivered atraumatically. The anterior and posterior shoulders delivered without complication followed by the rest of the and the was placed on the maternal abdomen. Delayed cord clamping was employed for approximately 60 seconds. Cord was clamped and cut and gentle traction was applied to the cord and the placenta delivered spontaneously immediately following it was noted to be intact with three-vessel cord. The perineum and vagina were inspected and noted to have a 1st degree perineal laceration. This was repaired with a 3-0 vicryl. EBL was 200cc. Patient and tolerated delivery well. Procedure findings: viable female infant kaila Presentation: Vertex Amniotic Membrane Rupture Type: Artificial Amniotic Fluid Description: Clear Placental Delivery Description: Spontaneous Placenta Disposition: [facility] Specimen collected: No Cord Vessel Description: 3 Vessels Cord Entanglement: None Infant A Gender: Female (1 minute): 8 (5 minute): 9 Campaign Management Specialist electrical unit rebuilder: No Post Vaginal Deli Medications given after delivery: IV Pitocin and IM Pitocin Episiotomy Description: None Laceration: 1st degree Complication Complications: No Multi Select Codes Urinary/Genital Urinary/Genital CPT Codes: 12284 Vaginal Delivery [facility]
--- NOTE | 2024-06-02 00:09 | DCINST_ITS ---
Discharge Instructions Diet Discharge Diet: No restrictions DC O2, CPAP, BIPAP needs Home O2 Discharge instructions: No Dressing / Incision Discharge Activity: Return to Normal Activity, May Not Drive (while taking narcotic pain medications.) and May Shower May resume sexual activity in: 4-6 weeks Dressing / Incision Call your doctor if your incision/area has: Continuous Slow Oozing, Sudden Increased Bleeding, Increased Pain/ Swelling, Increased Redness and Foul Smelling Discharge Follow Up Care Please Follow Up With: Jaclyn Villagran DO When: Call [phone] to make an appointment with your doctor in 6 weeks. If you had elevated blood pressure or 4th degree laceration, you will need to be seen in 2 weeks. Test Results: Test results from this visit will be discussed in further detail at your follow- up appointment, if applicable. Discharge Plan Admission Admit Date/Time: 06/01/24 22:10 Attending Provider: Jaclyn Villagran Primary Care Provider: Jaclyn Suarez Discharge Orders/Prescriptions Referrals / Follow Up: Jaclyn Suarez DO [Primary Care Provider] -
[2024-06-02] MEDS: fentaNYL-bupivacaine (epidural) 100 ML BAG EPIDURAL (01:25)
[2024-06-02] MEDS: Oxytocin 10 UNITS/ML Vial IM (03:48)
[2024-06-02] MEDS: Oxytocin 15 Units/NS 250ml 15 UNITS/250 ML IV.SOLN 83 UNITS IV (03:49)
[2024-06-02] MEDS: Ibuprofen 600 MG Tablet PO ×2 (05:37→13:03)
[2024-06-02] MEDS: Acetaminophen 500 MG Tablet 1000 MG PO ×2 (07:52→16:17)
[2024-06-02] MEDS: Senna/Docusate Sodium 1 Tablet PO (13:03)
[2024-06-03] MEDS: Ibuprofen 600 MG Tablet PO ×2 (00:29→11:07)
[2024-06-03 00:32] VITALS: BP 111/82; PULSE 89; RESP 16; TEMP 36.7; O2SAT 100
[2024-06-03] MEDS: Acetaminophen 500 MG Tablet 1000 MG PO (03:19)
[2024-06-03 04:20] VITALS: BP 109/78; PULSE 63; RESP 16; TEMP 36.5; O2SAT 98
--- NOTE | 2024-06-03 07:07 | PCM.PN.CNM ---
Subjective Subjective Patient doing well without complaints. Tolerating PO. Ambulating and voiding without difficulty. Feeding well. Denies chest pain, shortness of breath, calf pain/swelling, fevers, chills, lightheadedness. Objective Data Objective Data Vital Signs: Vital Signs Temp Pulse Resp BP Pulse Ox O2 Del Method 97.7 F L 63 16 109/78 98 Room Air 06/03/24 04:20 06/03/24 04:20 06/03/24 04:20 06/03/24 04:20 06/03/24 04:20 06/03/24 04:20 Oxygen Delivery Method Room Air Weight: 205 lb 0.478 oz Body Mass Index (BMI) 34.1 Intake & Output: Intake and Output for Last 24 Hours 06/01/24 06/02/24 06/03/24 23:59 23:59 23:59 Intake Total 2250.00 / 2250.00 Output Total 475 / 475 Balance 1775.00 / 1775.00 Lab / Micro Data 06/01/24 22:25 Physical Exam Const alert and oriented x3 HEENT normocephalic Lymph Lymphatic: no lymphadenopathy noted Chest inspection of chest normal and inspection of breasts normal Resp normal respiratory effort, normal air movement and no use of accessory muscles Effort and Inspection: able to speak in complete sentences Cardio regular rate and regular rhythm GI normal to inspection, nondistended, normoactive bowel sounds Uterus Palpation: uterus fundus firm Extremity normal to inspection, full ROM and no pedal edema Skin no rashes or lesions noted Psych mental status grossly normal Assessment & Plan (1) (spontaneous vaginal delivery): COMMENT: JV girl PLAN: Plan s/p PPD #1 1. routine post delivery care 2. breast feeding- support given 3. rh positive 4. rubella immune 5. desires d/c home today
[2024-06-03 07:50] VITALS: BP 116/87; PULSE 83; RESP 16; TEMP 36.6; O2SAT 97
--- NOTE | 2024-06-03 11:35 | CASEMGMT ---
Social Work Assessment Labor and Delivery Unit Patient Address: [address] [place] [address] [place] [address] Phone number: [phone] Date of Referral: 06/01/24 Time of Referral: 22:58 Referred By: Jaclyn Villagran Date of Intervention: ?06/03/24 Time of Intervention: 11:35 Reason for Referral: History of anxiety History obtained from: Medical records, mother of baby (MOB) and father of baby (FOB).? Household composition: MOB (Delma, age 27), FOB (Aym, age 28), their 5 year old daughter Parris and daughter Rosa, born 06/02/24. Patient's parent/guardian status: MOB and FOB are , both are actively involved and will be providing care for baby. MOB denied any concerns with domestic violence and described a positive and supportive relationship with the FOB. Medical History: ?: ?4, Para, now 2.? MOB has had 2 SAB, one on 03/11/22 at 6 weeks and one on 06/21/23 at 10 weeks. MOB received care through [facility] beginning at 7 weeks and 0 days.? Visits were observed to be routine. Apgars: 8 and 9. Weight: 7lbs, 13 oz. Feed Mixer: Dr. Maxi Nichole. Educational Status: MOB and FOB denied any issues or concerns with reading or writing. MOB attended some college and FOB earned a high school diploma. Financial Status: MOB and FOB reported their income is sufficient to meet the needs of their family at this time. MOB is currently employed [employer] with [employer] in [place] and the FOB is employed [employer] with an [employer]. Infant Supplies: MOB and FOB reported they have all the supplies they need for baby at this time including but not limited to: Car Seat, bassinet, pack-n-play, crib, diapers, bottles, breast pump and clothing. Childcare/Caregiver(s):? MOB will be taking 8 weeks of maternity leave and the FOB will at minimum be taking 1 week of paternity leave. When the MOB and FOB return to work, will attend daycare with sibling. Transportation:? MOB and FOB reported they are both licensed drivers and have a reliable vehicle to take baby to and from all medical appointments. No transportation issues identified. Programs/Agencies Involved: MOB and FOB denied any current programs or agencies involved at this time and also denied a need for any agency involvement. Children Services/Legal Issues:? Denied. Behavioral Health Issues: ??Mental Health History: ?RACHELLE reported she?s never been formally diagnosed with anything however feels that she had post- anxiety and possibly mild depression. Patient stated it was short term and mostly anxiety such as making sure her baby was breathing at all times. MOB denied any current anxiety or depression.?Substance Use History:? MOB and FOB denied any previous or current drug or alcohol abuse. ???Family History: MOB and FOB reported that ?s maternal grandmother (MGM) and paternal grandmother (PGM) have anxiety and depression. MOB and FOB denied any family history of drug or alcohol abuse on either side of the family. ???Drug Screens: ?None obtained at the time of this admission. Family/Social Stressors: ?MOB and FOB denied any current family or social stressors. Support Systems: Ample.? RACHELLE identified her biggest supports as the FOB, MGM and PGM. Depression/Shaken Baby/Safe Sleeping: salvage worker provided verbal and written education on PPD, Safe Sleeping and Shaken Baby.? Parents verbalized an understanding. ??? ASSESSMENT:? MOB and FOB provided consent to social work visit. Upon arrival, MOB was in the bed and the FOB was close by at bedside. Both MOB and FOB were verbally engaged, talkative and cooperative. salvage worker observed positive interaction between the MOB and the FOB and ?between the MOB and .? MOB was observed to be very gentle and attentive with and was rubbing ?s head. MOB and FOB reported how excited they are with ? and MOB and FOB would smile when talking or looking at .? No concerns noted. Safe Plan of Care for infant related to substance use: N/A; not needed. ? PLAN:? Baby to be discharged home when ready.? salvage worker also provided written information on depression, depression resources and Help Me Grow as additional resources offered by social work instructor which MOB and FOB accepted. No other services requested or indicated. Jaclyn Lema, ONCOLOGY PATIENT NAVIGATOR, METHODS SPECIALIST ENGINEER
== END 2024-06-03 13:30 | disposition home or self-care (01) | DRG 807 ==
LOC: WPOUT 22:12 → WP 22:12
PROVIDERS: Admitting Provider Obstetrics & Gynecology; PCP Family Medicine; Referring Provider Obstetrics & Gynecology; Visit Provider Obstetrics & Gynecology
DX: O70.0 First degree perineal laceration during delivery (principal); Z37.0 Single live birth; O99.344 Other mental disorders complicating childbirth; F32.A Depression, unspecified; O99.214 Obesity complicating childbirth; F41.9 Anxiety disorder, unspecified; O99.814 Abnormal glucose complicating childbirth; R01.1 Cardiac murmur, unspecified; N96 Recurrent pregnancy loss; Z3A.40 40 weeks gestation of pregnancy; O99.892 Other specified diseases and conditions complicating childbirth
CPT/HCPCS: 59025; 59050; 84112; 85025; 86780; 86850; 86900; 86901; 99221; G0378

== ENCOUNTER → 2024-07-05 | Outpatient (CLI) | payer BC, SELFPAY ==
[2024-07-09 11:07] LABS: HPV APTIMA, High Risk Negative (Negative)
== END | disposition home or self-care (01) ==
LOC: LABSPEC 10:03
PROVIDERS: PCP Family Medicine; Referring Provider Nurse Practitioner Women's Health; Visit Provider Nurse Practitioner Women's Health
DX: Z12.4 Encounter for screening for malignant neoplasm of cervix (principal)
CPT/HCPCS: 87624; 88175; G0145